=== PATIENT | male | born 1960 | race Caucasian/White ===

== ENCOUNTER 2019-10-11 07:30 | Outpatient (CLI) | payer OTHER, SELFPAY ==
[2019-10-11 08:54] LABS: Anion Gap 8 mmol/L (8-16); Blood Urea Nitrogen 15 mg/dL (7-18); Calcium 8.4 mg/dL (8.5-10.1); Carbon Dioxide 28 mmol/L (21-32); Chloride 105 mmol/L (98-108); Estimated Glomerular Filt Rate > 60; Glucose 140 mg/dL (70-99); Osmolality Calculated 294 mOsm/kg (285-295); Potassium 4.4 mmol/L (3.5-5.1); Sodium 141 mmol/L (136-145)
== END 2019-10-11 07:31 | disposition home or self-care (01) ==
PROVIDERS: PCP Family Medicine
DX: I27.20 Pulmonary hypertension, unspecified (principal)
CPT/HCPCS: 36415; 80048

== ENCOUNTER 2020-02-03 08:40 | Outpatient (CLI) | payer OTHER, SELFPAY ==
[2020-02-03 09:01] LABS: Hemoglobin A1C 6.7 % (<5.7)
== END 2020-02-03 08:41 | disposition home or self-care (01) ==
LOC: CHSLAB 08:43
PROVIDERS: PCP Family Medicine; Visit Provider Family Medicine
DX: R73.03 Prediabetes (principal); K63.5 Polyp of colon; I10 Essential (primary) hypertension; R03.0 Elevated blood-pressure reading, without diagnosis of hypertension; I48.91 Unspecified atrial fibrillation
CPT/HCPCS: 36415; 83036

== ENCOUNTER 2020-08-14 08:43 | Outpatient (CLI) | payer OTHER, SELFPAY ==
[2020-08-14 08:54] LABS: Basophils Absolute Auto 0.04 K/mm3 (0.00-0.10); Basophils Percent Auto 0.5 % (0.0-1.0); Hematocrit 46.9 % (40.0-54.0); Hemoglobin 15.8 g/dL (14.0-18.0); Immature Granulocyte Absolute 0.03 K/mm3 (0.00-0.00); Immature Granulocyte Percent A 0.4 % (0.0-0.0); Lymphocytes Percent Auto 19.6 % (18.0-42.0); Mean Corpuscular HGB Conc 33.7 g/dL (32.0-36.0); Mean Corpuscular Hemoglobin 30.2 pg (27.0-31.0); Mean Corpuscular Volume 89.7 fL (78.0-102.0); Mean Platelet Volume 9.8 fl (8.7-11.0); Monocytes Absolute Auto 0.65 K/mm3 (0.10-0.90); Monocytes Percent Auto 8.5 % (2.0-11.0); Neutrophils Absolute Auto 5.4 K/mm3 (1.7-7.2); Platelet Count Result 205 K/mm3 (150-420); Red Blood Count 5.23 M/mm3 (4.70-6.10); Red Cell Distribution Width 13.1 % (11.6-14.4); White Blood Count 7.7 K/mm3 (4.8-10.8)
[2020-08-14 09:03] LABS: Hemoglobin A1C 5.8 % (<5.7)
[2020-08-14 09:53] LABS: Alanine Aminotransferase 23 U/L (16-63); Albumin Level 3.5 g/dL (3.4-5.0); Alkaline Phosphatase 69 U/L (46-116); Anion Gap 10 mmol/L (8-16); Aspartate Amino Transferase 27 U/L (15-37); Bilirubin,Total 0.3 mg/dL (0.00-1.00); Blood Urea Nitrogen 17 mg/dL (7-18); Calcium 8.5 mg/dL (8.5-10.1); Carbon Dioxide 29 mmol/L (21-32); Chloride 106 mmol/L (98-108); Cholesterol 158 mg/dL (0-200); Estimated Glomerular Filt Rate > 60; Glucose 125 mg/dL (70-99); HDL Direct 49 mg/dL (40-60); LDL Cholesterol Calculated 95 mg/dL (<130); Osmolality Calculated 302 mOsm/kg (285-295); Potassium 4.5 mmol/L (3.5-5.1); Sodium 145 mmol/L (136-145); Total Protein 6.4 g/dL (6.4-8.2); Triglycerides 68 mg/dL (0-150)
[2020-08-14 10:07] LABS: Thyroid Stimulating Hormone Reflex 0.73 u/IU/mL (0.36-3.74)
== END 2020-08-14 08:44 | disposition home or self-care (01) ==
LOC: CHSLAB 08:45
PROVIDERS: PCP Family Medicine; Visit Provider Family Medicine
DX: E11.9 Type 2 diabetes mellitus without complications (principal); I10 Essential (primary) hypertension
CPT/HCPCS: 36415; 80053; 80061; 83036; 84443; 85025

== ENCOUNTER 2022-03-30 07:02 | Outpatient (CLI) | payer BC, SELFPAY ==
--- NOTE | ~2022-03-30 | XR_ITS ---
EXAMINATION: XR knee LT 2V DATE: 03/30/2022 07:28 INDICATION: Left knee pain TECHNIQUE: Two views of the left knee were obtained. COMPARISON: None. FINDINGS: Alignment is normal. No fracture or osteochondral lesion. There is moderate tricompartmenta l osteoarthritis and chondrocalcinosis of menisci. No joint effusion/synovitis. Soft tissues are unr emarkable. IMPRESSION: 1. Tricompartmental osteoarthritis. Reviewed, dictated and finalized at location B. ETING ANALYTICS SPECIALIST
--- NOTE | ~2022-03-30 | XR_ITS ---
EXAMINATION: XR knee RT 2V DATE: 03/30/2022 07:28 INDICATION: Right knee pain TECHNIQUE: Two views of the right knee were obtained. COMPARISON: None. FINDINGS: Alignment is normal. No fracture or osteochondral lesion. There is mild to moderate tricomp artmental osteoarthritis. No joint effusion/synovitis. Calcified atherosclerosis is noted. IMPRESSION: 1. Tricompartmental osteoarthritis. Reviewed, dictated and finalized at location B. SPORTATION REFRIGERATION TECHNICIAN
[2022-03-30 07:25] LABS: Basophils Absolute Auto 0.04 K/mm3 (0.00-0.10); Basophils Percent Auto 0.4 % (0.0-1.0); Eosinophils Absolute Auto 0.02 K/mm3 (0.02-0.50); Eosinophils Percent Auto 0.2 % (1.0-6.0); Hematocrit 46.2 % (40.0-54.0); Hemoglobin 15.5 g/dL (14.0-18.0); Immature Granulocyte Absolute 0.03 K/mm3 (0.00-0.00); Immature Granulocyte Percent A 0.3 % (0.0-0.0); Lymphocytes Absolute Auto 2.44 K/mm3 (1.10-4.50); Lymphocytes Percent Auto 25.4 % (18.0-42.0); Mean Corpuscular HGB Conc 33.5 g/dL (32.0-36.0); Mean Corpuscular Hemoglobin 30.1 pg (27.0-31.0); Mean Corpuscular Volume 89.7 fL (78.0-102.0); Mean Platelet Volume 10.1 fl (8.7-11.0); Monocytes Percent Auto 9.4 % (2.0-11.0); Neutrophils Absolute Auto 6.2 K/mm3 (1.7-7.2); Neutrophils Percent Auto 64.3 % (50.0-70.0); Platelet Count Result 230 K/mm3 (150-420); Red Blood Count 5.15 M/mm3 (4.70-6.10); Red Cell Distribution Width 12.2 % (11.6-14.4); White Blood Count 9.6 K/mm3 (4.8-10.8)
[2022-03-30 07:35] LABS: Hemoglobin A1C 6.3 % (<5.7)
[2022-03-30 08:05] LABS: Alanine Aminotransferase 19 U/L (16-63); Albumin Level 3.7 g/dL (3.4-5.0); Alkaline Phosphatase 69 U/L (46-116); Anion Gap 2 mmol/L (8-16); Aspartate Amino Transferase 20 U/L (15-37); Bilirubin,Total 0.5 mg/dL (0.00-1.00); Blood Urea Nitrogen 18 mg/dL (7-18); Calcium 8.4 mg/dL (8.5-10.1); Carbon Dioxide 33 mmol/L (21-32); Chloride 101 mmol/L (98-108); Cholesterol 182 mg/dL (0-200); Estimated Glomerular Filt Rate > 60; Glucose 146 mg/dL (70-99); HDL Direct 46 mg/dL (40-60); LDL Cholesterol Calculated 127 mg/dL (<130); Osmolality Calculated 286 mOsm/kg (285-295); Sodium 136 mmol/L (136-145); Total Protein 6.8 g/dL (6.4-8.2); Triglycerides 46 mg/dL (0-150)
== END 2022-03-30 07:03 | disposition home or self-care (01) ==
LOC: CHSLAB 07:06
PROVIDERS: PCP Nurse Practitioner Family; Visit Provider Nurse Practitioner Family
DX: I10 Essential (primary) hypertension (principal); E11.9 Type 2 diabetes mellitus without complications; M25.562 Pain in left knee; M25.561 Pain in right knee; M17.0 Bilateral primary osteoarthritis of knee
CPT/HCPCS: 36415; 73560; 80053; 80061; 83036; 85025

== ENCOUNTER 2022-05-24 07:39 | Outpatient (CLI) | payer BC, SELFPAY ==
--- NOTE | ~2022-05-24 | XR_ITS ---
XR knee RT min 4V 05/24/2022 08:05 Indication: Chronic bilateral knee pain Procedure: 4 views right knee Comparison: 03/30/2022 Findings: There is stable mild-moderate tricompartment osteoarthritis, most advanced in the medial kelli int space. There is a loose body along the dorsal aspect of the joint. No acute fracture or traumatic malalignment. No joint effusion. No foreign bodies. Impression: 1: Stable mild-moderate tricompartment osteoarthritis. Reviewed, dictated and finalized at location L. Impression: 1: Stable mild-moderate tricompartment osteoarthritis.
--- NOTE | ~2022-05-24 | XR_ITS ---
EXAMINATION: XR knee LT min 4V DATE: 05/24/2022 08:05 INDICATION: Chronic left knee pain. TECHNIQUE: 4 views of left knee including weightbearing views were obtained. COMPARISON: Left knee radiographs 03/30/2022 FINDINGS: There is varus angulation at the knee. No fracture. There is severe osteoarthritis of media l compartment, mild osteoarthritis of lateral compartment, moderate osteoarthritis of patellofemoral compartment. There is chondrocalcinosis of the menisci. No knee joint effusion. IMPRESSION: 1. Severe left knee osteoarthritis. Reviewed, dictated and finalized at location A.
== END 2022-05-24 07:40 | disposition home or self-care (01) ==
LOC: CHSIMG 07:43
PROVIDERS: PCP Nurse Practitioner Family; Visit Provider Orthopaedic Surgery
DX: M25.561 Pain in right knee (principal); M25.562 Pain in left knee; M17.0 Bilateral primary osteoarthritis of knee
CPT/HCPCS: 73564

== ENCOUNTER 2022-09-14 15:09 | Outpatient (CLI) | payer BC, SELFPAY ==
[2022-09-14 17:12] LABS: Urine Cotinine NEGATIVE
== END 2022-09-14 15:10 | disposition home or self-care (01) ==
LOC: ANHLAB 15:11
PROVIDERS: PCP Nurse Practitioner Family; Visit Provider Orthopaedic Surgery
DX: Z01.818 Encounter for other preprocedural examination (principal); M17.12 Unilateral primary osteoarthritis, left knee; F17.200 Nicotine dependence, unspecified, uncomplicated
CPT/HCPCS: 80307

== ENCOUNTER 2022-10-06 12:49 | Outpatient (CLI) | payer BC, SELFPAY ==
[2022-10-06 14:21] LABS: Basophils Percent Auto 0.3 % (0.2-1.2); Hematocrit 48.8 % (42.0-52.0); Hemoglobin 16.3 g/dL (14.0-18.0); Immature Granulocyte Absolute 0.03 K/mm3 (0.00-0.031); Immature Granulocyte Percent A 0.3 % (0-0.5); Lymphocytes Absolute Auto 2.17 K/mm3 (0.9-3.2); Lymphocytes Percent Auto 21.4 % (18.3-44.2); Mean Corpuscular HGB Conc 33.4 g/dl (32-36); Mean Corpuscular Hemoglobin 29.9 pg (26-34); Mean Corpuscular Volume 89.4 fl (80-100); Mean Platelet Volume 9.8 fl (7.4-10.4); Monocytes Percent Auto 9.6 % (2.6-8.5); Neutrophils Absolute Auto 6.9 K/mm3 (1.3-6.7); Neutrophils Percent Auto 68.4 % (45.5-73.1); Platelet Count Result 191 k/mm3 (150-375); Red Blood Count 5.46 M/mm3 (4.6-6.20); Red Cell Distribution Width 13.2 % (11.5-14.5); White Blood Count 10.1 K/mm3 (4.5-10.0)
[2022-10-06 14:31] LABS: Albumin Level 4.1 g/dL (3.5-5.1); Anion Gap 6 mmol/L (8-16); Blood Urea Nitrogen 17 mg/dL (9-20); Calcium 8.7 mg/dL (8.4-10.2); Carbon Dioxide 28 mmol/L (22-30); Chloride 104 mmol/L (98-107); Estimated Glomerular Filt Rate > 60; Glucose 128 mg/dL (65-110); Potassium 4.5 mmol/L (3.4-5.0); Sodium 138 mmol/L (137-145)
[2022-10-06 14:33] LABS: Hemoglobin A1C 6.1 % (<5.7)
[2022-10-06 14:35] LABS: Appearance Urine Clear (Clear); Bilirubin Urine Negative (Negative); Blood Urine Negative (Negative); Color Urine Yellow (Yellow); Glucose Urine UA Negative (Negative); Ketones Urine Negative (Negative); Leukocyte Esterase Ur Negative LEU/UL (Negative); Nitrate Urine Negative (Negative); Protein Urine Negative (Negative); Specific Grav Ur 1.006 (1.001-1.035); Urobilinogen Urine 0.2 mg/dL (<2.0)
[2022-10-06 14:40] LABS: Add Urine Microscopic? NO
== END 2022-10-06 12:50 | disposition home or self-care (01) ==
LOC: ANHSURGERY 12:52
PROVIDERS: PCP Nurse Practitioner Family; Visit Provider Orthopaedic Surgery
DX: Z01.818 Encounter for other preprocedural examination (principal); M17.12 Unilateral primary osteoarthritis, left knee
CPT/HCPCS: 36415; 80048; 81003; 82040; 83036; 85025; 85610; 85730; 86850; 86900; 86901; 87081

== ENCOUNTER 2022-10-18 00:18 | Day surgery (SDC) | payer BC, SELFPAY ==
--- NOTE | 2022-08-24 14:10 | PC.NURSE ---
PT HERE FOR PRE-OP APPT FOR UP COMING LT TKA - PT STATES CHEWING TOBACCO & LAST CHEWED 08/24/22 - DR. RADER'S OFFICE CALLED SPOKE WITH ELVIRA AND INFORMED OF ABOVE ALONG WITH PT SCHEDULED TO HAVE 2 UPPER TEETH EXTRACTED 08/29/22 - D/T NICOTINE USE PRE-OP APPT ABORTED AND PT INFORMED PER ELVIRA THAT ONCE TOBACCO FREE FOR 30 DAYS AND NEGATIVE COTININE TEST OBTAINED SURGERY WILL BE RESCHEDULED - UNDERSTANDING VOICED.
[2022-10-06 13:13] VITALS: BMI 29.6
--- NOTE | 2022-10-06 13:25 | PC.NURSE ---
Report to the Outpatient Waiting Room, entrance under the green pavilion located off [facility], at time _8:30AM on date __10/18/22 . Planned Procedure Time: __10:30AM . Time changes happen often and if your time is changed the preop area will call you the afternoon before. - You and your visitor will be asked to self-screen and do not enter if you have any COVID symptoms. - A mask is optional within the hospital at this time. Patients may have clear liquids (water, carbonated beverages, clear teas, apple juice) until 3 hours prior to surgery with a maximum of 20 ounces. - No food from midnight until time of surgery Take the following medications with a SIP of water the morning of surgery: ___NONE DO NOT STOP ANY OF YOUR OTHER PRESCRIPTION MEDICATIONS PRIOR TO SURGERY ?EXCEPT THE FOLLOWING Medications to discontinue per physician ____HOLD INDOMETHACIN PER DR RADER HOLD ALL VITAMINS/SUPPLEMENTS 3 DAYS PRE-OP PER ANESTHESIA Date to take last dose____10/13/22 Please no make-up, nail italian, hairspray, perfume, deodorant, or body powder the day of surgery. No jewelry (including any body piercings) or valuables the day of surgery, leave them at home. Please take a shower or bath the night before, or the morning of, surgery with an antibacterial soap. Wear comfortable, loose fitting clothing. Children are encouraged to wear pajamas. - Jewelry must be removed prior to entering the operating room. Rings and piercings that are not removed may be cut off. - The hospital will not accept responsibility for valuables. - Please leave all valuables, including medications, at home the day of surgery. If you are going home after surgery, a licensed experienced truck driver must drive you home. - NO public transportation without another adult if you receive anesthesia. - We recommend that an adult stay with you for 24 hours following discharge. - We also recommend that you do not drive, make important decision, drink alcoholic beverages, or take any drugs that were not prescribed by your health care provider for at least 24 hours after your discharge time. Follow any additional instructions given to you from your surgeon. HIBICLENS SHOWER EVERY DAY FOR 3 DAYS PRIOR TO SURGERY. If you or anyone in your household have experienced Covid symptoms in the past week, please notify your surgeon or the nurse liaison at the phone number below for possible testing. Telephone instructions given to ___PATIENT and asked if any additional questions and then verbalized understanding. Patient advised to call surgeon office or pre surgery nurse liaison [phone] if any additional questions.
[2022-10-18] VITALS (13 sets, daily range): BP systolic 126–187; BP diastolic 72–98; PULSE 57–93; RESP 10–20; TEMP 35.7–36.6; O2SAT 92–100; BMI 29.0
--- NOTE | ~2022-10-18 | XR_ITS ---
EXAMINATION: [id number] DATE: 10/18/2022 14:21 INDICATION: Total left knee arthroplasty. Postop. TECHNIQUE: 2 views of left knee were obtained. COMPARISON: Left knee radiographs 05/24/2022 FINDINGS: There is a total left knee arthroplasty without patellar resurfacing in near-anatomic align ment. There are osteophytes of the patella. There is gas in the knee joint and soft tissues, consiste nt with recent surgery. There is a dystrophic calcification in the area of the posterior knee joint c apsule. Anterior skin tyson are noted. IMPRESSION: 1. Total left knee arthroplasty in near-anatomic alignment. Reviewed, dictated and finalized at location A.
--- NOTE | 2022-10-18 07:32 | WPDHPUPDATE1 ---
History and Physical Update Update Date/Time: 10/18/22 07:32 History and Physical has been reviewed, including an updated exam of the patient. There are NO changes in the patient's condition. Risks, benefits, and alternatives have been discussed and questions answered. Patient agrees to proceed with procedure.
--- NOTE | 2022-10-18 08:14 | WPDANESEPPF ---
Anes - Initial Pre Proc Eval Procedure: Operation Date: 10/18/22 10:30 Proposed Procedures p Left Total Knee Arthroplasty - Mitchell Ba MD Date/Time: 10/18/22 08:14 Surgeon: Mitchell Ba MD Pre Op Diagnosis: left knee DJD Patient Data Age: 62 Gender: M Height: 1.67 m Weight: 82.6 kg Allergies Allergy/AdvReac Type Severity Reaction Status Date / Time No Known Allergies Allergy Verified 10/11/22 09:10 Home Medications Medication Instructions Recorded Confirmed Type indomethacin 50 mg capsule 100 mg PO DAILY PRN joint pain 03/07/22 10/11/22 Rx #180 caps sildenafil 50 mg tablet See Rx Instructions .Route 03/09/22 10/11/22 Rx .COMPLEX #30 tabs chlorhexidine gluconate 4 % 1 applic topical DAILY #237 mL 10/05/22 10/11/22 Rx topical liquid (Hibiclens) ibuprofen 200 mg tablet 600 mg PO Q6H PRN Pain 10/06/22 10/11/22 History lisinopril 20 mg tablet 20 mg PO QAM 10/06/22 10/11/22 History metformin 500 mg tablet 500 mg PO HS 10/06/22 10/11/22 History misoprostol 200 mcg tablet 200 mcg PO DAILY PRN Indigestion 10/06/22 10/11/22 History montelukast 10 mg tablet 10 mg PO QAM 10/06/22 10/11/22 History tumeric 100 mg-anne 150 mg-olive 1 cap PO DAILY 10/06/22 10/11/22 History 50 mg-oreg 150 mg-caprylate capsule Patient hx anesthesia problems: none Family hx anesthesia problems: none Results Review: All pre-operative results and documents have been reviewed as part of the pre-operative evaluation. [facility] Past Medical History Medical History Arthritis Colon polyps Erectile dysfunction Hypertension Need for influenza vaccination Swelling of left hand Type 2 diabetes mellitus without complications Surgical History Surgical History H/O knee surgery H/O prior ablation treatment History of back surgery Social History Social History (Updated 10/18/22 @ 09:56 by Tej Pacheco DO) Smoking status: Never smoker Smokeless tobacco user: chewing tobacco Additional smoking assessment comments: QUIT CHEWING TOBACCO 08/25/22, CHEWED FOR 20 YEARS PRIOR Alcohol intake: current Alcohol use details: 3-6 drinks/day Substance use: never Substance use type: does not use Lack of Transportation: No Lack of Food: Never True Current Housing: I Have Housing Concerned About Future Housing: No Difficulty Paying Gas/Electric Bills: No Difficulty Paying for Meds: No Currently Unemployed: No Education: High School Diploma/GED Difficulty w/ Childcare or Family Care: No Living arrangements: alone Additional living arrangements comments: [place] 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 Informed Consent: The patient's anesthetic plan and its attendant risks and benefits were discussed with the patient/family/POA. Questions were solicited and answers provided to the satisfaction of the patient/family/POA.
--- NOTE | 2022-10-18 08:15 | WPDANESPNB ---
Anes - Peripheral Nerve Block Date/Time: 10/18/22 08:15 I have discussed with the patient/family/POA the placement of a peripheral nerve block for post-operative pain management, including associated risks, benefits, complications, and side effects. Alternative methods of post-operative analgesia were detailed. Questions were solicited and answers provided to the satisfaction of the patient/family/POA. Time-Out: A pre-procedural Time-Out was completed immediately before starting the procedure and confirmed: Patient Identification, Site, Procedure, Patient Position and the Availability of Requisite Equipment. Clinical Indications: Acute post-operative pain management requested by the operative surgeon. Nerve Block Insertion Note Anes-nerve block: adductor canal left Patient position: supine Skin prep: chlorhexidine Needle: 22 gauge, stimulating, insulated echogenic needle. Needle length: 80 mm Technique: ultrasound Injectate: bupivacaine 0.5% with epi 5 mcg/ml (30cc - no epi) Observations: tolerated well Complications: none Procedure start time:: 1025 Procedure end time:: 1030
[2022-10-18] MEDS: LACTATED RINGERS 1,000 ML 30 ML IV CONT ×2 (09:45→13:46)
[2022-10-18 09:58] LABS: Glucose Point of Care 140 mg/dl (65-105)
[2022-10-18] MEDS: ACETAMINOPHEN 500 MG TABLET 1000 MG PO (09:59)
[2022-10-18] MEDS: TRANEXAMIC ACID 1,000MG/ISO100 1,000 MG/100 ML BAG 200 MG IVPB (10:00)
[2022-10-18] MEDS: ceFAZolin 2 GM/D5W 50 ML 2 GM/50 ML BAG IVPB ×2 (10:51→16:57)
[2022-10-18] MEDS: TRANEXAMIC ACID 1,000 MG/10 ML AMPUL 1000 MG IV PUSH (13:13)
--- NOTE | 2022-10-18 13:39 | W.PM.PROC2 ---
Procedure Note - Detailed Date of Procedure 10/18/22 Pre-op Diagnosis left knee DJD Post-op Diagnosis Same Procedure Performed L TKA Surgeon Mitchell Ba MD Anesthesia General Description of Procedure THE LEFT KNEE WAS PREPPED AND DRAPED IN THE STERILE FASHION. THERE WAS A 10 FLEXION CONTRACTURE. A MIDLINE SKIN INCISION WAS MADE. A MEDIAL PARAPATELLAR ARTHROTOMY WAS MADE. THE PATELLA WAS EVERTED. THERE WAS TRICOMPARTMENT DJD. THERE WAS MINIMAL PATELLA DJD. AN INTRAMEDULLARY CECILIA WAS PLACED IN THE FEMUR. A DISTAL FEMORAL CUT WAS MADE IN 5 DEGREES OF VALGUS REMOVING APPROXIMATELY 10 MM OF BONE FROM THE DISTAL FEMUR. THE FEMUR WAS SIZED TO 65. A 65 FEMORAL CUTTING BLOCK WAS PLACED IN 3 DEGREES OF EXTERNAL ROTATION AND IN ALIGNMENT WITH ADAM'S LINE AND THE TRANSEPICONDYLAR AXIS. ANTERIOR POSTERIOR AND CHAMFER CUTS WERE MADE. THE CUTS WERE EXCELLENT. NEXT AN INTRAMEDULLARY CUTTING GUIDE WAS PLACED IN THE TIBIA. A TRANS TIBIAL CUT WAS MADE ALONG THE LONG AXIS OF THE TIBIA. APPROXIMATELY 10 MM OF BONE WAS REMOVED FROM THE HIGH SIDE OF THE TIBIA. THE TIBIA WAS THEN PLANED TO A SMOOTH SURFACE. POSTERIOR FEMORAL OSTEOPHYTES WERE REMOVED FROM THE FEMORAL CONDYLES. A 79 TIBIAL TRIAL WAS PLACED IN ALIGNMENT WITH THE 1/3 MEDIAL ASPECT OF THE TIBIAL TUBERCLE. THEN A 65 FEMORAL TRIAL COMPONENT WAS PLACED. BOTH HAD EXCELLENT FITS. EVENTUALLY A 10 MM CR POLYETHYLENE TRIAL COMPONENT WAS PLACED. THE KNEE WAS TAKEN THROUGH A RANGE OF MOTION. THE KNEE CAME OUT TO FULL EXTENSION. THERE WAS NO ABNORMAL TILT TO THE PATELLA. THERE WAS GOOD A/P AND VARUS/VALGUS STABILITY. THERE WAS NO EXCESSIVE ROLL BACK WITH FLEXION. THE TRIAL COMPONENTS WERE REMOVED. THEN A 65 FEMORAL COMPONENT AND 79 TIBIAL COMPONENT WITH A 10 CR POLYETHYLENE COMPONENT WERE CEMENTED INTO PLACE. ONCE THE CEMENT WAS HARD THE KNEE WAS TAKEN THROUGH A ROM AGAIN AND FOUND TO BE STABLE WITH NO PATELLA TILT NO EXCESSIVE ROLL BACK WITH FLEXION AND GOOD STABILITY WITH COMPLETE AND FULL EXTENSION. THE KNEE WAS IRRIGATED WITH STERILE BETADINE AND WATER FOR ABOUT 3 MINUTES. THE BLEEDERS WERE CAUTERIZED. THE ARTHROTOMY WAS REPAIRED WITH NUMBER 1 VICRYL. THE SUB CUTANEOUS LAYER WITH 2-0 VICRYL AND THE SKIN WITH LALO. THE WOUND WAS WASHED AND A STERILE DRESSING WAS APPLIED. PATIENT WAS EXTUBATED. Estimated Blood Loss -175 Pathology None sent Complications No immediate complications Condition Stable Disposition PACU
[2022-10-18] MEDS: KETOROLAC 30 MG/ML VIAL (*BKC) IV PUSH (13:52)
[2022-10-18 13:59] LABS: Glucose Point of Care 191 mg/dl (65-105)
[2022-10-18] MEDS: HYDROmorphone HCL INJ (*CRX) 1 MG/ML SYR 0.5 MG IV PUSH ×2 (14:17→14:22)
--- NOTE | 2022-10-18 15:32 | SUR.PHASEI ---
Dr. Mendoza aware of BP and no treatment at this time.
--- NOTE | 2022-10-18 16:00 | ADMGEN ---
This patient, Seth Johnson, was admitted to [facility] Surg Room 323-01. Patient/family oriented to hospital policies and general routines including ID bracelet, bed and alarms, visiting hours, pain management, procedures, bathroom and other care routines, personal items, smoking policy, room service/diet, and visiting hours. Information on how to activate the Rapid Response Team has been discussed. Patient/Family are encouraged to report perceived risks to care and to ask questions if they do not understand what they are told or what they should do.
[2022-10-18] MEDS: SODIUM CHLORIDE 0.9% IV 1,000 ML 125 ML IV CONT (16:57)
[2022-10-18] MEDS: SENNA/DOCUSATE SODIUM TABLET 2 TAB PO (17:01)
[2022-10-18] MEDS: KETOROLAC 15 MG/ML VIAL (*BKC) IV PUSH (17:03)
[2022-10-18] MEDS: ONDANSETRON INJ 4 MG/2 ML VIAL IV PUSH (19:01)
[2022-10-18] MEDS: FAMOTIDINE 20 MG TABLET PO (20:29)
[2022-10-18] MEDS: metFORMIN HCL 500 MG TABLET PO (20:29)
[2022-10-18] MEDS: ASPIRIN 325 MG ENTERIC TABLET PO (20:29)
[2022-10-19] VITALS: BP 144/85; PULSE 77; RESP 12; TEMP 36.5; O2SAT 97
[2022-10-19] MEDS: KETOROLAC 15 MG/ML VIAL (*BKC) IV PUSH ×2 (01:55→09:05)
[2022-10-19] MEDS: ceFAZolin 2 GM/D5W 50 ML 2 GM/50 ML BAG IVPB ×2 (01:55→09:05)
[2022-10-19 04:00] VITALS: BP 138/83; PULSE 70; RESP 14; TEMP 36.8; O2SAT 96
[2022-10-19 06:42] LABS: Basophils Percent Auto 0.1 % (0.2-1.2); Hematocrit 39.2 % (42.0-52.0); Hemoglobin 12.7 g/dL (14.0-18.0); Immature Granulocyte Absolute 0.35 K/mm3 (0.00-0.031); Immature Granulocyte Percent A 2.2 % (0-0.5); Lymphocytes Percent Auto 10.6 % (18.3-44.2); Mean Corpuscular HGB Conc 32.4 g/dl (32-36); Mean Corpuscular Hemoglobin 29.7 pg (26-34); Mean Corpuscular Volume 91.8 fl (80-100); Mean Platelet Volume 10.1 fl (7.4-10.4); Monocytes Absolute Auto 1.4 K/mm3 (0.1-0.6); Monocytes Percent Auto 8.8 % (2.6-8.5); Neutrophils Absolute Auto 12.6 K/mm3 (1.3-6.7); Neutrophils Percent Auto 78.3 % (45.5-73.1); Platelet Count Result 180 k/mm3 (150-375); Red Blood Count 4.27 M/mm3 (4.6-6.20); White Blood Count 16.1 K/mm3 (4.5-10.0)
[2022-10-19 06:48] LABS: Anion Gap 4 mmol/L (8-16); Blood Urea Nitrogen 15 mg/dL (9-20); Calcium 7.6 mg/dL (8.4-10.2); Carbon Dioxide 26 mmol/L (22-30); Chloride 103 mmol/L (98-107); Estimated CRCL calculation 75 ml/min; Estimated Glomerular Filt Rate > 60; Glucose 210 mg/dL (65-110); Sodium 133 mmol/L (137-145)
[2022-10-19 07:32] VITALS: BP 135/75; PULSE 68; RESP 18; TEMP 36.7; O2SAT 98
[2022-10-19] MEDS: FAMOTIDINE 20 MG TABLET PO (08:57)
[2022-10-19] MEDS: MONTELUKAST SODIUM 10 MG TABLET PO (08:57)
[2022-10-19] MEDS: SENNA/DOCUSATE SODIUM TABLET 2 TAB PO (08:58)
[2022-10-19] MEDS: polyethylene glycoL 3350 17 GM POWD.PACK PO (08:58)
[2022-10-19] MEDS: lisinopriL 20 MG TABLET PO (08:58)
[2022-10-19] MEDS: ASPIRIN 325 MG ENTERIC TABLET PO (08:58)
[2022-10-19 09:59] VITALS: O2SAT 97
--- NOTE | 2022-10-19 10:53 | PM.PNORT ---
Progress Note: A&P Assessment and Plan (1) Left knee DJD: Code(s): M17.12 - Unilateral primary osteoarthritis, left knee Status: Acute Assessment and Plan: POD 1 DOING WELL. OK TO DC HOME F/U IN 3 WEEKS Subjective Subjective Date/Time Seen: 10/19/22 10:53 Interval history: POD 1 DOING WELL. NO CALF PAIN. GOOD PROGRESS WITH PT Exam Extrem: Other: VSS AFEBRILE DRESSING DRY NV INTACT CALF SOFT NON TENDER NEG HOMANS SIGN Objective Data Vital Signs Vital Signs: Vital Signs - 24 hr 10/18/22 13:46 10/18/22 14:00 10/18/22 14:15 Temperature 36.5 C Pulse Rate 90 76 93 Respiratory Rate 12 10 L 19 Blood Pressure 172/96 H 175/86 H 187/93 H Pulse Oximetry 94 97 92 Oxygen Delivery Simple Face Mask Room Air Room Air Oxygen Flow Rate 6 10/18/22 14:30 10/18/22 14:45 10/18/22 15:00 Temperature Pulse Rate 71 77 82 Respiratory Rate 12 20 15 Blood Pressure 169/89 H 172/81 H 158/96 H Pulse Oximetry 95 97 99 Oxygen Delivery Nasal Cannula Nasal Cannula Nasal Cannula Oxygen Flow Rate 3 3 3 10/18/22 15:15 10/18/22 16:00 10/18/22 16:15 Temperature 36.6 C 35.9 C L Pulse Rate 74 75 76 Respiratory Rate 12 16 18 Blood Pressure 175/90 H 169/88 H 164/86 H Pulse Oximetry 97 98 100 Oxygen Delivery Nasal Cannula Oxygen Flow Rate 3 10/18/22 16:45 10/18/22 17:45 10/18/22 20:00 Temperature 35.9 C L 35.7 C L 36.3 C L Pulse Rate 69 70 75 Respiratory Rate 16 20 14 Blood Pressure 170/98 H 149/93 H 154/80 H Pulse Oximetry 100 100 96 Oxygen Delivery Oxygen Flow Rate 10/18/22 20:00 10/19/22 00:00 10/19/22 04:00 Temperature 36.5 C 36.8 C Pulse Rate 77 70 Respiratory Rate 12 14 Blood Pressure 144/85 H 138/83 Pulse Oximetry 97 96 Oxygen Delivery Room Air Oxygen Flow Rate 10/19/22 07:32 10/19/22 09:55 10/19/22 09:59 Temperature 36.7 C Pulse Rate 68 Respiratory Rate 18 Blood Pressure 135/75 Pulse Oximetry 98 97 Oxygen Delivery Room Air Room Air Oxygen Flow Rate Intake/Output Intake/Output: Intake & Output 10/16/22 10/17/22 10/18/22 10/19/22 23:59 23:59 23:59 23:59 Intake Total 920 786 Output Total 800 Balance 920 -14 Meds/Results Medications: Active Medications Generic Name Dose Route Start Last Admin Trade Name Freq PRN Reason Stop Dose Admin Acetaminophen 1,000 mg 10/18/22 15:33 Acetaminophen 500 Mg Tablet PO Q6H PRN Pain Rated 1-3 Aspirin 325 mg 10/18/22 21:00 10/19/22 08:58 Aspirin 325 Mg Enteric Tablet PO 325 mg Q12HR NICOLE Administration Diazepam 5 mg 10/18/22 15:33 Diazepam (*Crx) 5 Mg Tablet PO Q8H PRN Spasms Diphenhydramine HCl 25 mg 10/18/22 15:33 Diphenhydramine Hcl Inj 50 Mg/Ml Vial IV PUSH Q6H PRN Itching Famotidine 20 mg 10/18/22 21:00 10/19/22 08:57 Famotidine 20 Mg Tablet PO 20 mg Q12HR NICOLE Administration Ketorolac Tromethamine 15 mg 10/18/22 15:33 10/19/22 09:05 Ketorolac 15 Mg/Ml Vial (*Bkc) IV PUSH 10/19/22 12:01 15 mg Q6HR NICOLE Administration Lisinopril 20 mg 10/19/22 09:00 10/19/22 08:58 Lisinopril 20 Mg Tablet PO 20 mg QAM NICOLE Administration Metformin HCl 500 mg 10/18/22 21:00 10/18/22 20:29 Metformin Hcl 500 Mg Tablet PO 500 mg HS NICOLE Administration Misoprostol 200 mcg 10/18/22 15:33 Misoprostol 200 Mcg Tablet PO DAILY PRN Indigestion Montelukast Sodium 10 mg 10/19/22 09:00 10/19/22 08:57 Montelukast Sodium 10 Mg Tablet PO 10 mg QAM NICOLE Administration Naloxone HCl 0.1 mg 10/18/22 15:33 Naloxone Hcl 0.4 Mg/Ml Vial IV PUSH Q2M PRN Opiate Reversal Ondansetron HCl 4 mg 10/18/22 15:33 10/18/22 19:01 Ondansetron Inj 4 Mg/2 Ml Vial IV PUSH 4 mg Q4H PRN Administration Nausea And Vomiting Oxycodone/Acetaminophen 1 tablet 10/18/22 15:33 Oxycodone/Acetaminophen (*Crx) 5-325 Mg Tablet PO Q4H PRN Pain Rated 4-6 Oxycodon
--- NOTE | 2022-10-19 10:56 | PM.DS ---
DS: Admitting Diagnosis Discharge Date 10/19/22 Admitting Diagnosis LEFT KNEE DJD DS: Discharge Diagnosis Discharge Diagnosis (1) Left knee DJD: Code(s): M17.12 - Unilateral primary osteoarthritis, left knee Status: Acute DS: Summary Hospital Course Reason for hospitalization: LEFT TKA Hospital Course: PATIENT WAS ADMITTED S/P TOTAL KNEE ARTHROPLASTY FOR POSTOPERATIVE MEDICAL MANAGEMENT, PAIN CONTROL AND MOBILIZATION WITH PHYSICAL AND OCCUPATIONAL THERAPY. THE PATIENT PROGRESSED WELL WITH PT/OT. LABS AND VITALS REMAINED STABLE AND PAIN WELL CONTROLLED. THE PATIENT HAS BEEN CLEARED TO BE DISCHARGED HOME. FOLLOW UP APPOINTMENT SCHEDULED. DISCHARGE INSTRUCTIONS DISCUSSED AT LENGTH WITH THE PATIENT. MEDICATIONS REVIEWED. Status at Discharge Cognitive/behavioral status at discharge: STABLE Time Spent with Patient Time attestation: Total time spent providing and/or coordinating discharge services: DS: Data Data Completed and Pending Labs on day of discharge: Labs from last 24 hours 10/19/22 10/18/22 06:22 13:53 WBC 16.1 H RBC 4.27 L Hgb 12.7 L D Hct 39.2 L MCV 91.8 MCH 29.7 MCHC 32.4 RDW 13.0 Plt Count 180 MPV 10.1 Immature Gran % (Auto) 2.2 H Neut % (Auto) 78.3 H Lymph % (Auto) 10.6 L [place] % (Auto) 8.8 H Eos % (Auto) 0.0 Baso % (Auto) 0.1 L Lymph # (Auto) 1.70 [place] # (Auto) 1.4 H Eos # (Auto) 0.0 Baso # (Auto) 0.0 Abs Immat Gran (auto) 0.35 H Absolute Neuts (auto) 12.6 H Absolute Nucleated RBC 0.0 Nucleated RBC % 0.0 Sodium 133 L Potassium 4.0 Chloride 103 Carbon Dioxide 26 Anion Gap 4 L BUN 15 Creatinine 0.80 Estim Creat Clear Calc 75 Estimated GFR > 60 Glucose 210 H POC Capillary Glucose 191 H Calcium 7.6 L Discharge Plan Discharge Attending physician on discharge: Mitchell Ba Discharging Clinician: Mitchell Ba Patient Disposition: Home Health Service Activity: may shower, no driving and follow weight bearing status Diet: as tolerated Wound Care Instructions: keep dressing dry Discharge Instructions: MITCHELL BA M.D. [facility] [address] [place] [address] POST OPERATIVE DISCHARGE INSTRUCTIONS FOLLOWING TOTAL KNEE REPLACEMENT SURGERY ? Your dressing will be changed prior to your discharge. You will be sent home with one additional dressing to be changed on post op day 7 by the home health RN. Your tyson will be removed on the 14th day after surgery and steri-strips will be placed. Please practice good hand hygiene and do not touch your incision in order to prevent infection. ? You may shower with your dressing but do not submerge in a bath tub. ? Do not drive or operate machinery until you are released by Dr. Ba. ? Do not walk without a walker for any reason until you are released by Dr. Ba. ? Continue to use your ice machine. Please use a towel or pillow case to protect your skin before applying your ice machine. ? Do NOT place a pillow under your knee. You may use a pillow from the calf down if needed. This will prevent a flexion contracture postoperatively. ? You may begin use of your CPM machine at home if you have been given one pre-operatively. DO NOT USE WHILE YOU ARE SLEEPING. ? Your first post op appointment was sent to you via mail preoperatively. If you have any questions or are unable to make your appointment, please contact our office for scheduling questions. ? Your medications have been sent to your pharmacy. You have been sent home with pain medication. We have also sent you with a stool softener as narcotics can cause constipation. Please keep this in mind during your postoperative recovery. If you are not experiencing regular bowel movements, please contact our office for further instruction. ? Please contact our office with any questions/concerns regarding
[2022-10-19 11:52] VITALS: BP 157/72; PULSE 66; RESP 20; TEMP 36.4; O2SAT 100
[2022-10-19] MEDS: oxyCODONE/ACETAMINOPHEN (*CRX) 5-325 MG TABLET 1 TABLET PO (12:01)
--- NOTE | 2022-10-19 13:38 | WPDANESPN ---
Anes - Prog Note Post-Op Date/Time: 10/19/22 13:38 Cardiovascular status: other (HTN. ) Respiratory status: normal Airway patency: baseline Mental status: baseline Post-Op hydration status: normal Vital Signs: Last Vital Signs Temp 36.4 C L 10/19/22 11:52 Pulse 66 10/19/22 11:52 Resp 20 10/19/22 11:52 BP 157/72 H 10/19/22 11:52 Pulse Ox 100 10/19/22 11:52 O2 Del Method Room Air 10/19/22 09:59 O2 Flow Rate 3 10/18/22 15:15 Pain Score (VAS): 03/25 I/O: Intake & Output 10/18/22 10/19/22 10/19/22 23:59 07:59 15:59 Intake Total 170 550 458 Output Total 600 200 Balance 170 -50 258 Laboratory Tests 10/19/22 06:22 10/19/22 06:22 10/18/22 10/19/22 13:53 06:22 WBC 16.1 H RBC 4.27 L Hgb 12.7 L D Hct 39.2 L MCV 91.8 MCH 29.7 MCHC 32.4 RDW 13.0 Plt Count 180 MPV 10.1 Immature Gran % (Auto) 2.2 H Neut % (Auto) 78.3 H Lymph % (Auto) 10.6 L [place] % (Auto) 8.8 H Eos % (Auto) 0.0 Baso % (Auto) 0.1 L Lymph # (Auto) 1.70 [place] # (Auto) 1.4 H Eos # (Auto) 0.0 Baso # (Auto) 0.0 Abs Immat Gran (auto) 0.35 H Absolute Neuts (auto) 12.6 H Absolute Nucleated RBC 0.0 Nucleated RBC % 0.0 Sodium 133 L Potassium 4.0 Chloride 103 Carbon Dioxide 26 Anion Gap 4 L BUN 15 Creatinine 0.80 Estim Creat Clear Calc 75 Estimated GFR > 60 Glucose 210 H POC Capillary Glucose 191 H Calcium 7.6 L Post-procedural complaints: none Patient Feedback: Patient satisfied with anesthetic care. Other Findings: patient reports block continues to provide relief. Pain is well controlled. he wishes to go home. he is satisfied with anesthesia care.
--- NOTE | 2022-10-19 15:05 | PC.NURSE ---
Pt is A&O4 male, who has participated and contributed in plan of care. Pt discharged home with significant other. Pt was educated on dressing change and was educated on discharge instructions. Pt has been up with therapy and compliant with care. Pt reports pain with movement and after therapy. Pt was monitored for any changes in status while here. Pt IV was removed tip intact prior to discharge, pt tolerated well. Pt was wheeled down to car, belongings sent with pt.
== END 2022-10-19 14:25 | disposition home or self-care (01) ==
LOC: ANHSURGERY 08:24 → ANH3MEDSUR 20:27 → ANHSURGERY 10-20 12:21
PROVIDERS: PCP Nurse Practitioner Family; Visit Provider Orthopaedic Surgery
PROC: (CPT 27447; principal; 2022-10-18 10:30)
DX: M17.12 Unilateral primary osteoarthritis, left knee (principal); G89.18 Other acute postprocedural pain; I10 Essential (primary) hypertension; E11.9 Type 2 diabetes mellitus without complications; Z87.891 Personal history of nicotine dependence; Z79.84 Long term (current) use of oral hypoglycemic drugs
CPT/HCPCS: 27447; 64447; 36415; 73560; 80048; 82948; 85025; 97110; 97116; 97161; 97165; 97530; 97535; A9270; C1713; C1776; J0171; J0690; J1100; J1170; J1885; J2250; J2270; J2405; J2704; J2795; J3010; J7030; J7120

== ENCOUNTER 2022-10-31 14:13 | Outpatient (CLI) | payer BC, SELFPAY ==
--- NOTE | ~2022-10-31 | XR_ITS ---
EXAMINATION: XR abdomen/kub 1V DATE: 10/31/2022 14:41 INDICATION: Frequent urination. TECHNIQUE: A supine view of the abdomen on 2 radiographs was obtained. COMPARISON: None. FINDINGS: There are no dilated loops of bowel. There is a moderate volume of stool in the colon. Ther e is no visible urolithiasis. Small calcifications overlying the pelvis are likely phleboliths. IMPRESSION: 1. Normal bowel gas pattern. Reviewed, dictated and finalized at location E.
[2022-10-31 14:29] LABS: Basophils Absolute Auto 0.06 K/mm3 (0.00-0.10); Basophils Percent Auto 0.4 % (0.0-1.0); Eosinophils Absolute Auto 0.01 K/mm3 (0.02-0.50); Eosinophils Percent Auto 0.1 % (1.0-6.0); Hematocrit 37.8 % (40.0-54.0); Hemoglobin 12.7 g/dL (14.0-18.0); Immature Granulocyte Absolute 0.13 K/mm3 (0.00-0.00); Immature Granulocyte Percent A 0.8 % (0.0-0.0); Immature Platelet Fraction Pct 1.2 % (1.0-7.0); Lymphocytes Absolute Auto 2.04 K/mm3 (1.10-4.50); Lymphocytes Percent Auto 12.3 % (18.0-42.0); Mean Corpuscular HGB Conc 33.6 g/dL (32.0-36.0); Mean Corpuscular Hemoglobin 30.1 pg (27.0-31.0); Mean Corpuscular Volume 89.6 fL (78.0-102.0); Mean Platelet Volume 8.8 fl (8.7-11.0); Monocytes Absolute Auto 1.03 K/mm3 (0.10-0.90); Monocytes Percent Auto 6.2 % (2.0-11.0); Neutrophils Absolute Auto 13.3 K/mm3 (1.7-7.2); Neutrophils Percent Auto 80.2 % (50.0-70.0); Platelet Count Result 585 K/mm3 (150-420); Red Blood Count 4.22 M/mm3 (4.70-6.10); Red Cell Distribution Width 12.6 % (11.6-14.4); White Blood Count 16.6 K/mm3 (4.8-10.8)
[2022-10-31 17:34] LABS: Alanine Aminotransferase 68 U/L (16-63); Albumin Level 3.7 g/dL (3.4-5.0); Alkaline Phosphatase 97 U/L (46-116); Anion Gap 9 mmol/L (8-16); Aspartate Amino Transferase 58 U/L (15-37); Bilirubin,Total 0.6 mg/dL (0.00-1.00); Blood Urea Nitrogen 28 mg/dL (7-18); Calcium 9.3 mg/dL (8.5-10.1); Carbon Dioxide 26 mmol/L (21-32); Chloride 102 mmol/L (98-108); Estimated Glomerular Filt Rate 55; Glucose 174 mg/dL (70-99); Osmolality Calculated 293 mOsm/kg (285-295); Potassium 4.8 mmol/L (3.5-5.1); Prostate Specific Antigen 0.6 ng/mL (< OR = 4.0); Sodium 137 mmol/L (136-145); Total Protein 7.2 g/dL (6.4-8.2)
== END 2022-10-31 14:14 | disposition home or self-care (01) ==
LOC: CHSLAB 14:16
PROVIDERS: PCP Nurse Practitioner Family; Visit Provider Nurse Practitioner Family
DX: R31.9 Hematuria, unspecified (principal); R35.1 Nocturia
CPT/HCPCS: 36415; 74018; 80053; 84153; 85025; 85055

== ENCOUNTER 2022-11-08 08:35 | Outpatient (CLI) | payer BC, SELFPAY ==
--- NOTE | ~2022-11-08 | XR_ITS ---
EXAMINATION: XR knee LT 3V DATE: 11/08/2022 08:52 INDICATION: Left knee pain. TECHNIQUE: 3 views of left knee were obtained. COMPARISON: Left knee radiographs 05/24/2022 FINDINGS: There is a total left knee arthroplasty without patellar resurfacing in near-anatomic align ment. No fracture. No periprosthetic lucency to suggest loosening or infection. There are osteophytes of the patella. There is a moderate-sized knee joint effusion. There is anterior knee soft tissue sw elling. IMPRESSION: 1. Total left knee arthroplasty in near-anatomic alignment. 2. Mild osteoarthritis of patellofemoral compartment. 3. Moderate-sized knee joint effusion. 4. Anterior knee soft tissue swelling. Reviewed, dictated and finalized at location A.
== END 2022-11-08 08:36 | disposition home or self-care (01) ==
LOC: CHSIMG 08:38
PROVIDERS: PCP Nurse Practitioner Family; Visit Provider Orthopaedic Surgery
DX: M17.12 Unilateral primary osteoarthritis, left knee (principal); Z96.652 Presence of left artificial knee joint; M25.462 Effusion, left knee; M79.89 Other specified soft tissue disorders; M25.562 Pain in left knee
CPT/HCPCS: 73562

== ENCOUNTER 2022-11-09 14:05 | Outpatient (RCR) | payer BC, SELFPAY ==
--- NOTE | 2022-11-09 14:56 | OPREHPOC ---
Outpatient Therapy Plan of Care This is a Multidisciplinary Plan of Care that may contain components documented by all disciplines (PT, OT, and ST.) PT Problem 1 PT Problem #1 Knowledge Deficit PT Goal 1 Goal 1. independent and compliant with HEP to improve tolerance for continued skilled PT and improve rom and strength Target Visit 6 PT Problem 2 PT Problem #2 Pain PT Goal 1 Goal 1. patient to report 3/10 or less pain at worst in the last week Target Visit 12 PT Problem 3 PT Problem #3 Impaired Range of Motion PT Goal 1 Goal 1. 0-120 degrees active rom L knee mobility Target Visit 12 PT Problem 4 PT Problem #4 Impaired Strength PT Goal 1 Goal 1. improve L knee strength to 4+/5 or better extension Target Visit 12 PT Problem 5 PT Problem #5 Impaired Functional Mobil PT Goal 1 Goal 1. patient to DC need of AD for ambulation 2. patient to ambulate with reciprocal gait mechanics with equal stance time and weight bearing 3. patient to ambulate up and down steps with reciprocal mechanics with 1 hand rail hold Target Visit 12
--- NOTE | 2022-11-09 14:56 | PTOPEVAL1 ---
Assessment and note entered by JT File, PT Evaluation Information Assessment Status Evaluation Diagnosis s/p L TKA Onset 10/18/22 Subjective Information patient reports he has L TKA on 10/18/22. he reports he has been at home doing exercises and using a CPM. he reports prior to surgery he was getting around okay, but was having pain daily. he reports Reported Pain Level Pain Score 0: Self Report Assessment PT Clinical Summary mr. hennessy is a 62 yo man who presents to skilled PT 22 days after L TKA. he presents with decreased rom, swelling, and weakness in the L LE. he also displays abnormal gait mechanics. he would benefit from continued skilled PT to address his objective/functional deficits to return to his prior level functional activity performance and quality of life. Plan of Care Interventions Electrical Stimulation,Gait Training,Hot Pack/Cold Pack,Intermittent Compression,Manual Therapy, Neuro Re-education,Patient/Caregiver Educati, Therapeutic Activities,Therapeutic Exercise PT Services Indicated Yes Treatment Frequency and 3x weekly for 12 visits Duration These treatments will address the objective and functional deficits as defined above. The patient will be advanced safely and appropriately in order for the patient to progress towards his/her prior level of function. Additional exercises will be introduced and as well as a comprehensive home exercise program upon discharge, if needed, ?to ensure carryover of functional gains achieved in the clinic. This treatment plan has been reviewed and agreement upon by the patient.
--- NOTE | 2022-11-30 08:48 | OPREHPOC ---
Outpatient Therapy Plan of Care This is a Multidisciplinary Plan of Care that may contain components documented by all disciplines (PT, OT, and ST.) PT Problem 1 PT Problem #1 Knowledge Deficit PT Goal 1 Goal 1. independent and compliant with HEP to improve tolerance for continued skilled PT and improve rom and strength Target Visit 6 Progress Met PT Problem 2 PT Problem #2 Pain PT Goal 1 Goal 1. patient to report 3/10 or less pain at worst in the last week Target Visit 12 Progress Partially Met Comment met at rest PT Problem 3 PT Problem #3 Impaired Range of Motion PT Goal 1 Goal 1. 0-120 degrees active rom L knee mobility Target Visit 12 Progress Partially Met PT Problem 4 PT Problem #4 Impaired Strength PT Goal 1 Goal 1. improve L knee strength to 4+/5 or better extension Target Visit 12 PT Problem 5 PT Problem #5 Impaired Functional Mobil PT Goal 1 Goal 1. patient to DC need of AD for ambulation. met 2. patient to ambulate with reciprocal gait mechanics with equal stance time and weight bearing 3. patient to ambulate up and down steps with reciprocal mechanics with 1 hand rail hold Target Visit 12 Progress Partially Met
--- NOTE | 2022-11-30 08:48 | PTOPPROG ---
Assessment and note entered by JT File, PT Evaluation Information Assessment Status Progress Diagnosis s/p L TKA Onset 10/18/22 Subjective Information patient reports in general he feels a little better this week. he reports he is not rushing to put ice on it when he gets home. he reports he is unsure when he has his next follow up with the MD . he reports he no longer has the CPM at home. Assessment PT Clinical Summary mr. hennessy presents to skilled PT fo his 10th skilled PT visit today. he has made significant improvements in L knee rom and gait mechanics. however, he continues to lack goals for full rom and normal gait mechanics. he would benefit from continued skilled PT to address his remaining objective/functional deficits to achieve all goals for skilled PT and return to prior level functional activities. as of this date, he has met goal for HEP performance, and make progress towards all other goals. Plan of Care Interventions Electrical Stimulation,Gait Training,Hot Pack/Cold Pack,Intermittent Compression,Manual Therapy, Neuro Re-education,Patient/Caregiver Educati, Therapeutic Activities,Therapeutic Exercise PT Services Indicated Yes Treatment Frequency and continue skilled PT 3x weekly for 8 more visits Duration These treatments will address the objective and functional deficits as defined above. The patient will be advanced safely and appropriately in order for the patient to progress towards his/her prior level of function. Additional exercises will be introduced and as well as a comprehensive home exercise program upon discharge, if needed, ?to ensure carryover of functional gains achieved in the clinic. This treatment plan has been reviewed and agreement upon by the patient.
--- NOTE | 2022-12-22 08:39 | OPREHPOC ---
Outpatient Therapy Plan of Care This is a Multidisciplinary Plan of Care that may contain components documented by all disciplines (PT, OT, and ST.) PT Problem 1 PT Problem #1 Knowledge Deficit PT Goal 1 Goal 1. independent and compliant with HEP to improve tolerance for continued skilled PT and improve rom and strength Target Visit 6 Progress Met PT Problem 2 PT Problem #2 Pain PT Goal 1 Goal 1. patient to report 3/10 or less pain at worst in the last week Target Visit 12 Progress Met Comment . PT Problem 3 PT Problem #3 Impaired Range of Motion PT Goal 1 Goal 1. 0-120 degrees active rom L knee mobility Target Visit 12 Progress Partially Met PT Problem 4 PT Problem #4 Impaired Strength PT Goal 1 Goal 1. improve L knee strength to 4+/5 or better extension Target Visit 12 PT Problem 5 PT Problem #5 Impaired Functional Mobil PT Goal 1 Goal 1. patient to DC need of AD for ambulation. met 2. patient to ambulate with reciprocal gait mechanics with equal stance time and weight bearing 3. patient to ambulate up and down steps with reciprocal mechanics with 1 hand rail hold. met Target Visit 12 Progress Partially Met
--- NOTE | 2022-12-22 08:39 | PTOPDC ---
Assessment and note entered by JT File, PT Evaluation Information Assessment Status Discharge Diagnosis s/p L TKA Onset 10/18/22 Subjective Information patient reports he is walking pain free. he reports he is happier with the knee now. he reports he is over half way back to normal. he reports he did climb a ladder hand over hand and foot over foot this past week with a little extra effort. he reports the surgeon mentioned potentially doing a maniuplation of the L knee, but the patient would like to hold off at this time. Reported Pain Level Pain Score 0: Self Report Additional Pain Score Comments a little knee cap tenderness/pain Assessment PT Clinical Summary mr. hennessy presents to skilled PT services for his 18th skilled PT visit. he presents today with improvements in rom, strength, and gait mechanics since his last re-evaluation. he has met neraly all goals, except for goal of ambulation with equal stance time bilaterally, and full knee extension active mobility. however, at this time, patient was given education to continue with HEP independent on his own and follow up with MD as needed. patient will stop in prior to his next MD visit to look at his mobility, gait, and overall progress with HEP. Plan of Care PT Services Indicated Yes
== END 2022-12-22 11:52 | disposition home or self-care (01) ==
LOC: CHSPT 14:05
PROVIDERS: PCP Nurse Practitioner Family; Visit Provider Orthopaedic Surgery
DX: Z47.1 Aftercare following joint replacement surgery (principal); Z96.652 Presence of left artificial knee joint
CPT/HCPCS: 97014; 97016; 97110; 97150; 97161; 97530; G0283

== ENCOUNTER 2022-12-20 07:07 | Outpatient (CLI) | payer BC, SELFPAY ==
--- NOTE | ~2022-12-20 | XR_ITS ---
Left Knee Technique: AP, lateral, and sunrise views were obtained. Clinical History: Pain COMPARISON: 11/08/2022 Findings: No fracture or dislocation is seen. Left knee arthroplasty is unchanged. There is persisten t prepatellar soft tissue thickening. No joint effusion is seen. Impression: Persistent prepatellar soft tissue thickening/edema, nonspecific. Stable left knee arthroplasty. Reviewed, dictated and finalized at location . [employer] Impression: Persistent prepatellar soft tissue thickening/edema, nonspecific. Stable left knee arthroplasty.
== END 2022-12-20 07:08 | disposition home or self-care (01) ==
LOC: CHSIMG 07:10
PROVIDERS: PCP Nurse Practitioner Family; Visit Provider Orthopaedic Surgery
DX: M25.562 Pain in left knee (principal); M79.89 Other specified soft tissue disorders; Z96.652 Presence of left artificial knee joint
CPT/HCPCS: 73562

== ENCOUNTER 2023-02-28 07:45 | Outpatient (CLI) | payer BC, SELFPAY ==
--- NOTE | ~2023-02-28 | XR_ITS ---
Left Knee Technique: AP, lateral, and sunrise views were obtained. Clinical History: Arthroplasty COMPARISON: 12/20/2022 Findings: No fracture or dislocation is seen. Left knee arthroplasty in place, unchanged, without nicole dence of complication.. Soft tissues are unremarkable. No joint effusion is seen. Impression: No acute abnormality. Left knee arthroplasty in place. Reviewed, dictated and finalized at location M. 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 Left knee arthroplasty in place.
== END 2023-02-28 07:46 | disposition home or self-care (01) ==
LOC: CHSIMG 07:48
PROVIDERS: PCP Nurse Practitioner Family; Visit Provider Orthopaedic Surgery
DX: Z96.652 Presence of left artificial knee joint (principal)
CPT/HCPCS: 73562

== ENCOUNTER 2023-04-26 00:26 | Day surgery (SDC) | payer BC, SELFPAY ==
[2023-04-19 12:31] VITALS: BMI 28.1
--- NOTE | 2023-04-24 08:33 | SUR.PREOP ---
Patient called regarding upcoming procedure. Reviewed preop instructions, appointment times, and procedure prep.
[2023-04-26 06:45] VITALS: BP 153/76; PULSE 54; RESP 18; TEMP 36.4; O2SAT 100; BMI 26.9
[2023-04-26] MEDS: LACTATED RINGERS 1,000 ML 150 ML IV CONT (06:49)
[2023-04-26 07:00] LABS: Glucose Point of Care 114 mg/dl (65-105)
--- NOTE | 2023-04-26 07:25 | WPDANESEPPF ---
Anes - Initial Pre Proc Eval Procedure: Operation Date: 04/26/23 08:00 Proposed Procedures p Colonoscopy - Lex Griffiths MD Date/Time: 04/26/23 07:25 Surgeon: Lex Griffiths MD Pre Op Diagnosis: History colon polyps Patient Data Age: 62 Gender: M Height: 1.7 m Weight: 78 kg Last Vital Signs Temp 97.5 F L 04/26/23 06:45 Pulse 54 L 04/26/23 06:45 Resp 18 04/26/23 06:45 BP 153/76 H 04/26/23 06:45 Pulse Ox 100 04/26/23 06:45 O2 Del Method Room Air 04/26/23 06:45 Allergies Allergy/AdvReac Type Severity Reaction Status Date / Time No Known Allergies Allergy Verified 04/26/23 06:43 Home Medications Medication Instructions Recorded Confirmed Type lisinopril 20 mg tablet 20 mg PO QAM #90 tabs 02/28/23 04/19/23 Rx metformin 500 mg tablet 500 mg PO HS #90 tabs 02/28/23 04/19/23 Rx misoprostol 200 mcg tablet 200 mcg PO DAILY PRN Stomach Upset 02/28/23 04/19/23 History montelukast 10 mg tablet 10 mg PO QAM #90 tabs 02/28/23 04/19/23 Rx sildenafil 50 mg tablet See Rx Instructions .Route 02/28/23 04/19/23 Rx .COMPLEX #30 tabs Adults Multivitamin 1 tab-cap PO DAILY 04/19/23 04/19/23 History ibuprofen 200 mg capsule 200 mg PO Q6H PRN Pain 04/19/23 04/19/23 History indomethacin 50 mg capsule 50 mg PO 3XW PRN Pain 04/19/23 04/19/23 History turmeric 400 mg capsule 400 mg PO DAILY 04/19/23 04/19/23 History Laboratory Tests 04/26/23 06:57 POC Capillary Glucose 114 H mg/dl (65-105) Patient hx anesthesia problems: none Family hx anesthesia problems: none Results Review: All pre-operative results and documents have been reviewed as part of the pre-operative evaluation. [facility] Past Medical History Medical History Arthritis Colon polyps Erectile dysfunction Hypertension Need for influenza vaccination Swelling of left hand Type 2 diabetes mellitus without complications Surgical History Surgical History H/O knee surgery H/O prior ablation treatment History of back surgery Status post total left knee replacement DOS 10/18/22 Social History Social History Smoking status: Never smoker Smokeless tobacco user: chewing tobacco Second hand tobacco smoke exposure: No Additional smoking assessment comments: QUIT CHEWING TOBACCO 08/25/22, CHEWED FOR 20 YEARS PRIOR Alcohol intake: current Drinks per week: 12 Alcohol use details: BEERS Substance use: never Substance use type: does not use Lack of Transportation: No Lack of Food: Never True Current Housing: I Have Housing Concerned About Future Housing: No Difficulty Paying Gas/Electric Bills: No Difficulty Paying for Meds: No Currently Unemployed: No Education: High School Diploma/GED Difficulty w/ Childcare or Family Care: No Living arrangements: with family Additional living arrangements comments: [employer] 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 Informed Consent: The patient's anesthetic plan and its attendant risks and benefits were discussed with the patient/family/POA. Questions were solicited and answers provided to the satisfaction of the patient/family/POA.
--- NOTE | 2023-04-26 07:43 | PM.HPGS ---
History of Present Illness History of Present Illness Consent: Risks, benefits, and alternatives have been discussed and questions answered. Patient agrees to proceed with procedure. Chief complaint: History colon polyps Narrative: Seth Johnson is a 62 year old male with colon polyp 8 years ago Review of Systems Review of Systems: All systems reviewed & are unremarkable except as noted in HPI and below PMFSH Past Medical History Medical History Arthritis Colon polyps Erectile dysfunction Hypertension Need for influenza vaccination Swelling of left hand Type 2 diabetes mellitus without complications Surgical History Surgical History H/O knee surgery H/O prior ablation treatment History of back surgery Status post total left knee replacement DOS 10/18/22 Social History Social History Smoking status: Never smoker Smokeless tobacco user: chewing tobacco Second hand tobacco smoke exposure: No Additional smoking assessment comments: QUIT CHEWING TOBACCO 08/25/22, CHEWED FOR 20 YEARS PRIOR Alcohol intake: current Drinks per week: 12 Alcohol use details: BEERS Substance use: never Substance use type: does not use Lack of Transportation: No Lack of Food: Never True Current Housing: I Have Housing Concerned About Future Housing: No Difficulty Paying Gas/Electric Bills: No Difficulty Paying for Meds: No Currently Unemployed: No Education: High School Diploma/GED Difficulty w/ Childcare or Family Care: No Living arrangements: with family Additional living arrangements comments: [employer] 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: No Meds Home Medications and Allergies Home Medications Medication Instructions Recorded Confirmed Type lisinopril 20 mg tablet 20 mg PO QAM #90 tabs 02/28/23 04/19/23 Rx metformin 500 mg tablet 500 mg PO HS #90 tabs 02/28/23 04/19/23 Rx misoprostol 200 mcg tablet 200 mcg PO DAILY PRN Stomach Upset 02/28/23 04/19/23 History montelukast 10 mg tablet 10 mg PO QAM #90 tabs 02/28/23 04/19/23 Rx sildenafil 50 mg tablet See Rx Instructions .Route 02/28/23 04/19/23 Rx .COMPLEX #30 tabs Adults Multivitamin 1 tab-cap PO DAILY 04/19/23 04/19/23 History ibuprofen 200 mg capsule 200 mg PO Q6H PRN Pain 04/19/23 04/19/23 History indomethacin 50 mg capsule 50 mg PO 3XW PRN Pain 04/19/23 04/19/23 History turmeric 400 mg capsule 400 mg PO DAILY 04/19/23 04/19/23 History Allergies Allergy/AdvReac Type Severity Reaction Status Date / Time No Known Allergies Allergy Verified 04/26/23 06:43 Vital Signs Vital Signs - 24 hr 04/26/23 06:45 Temperature 97.5 F L Pulse Rate 54 L Respiratory Rate 18 Blood Pressure 153/76 H Pulse Oximetry 100 Oxygen Delivery Room Air Exam Const: General: comfortable and no acute distress HENMT: Face/Nose/Sinus: Normal nares present Eyes: General: appearance normal, both eyes and all related structures Neck: Neck: no JVD Resp: Auscultation: clear to auscultation bilaterally Cardio: Rate: regular rate Rhythm: regular rhythm GI: Inspection: non-distended GI Palp: Yes Soft to palpation Skin: General skin exam: normal color Neuro: General: gait normal Speech: normal speech Extrem: General: normal to inspection Psych: Mental Status: mental status grossly normal Assessment and Plan Assessment and plan (1) Colon polyps: Code(s): K63.5 - Polyp of colon Status: Acute Assessment and Plan: colonoscopy
[2023-04-26 08:04] VITALS: BP 107/59; PULSE 53; RESP 20; O2SAT 97
[2023-04-26 08:14] VITALS: BP 124/64; PULSE 59; RESP 19; O2SAT 98
[2023-04-26 08:24] VITALS: BP 149/70; PULSE 56; RESP 20; O2SAT 100
== END 2023-04-26 08:33 | disposition home or self-care (01) ==
PROVIDERS: PCP Nurse Practitioner Family; Visit Provider Internal Medicine Gastroenterology
PROC: 0DJD8ZZ Inspection of Lower Intestinal Tract, Via Natural or Artificial Opening Endoscopic (ICD-10-PCS; CPT 45378; principal; 2023-04-26 08:00)
DX: Z12.11 Encounter for screening for malignant neoplasm of colon (principal); K57.30 Diverticulosis of large intestine without perforation or abscess without bleeding; K64.8 Other hemorrhoids; Z86.010 Personal history of colon polyps; I10 Essential (primary) hypertension; E11.9 Type 2 diabetes mellitus without complications; Z79.84 Long term (current) use of oral hypoglycemic drugs; Z87.891 Personal history of nicotine dependence
CPT/HCPCS: 45378; 82948; J2704; J7120

== ENCOUNTER 2023-11-07 07:41 | Outpatient (CLI) | payer BC, SELFPAY ==
--- NOTE | ~2023-11-07 | XR_ITS ---
Left Knee Technique: AP, lateral, and sunrise views were obtained. Clinical History: Pain COMPARISON: 02/28/2023 Findings: No fracture or dislocation is seen. Left knee arthroplasty in place, unchanged. Minimal pat ellar spurring present.. Probable small joint effusion is seen. Impression: Stable left knee arthroplasty. Probable small joint effusion. Reviewed, dictated and finalized at location . Impression: Stable left knee arthroplasty. Probable small joint effusion.
== END 2023-11-07 07:42 | disposition home or self-care (01) ==
LOC: CHSLAB 07:43
PROVIDERS: PCP Nurse Practitioner Family; Visit Provider Orthopaedic Surgery
DX: M25.562 Pain in left knee (principal); Z96.652 Presence of left artificial knee joint
CPT/HCPCS: 73562

== ENCOUNTER 2024-03-18 07:46 | Outpatient (RCR) | payer BC, SELFPAY ==
--- NOTE | 2024-03-18 08:34 | PTOPEVAL1 ---
Assessment and note entered by Charlie Fleming Evaluation Information Assessment Status Evaluation ICD-10 Condition Codes (PT) Pain in right shoulder M25.511,Pain in left hip M25.552,Pain in right knee M25.561,Pain in left knee M25.562 Onset 08/14/23 Subjective Information Pt. reports that he started noticing pain and tingling in the left leg about 6 months ago. He reports that he has also developed recent pain into the right shoulder. He states that pain is worsening in the left leg. He has hx of past back surgery and right knee joint replacement. He states that he is very active around the home. He states that he enjoys chopping wood. He is currently retired. He reports that he has no problem with sleeping at night due to pain. He reports that he cannot currently stand longer than 30 minute before having to sit due to pain in the legs and back. He reports that the developed shoulder pain makes reaching behind his back difficult. He reports having difficulty with wiping and going to the bathroom. He reports that he is left hand dominant. He reports that his goal is to reduce his pain and be able to walk for a long distane. Reported Pain Level Pain Score 5,5: Self Report Assessment PT Clinical Summary Pt. is a 63 year old male who enters the clinic with right shoulder pain and left leg pain. He presents with indication of rotator cuff syndrome at the right shoulder and indication of lumbar radiculopathy resulting in pain in the left l.e. He currently presents with right upper extremity weakness, impaired postural awareness, impaired gait, functional decline, and proximal l.e. weakness. Continued skilled PT is indicated in order to improve these areas to allow the pt. to be able to complete all IADL's with improved comfort and efficiency. Plan of Care Interventions Electrical Stimulation,Hot Pack/Cold Pack,Manual Therapy,Mechanical Traction,Neuro Re-education, Patient/Caregiver Education,Therapeutic Activities ,Therapeutic Exercise PT Services Indicated Yes Treatment Frequency and 2x/week x 12 visits Duration These treatments will address the objective and functional deficits as defined above. The patient will be advanced safely and appropriately in order for the patient to progress towards his/her prior level of function. Additional exercises will be introduced and as well as a comprehensive home exercise program upon discharge, if needed, ?to ensure carryover of functional gains achieved in the clinic. This treatment plan has been reviewed and agreement upon by the patient.
--- NOTE | 2024-03-18 08:35 | OPREHPOC ---
Outpatient Therapy Plan of Care This is a Multidisciplinary Plan of Care that may contain components documented by all disciplines (PT, OT, and ST.) PT Problem 1 PT Problem #1 Knowledge Deficit PT Goal 1 Goal / Goal Update Independent with a HEP addressing shoulder mobility and core strength Target Visit 2 PT Problem 2 PT Problem #2 Impaired Strength PT Goal 1 Goal / Goal Update Pt. will present with 4/5 right shoulder flexion, abduction and ER. Pt. will improve hip abduction strength to 4+/5 bilateral Pt. will demonstrate ability to lift 5# overhead with the right u.e. in repetition. Target Visit 10 PT Problem 3 PT Problem #3 Impaired Functional Mobility PT Goal 1 Goal / Goal Update Pt. will report being able to stand for duration of 1 hour without rest and pain levels at 3/10 at worst Pt. will demonstrate safe mechanics with floor to waist lifting with 15-20# object. Pt. will present with 20% improvement in both Quick DASH and LEFS indicating significant functional improvement Target Visit 12
--- NOTE | 2024-04-15 08:00 | PTOPDC ---
Assessment and note entered by Charlie Fleming Evaluation Information Assessment Status Discharge ICD-10 Condition Codes (PT) Pain in right shoulder M25.511,Pain in left hip M25.552,Pain in right knee M25.561,Pain in left knee M25.562 Onset 08/14/23 Subjective Information Pt. reports that his right shoulder is feeling great. He reports that he will have twinge of pain with heavy lifting but very rare. He is more conscious about his shoulder and making sure he doesn't aggravate the right shoulder. He reports that despite stretching and core exercise he is still having trouble with standing due to back pain. He reports that pain is mostly in the left buttock. He states that he cannot stand for more than 20 minutes without pain increase and having to sit. He reports he is pleased with the shoulder progress, but is going to contact his doctor regarding remaining back and buttock pain. Reported Pain Level Pain Score 5,0: Self Report Assessment PT Clinical Summary Pt. has met all goals related to the right shoulder. He continues to have consistent back and left buttock pain limiting his ability to stand. He has a comprehensive HEP focused on core stability and proximal u.e. strength. He is encouraged to return to his doctor regarding the remaining back pain and discuss the possibility of injections. He will be discharged from our care at this time. Plan of Care PT Services Indicated No
== END 2024-04-15 20:00 | disposition home or self-care (01) ==
LOC: CHSPT 07:46
PROVIDERS: PCP Nurse Practitioner Family; Visit Provider Nurse Practitioner Family
DX: M25.552 Pain in left hip (principal); M25.561 Pain in right knee; M25.562 Pain in left knee; M25.511 Pain in right shoulder
CPT/HCPCS: 97110; 97112; 97140; 97161

== ENCOUNTER 2024-04-22 11:42 | Outpatient (CLI) | payer BC, SELFPAY ==
--- NOTE | ~2024-04-22 | XR_ITS ---
EXAM: XR lumbar spine min 4V DATE: 04/22/2024 12:10 HISTORY: M54.50 - Low back pain, unspecified . COMPARISON: None available. FINDINGS: 5 nonrib-bearing lumbar-type vertebral bodies. Pedicles intact. 3 mm anterolisthesis at L3 -4. 2 mm retrolisthesis at L4-5. 6 mm anterolisthesis at L5-S1. Vertebral body heights preserved. Dis c space narrowing and marginal osteophytosis at all lumbar levels, severe at L4-5 and L5-S1 and moder ate at the remaining levels. Facet hypertrophy and sclerosis at all lumbar levels, moderate in the mi d and lower lumbar spine. Bilateral pars defects at L5. Minimal atherosclerotic aortic calcifications without evident aneurysm. No fracture or dislocation. IMPRESSION: Grade 1 listheses at L3-4, L4-5, and L5-S1, worse at L5-S1 secondary to bilateral L5 pars defects. Multilevel moderate-severe lumbar degenerative disc disease. Moderate mid and lower lumbar facet arthropathy. Reviewed, dictated and finalized at location K. IMPRESSION: Grade 1 listheses at L3-4, L4-5, and L5-S1, worse at L5-S1 secondar y to bilateral L5 pars defects. Multilevel moderate-severe lumbar degenerative disc disease. Moderate mid and lower lumbar facet arthropathy.
--- NOTE | ~2024-04-22 | XR_ITS ---
AP and lateral views of the left hip Clinical history: Pain Findings: No acute fracture or dislocation is seen. Osseous alignment is anatomic. Left hip joint is intact. Soft tissues are unremarkable. Impression: No significant abnormality is seen. Reviewed, dictated and finalized at location M. Impression: No significant abnormality is seen.
--- NOTE | ~2024-04-22 | XR_ITS ---
Clinical Indication: Contact PA and lateral views of the chest: Comparison: None Findings: The lungs are clear, without evidence of focal consolidation or pleural effusion. Cardiome diastinal silhouette is within normal limits. Bones and soft tissues are unremarkable. Impression: Normal chest. Reviewed, dictated and finalized at location . Impression: Normal chest.
--- OUTSIDE RECORDS SUMMARY | 2024-04-22 13:50 | XMS_ITS | Patient Health Summary ---
Author Organization [facility] Borqs Address [address] [place] [address] Care Team Providers Care Change Management Specialist Name Role Phone Saira Bansal MECHANIC FOREMAN-GRADE CHECKER Primary Care Provider Note from [facility],non-owned Affiliates and Associated Physician Practices is amultiple site organization consisting of ambulatory clinics and hospital sitesin [place], [place], [place] and [place]. This disclosure is being madepursuant to the Care Everywhere program and may not contain all information available regarding this patient. Last updated 17.[facility] Allergies No known active allergies Medications * Be aware that medications may not be up to date on this document. Alwaysverify current medications with the patient. * indomethacin (INDOCIN) 50 MG capsule(Started 02/23/2016) Take 1 Cap by mouth at bedtime 11 refills left * miSOPROStol (CYTOTEC) 200 MCG tablet(Started 02/09/2016) Take 1 Tab by mouth 2 times daily 3 refills left * metFORMIN (GLUCOPHAGE) 500 MG tablet(Started 02/03/2020) Take 1 (one) tablet by mouth once daily * lisinopril (PRINIVIL; ZESTRIL) 20 MG tablet(Started 10/03/2019) Take 20 mg by mouth once daily * sildenafil (VIAGRA) 50 MG tablet(Started 04/26/2021) TAKE 1 TABLET BY MOUTH DAILY NEEDED 30 MINUTES TO 4 HOURS BEFORE ACTIVITY * montelukast (Singulair) 10 MG tablet Take 1 (one) tablet by mouth at bedtime Active Problems Problem Noted Date Diagnosed Date Essential hypertension 10/22/2019 S/P ablation of atrial fibrillation 09/13/2018 Pre-diabetes 02/13/2017 Microscopic hematuria 02/13/2017 Low HDL (under 40) 02/13/2017 Exposure to environmental toxic substances 02/13 Annual Physical Exam - [facility] Tobacco use Periodontal disease Osteoarthritis Eczema Resolved Problems Problem Noted Date Diagnosed Date Resolved Date PSVT (paroxysmal supraventri cular tachycardia) 06/28/2018 03/25/2020 PVC's (premature ventricular contractions) 02/13/2017 03/25/2020 Paroxysmal atrial fibrillation 08/14/2015 03/25/2020 Hepatitis B Titer - 03/07/08 03/22/2016 Varicella Antibodies 017 Hepatitis C Antibodies - 03/07/08 03/22/2016 Encounter for routine chest x-ray 03/22/2016 Immunizations * INFLUENZA VACCINE, TRIV. (AFLURIA, FLUZONE TRIVALENT; 6MO+) (IIV3)(Given 11/27/2013, 11/27/2012, 12/10/2010, 11/16/2009) * Covid Njuice primary monovalent 12+ yr 0.3mL Purple cap(Given 03/25/2020, 03/07/2020) * HEP A VACCINE, ADULT(Given 10/09/2008, 10/01/2008, 04/01/2008) * HEP B VACCINE ADOL/ADULT 2 DOSE(Given 10/09/2008, 10/01/2008, 04/01/2008) * INFLUENZA VACCINE, QUADR. (FLUZONE; FLULAVAL; FLUARIX; AFLURIA QUADRIVALENT; 6MO+), 0.5 ML (IIV4)(Given 12/09/2021, 12/02/2019, 11/12/2018, 11/23/2016, 11/23/2015, 11/28/2014) * Influenza Pf Intradermal (ADULT)(Given 12/06/2011) * TDAP (7yrs+)(Given 04/23/2019) * TETANUS(Given 02/13/2005) Social History Tobacco Use Types Packs/Day Years Used Date Smoking Tobacco: Never Smokeless Tobacco: Current Chew Tobacco Cessation:Ready to Q uit: Yes; Counseling Given: Yes Comments:occasional oral tobacco - some about every three days Alcohol Use Standard Drinks/Week Comments Yes 0 (1 standard drink = 0.6 oz pur e alcohol) 12-20 per week Sex and Gender Information Value Date Recorded Sex Assigned at Not on file Gender Identity Not on file Sexual Orientation Not on file Last Filed Vital Signs Vital Sign Reading Time Taken Comments Blood Pressure 128/86 05/19/2023 9:05 AM CDT Pulse 65 05/19/2023 9:05 AM CDT Temperature 36.4 C (97.5 F) 12/02/2019 3:28 PM CDT Respiratory Rate 16 05/19/2023 9:05 AM CDT Oxygen Saturation 98% 05/19/2023 9:05 AM CDT Inhaled Oxygen Concentration - - Weight 82.1 kg (181 lb) 05/19/2023 9:05 AM CDT Height 170.2 cm (5' 7 ) 05/19/2023 9:05 AM CDT Body Mass Index 28.35 05/19/2023 9:05 AM CDT Procedures * AUDIOLOGY(Performed 05/19/2023) * CARDIAC STRESS TEST ORDER(Performed 05/19/2023) * PULMONARY/RESPIRATORY REPORT ORDER(Performed 05/19/2023) * APOLIPOPROTEIN B(Performed 04/20/2023) Performed for Annual Physical Exam [facility] * LIPOPROTEIN ASSOCIATED PHOSPHOLIPID A2(Performed 04/20/2023) Performed for Annual Physical Exam [facility] * QUANTIFERON TB-GOLD(Performed 04/20/2023) Performed for Annual Physical Exam [facility] * TSH(Performed 04/20/2023) Performed for Annual Physical Exam [facility] * VITAMIN D 25-HYDROXY(Performed 04/20/2023) Performed for Annual Physical Exam [facility] * PROSTATE SPECIFIC ANTIGEN SCREEN(Performed 04/20/2023) Performed for Annual Physical Exam [facility] * URINALYSIS REFLEX TO MICROSCOPIC NO CULTURE(Performed 04/20/2023) Performed for Annual Physical Exam [facility] * CBC W AUTO DIFFERENTIAL(Performed 04/20/2023) Performed for Annual Physical Exam [facility] * LIPID PROFILE W TCHOL/HDL(Performed 04/20/2023) Performed for Annual Physical Exam [facility] * COMPREHENSIVE METABOLIC PANEL(Performed 04/20/2023) Performed for Annual Physical Exam [facility] * HEMOGLOBIN A1C(Performed 04/20/2023) Performed for Annual Physical Exam [facility] * AUDIOLOGY(Performed 05/25/2022) * CARDIAC TEST(Performed 05/25/2022) * VISUAL ACUITY SCREENING(Performed 05/25/2022) * PULMONARY TEST (NOT PFT OR SLEEP STUDY)(Performed 05/25/2022) * HEMOGLOBIN A1C(Performed 05/19/2022) Performed for Annual Physical Exam [facility] * VITAMIN D 25-HYDROXY(Performed 05/19/2022) Performed for Annual Physical Exam [facility] * URINALYSIS REFLEX TO MICROSCOPIC NO CULTURE(Performed 05/19/2022) Performed for Annual Physical Exam [facility] * TSH(Performed 05/19/2022) Performed for Annual Physical [facility] * QUANTIFERON TB-GOLD(Performed 05/19/2022) Performed for Annual Physical Exam [facility] * PROSTATE SPECIFIC ANTIGEN SCREEN(Performed 05/19/2022) Performed for Annual Physical [facility] * LIPOPROTEIN ASSOCIATED PHOSPHOLIPID A2(Performed 05/19/2022) Performed for Annual Physical Exam [facility] * LIPID PROFILE W TCHOL/HDL(Performed 05/19/2022) Performed for Annual Physical [facility] * COMPREHENSIVE METABOLIC PANEL(Performed 05/19/2022) Performed for [facility] Physical [facility] * CBC W AUTO DIFFERENTIAL(Performed 05/19/2022) Performed for Annual Physical [facility] * APOLIPOPROTEIN B(Performed 05/19/2022) Performed for Annual Physical [facility] * AUDIOLOGY(Performed 05/25/2021) * CARDIAC TEST(Performed 05/25/2021) * VISUAL ACUITY SCREENING(Performed 05/25/2021) * PULMONARY TEST (NOT PFT OR SLEEP STUDY)(Performed 05/25/2021) * HEMOGLOBIN A1C(Performed 05/06/2021) Performed for Annual Physical [facility] * PROSTATE SPECIFIC ANTIGEN SCREEN(Performed 05/06/2021) Performed for Annual Physical Exam [facility] * APOLIPOPROTEIN B(Performed 05/06/2021) Performed for Annual Physical Exam [facility] * LIPOPROTEIN ASSOCIATED PHOSPHOLIPID A2(Performed 05/06/2021) Performed for Annual Physical Exam [facility] * TSH(Performed 05/06/2021) Performed for Annual Physical Exam [facility] * VITAMIN D 25-HYDROXY(Performed 05/06/2021) Performed for Annual Physical Exam [facility] * QUANTIFERON TB-GOLD(Performed 05/06/2021) Performed for Annual Physical Exam [facility] * LIPID PROFILE W TCHOL/HDL(Performed 05/06/2021) Performed for Annual Physical Exam [facility] * URINALYSIS REFLEX TO MICROSCOPIC NO CULTURE(Performed 05/06/2021) Performed for Annual Physical Exam [facility] * CBC W AUTO DIFFERENTIAL(Performed 05/06/2021) Performed for Annual Physical Exam [facility] * COMPREHENSIVE METABOLIC PANEL(Performed 05/06/2021) Performed for Annual Physical Exam [facility] * AUDIOLOGY(Performed 03/26/2020) * CARDIAC STRESS TEST ORDER(Performed 03/26/2020) * VISUAL ACUITY SCREENING(Performed 03/26/2020) * HEMOGLOBIN A1C(Performed 03/04/2020) Performed for Annual Physical Exam [facility] * APOLIPOPROTEIN B(Performed 03/04/2020) Performed for Annual Physical Exam [facility] * LIPOPROTEIN ASSOCIATED PHOSPHOLIPID A2(Performed 03/04/2020) Performed for Annual Physical Exam [facility] * TSH(Performed 03/04/2020) Performed for Annual Physical Exam [facility] * VITAMIN D 25-HYDROXY(Performed 03/04/2020) Performed for Annual Physical Exam [facility] * QUANTIFERON TB-GOLD(Performed 03/04/2020) Performed for Annual Physical Exam [facility] * PROSTATE SPECIFIC ANTIGEN SCREEN(Performed 03/04/2020) Performed for Annual Physical Exam [facility] * URINALYSIS REFLEX TO MICROSCOPIC NO CULTURE(Performed 03/04/2020) Performed for Annual Physical Exam [facility] * CBC W AUTO DIFFERENTIAL(Performed 03/04/2020) Performed for Annual Physical Exam [facility] * LIPID PROFILE W TCHOL/HDL(Performed 03/04/2020) Performed for Annual Physical Exam [facility] * COMPREHENSIVE METABOLIC PANEL(Performed 03/04/2020) Performed for Annual Physical Exam [facility] * COMPREHENSIVE METABOLIC PANEL(Performed 04/23/2019) * HEAVY METALS URINE RANDOM PANEL(Performed 04/23/2019) Performed for Annual Physical Exam [facility] * CARDIAC TEST(Performed 04/23/2019) * PULMONARY TEST (NOT PFT OR SLEEP STUDY)(Performed 04/23/2019) * BLOOD TYPE ABO+ RH PANEL(Performed 02/18/2019) Performed for Annual Physical Exam [facility] * TESTOSTERONE TOTAL(Performed 02/18/2019) Performed for Annual Physical Exam [facility] * PROSTATE SPECIFIC ANTIGEN SCREEN(Performed 02/18/2019) Performed for Annual Physical Exam [facility] * HEPATITIS C ANTIBODY(Performed 02/18/2019) Performed for Annual Physical Exam [facility] * APOLIPOPROTEIN B(Performed 02/18/2019) Performed for Annual Physical [facility] * LIPOPROTEIN ASSOCIATED PHOSPHOLIPID A2(Performed 02/18/2019) Performed for Annual Physical Exam [facility] * TSH(Performed 02/18/2019) Performed for Annual Physical Exam [facility] * HEMOGLOBIN A1C(Performed 02/18/2019) Performed for Annual Physical Exam [facility] * URINALYSIS REFLEX TO MICROSCOPIC NO CULTURE(Performed 02/18/2019) Performed for Annual Physical [facility] * CBC W AUTO DIFFERENTIAL(Performed 02/18/2019) Performed for [facility] Physical [facility] * LIPID PROFILE W TCHOL/HDL(Performed 02/18/2019) Performed for Annual Physical [facility] * VITAMIN D 25-HYDROXY(Performed 02/18/2019) Performed for Annual Physical [facility] * QUANTIFERON TB-GOLD(Performed 02/18/2019) Performed for Annual Physical Exam [facility] * XR CHEST 2VW(Performed 06/28/2018) Performed for Annual Physical Exam [facility] * AUDIOLOGY(Performed 06/28/2018) * CARDIAC TEST(Performed 06/28/2018) * VISUAL ACUITY SCREENING(Performed 06/28/2018) * PULMONARY TEST (NOT PFT OR SLEEP STUDY)(Performed 06/28/2018) * LIPOPROTEIN A(Performed 06/06/2018) Performed for Annual Physical Exam [facility] * HEMOGLOBIN A1C(Performed 06/06/2018) Performed for Annual Physical Exam [facility] * APOLIPOPROTEIN B(Performed 06/06/2018) Performed for Annual Physical Exam [facility] * LIPOPROTEIN ASSOCIATED PHOSPHOLIPID A2(Performed 06/06/2018) Performed for Annual Physical Exam [facility] * VITAMIN D 25-HYDROXY(Performed 06/06/2018) Performed for Annual Physical Exam [facility] * QUANTIFERON TB-GOLD(Performed 06/06/2018) Performed for Annual Physical Exam [facility] * PROSTATE SPECIFIC ANTIGEN SCREEN(Performed 06/06/2018) Performed for Annual Physical Exam [facility] * URINALYSIS REFLEX TO MICROSCOPIC NO CULTURE(Performed 06/06/2018) Performed for Annual Physical Exam [facility] * CBC W AUTO DIFFERENTIAL(Performed 06/06/2018) Performed for [facility] Physical [facility] * LIPID PROFILE W TCHOL/HDL(Performed 06/06/2018) Performed for Annual Physical Exam [facility] * COMPREHENSIVE METABOLIC PANEL(Performed 06/06/2018) Performed for Annual Physical [facility] * AUDIOLOGY/TYMPANOMETRY ORDER(Performed 06/20/2017) * HEMOGLOBIN A1C - POINT OF CARE (AMB)(Performed 06/20/2017) Performed for Pre-diabetes * CARDIAC STRESS TEST ORDER(Performed 06/20/2017) * PULMONARY/RESPIRATORY REPORT ORDER(Performed 06/20/2017) * VISUAL ACUITY SCREENING(Performed 06/20/2017) * LAB RESULTS ORDER(Performed 06/20/2017) * QUANTIFERON IN TUBE REFLEXED(Performed 05/29/2017) Performed for Annual physical exam * URINALYSIS MICROSCOPIC ONLY REFLEXED(Performed 05/29/2017) Performed for Annual physical exam * QUANTIFERON TB-GOLD(Performed 05/29/2017) Performed for Annual Physical Exam [facility] * MMR IMMUNITY PROFILE(Performed 05/29/2017) Performed for Annual Physical Exam [facility] * VITAMIN D 25-HYDROXY(Performed 05/29/2017) Performed for Annual Physical Exam [facility] * PROSTATE SPECIFIC ANTIGEN SCREEN(Performed 05/29/2017) Performed for Annual Physical Exam [facility] * URINALYSIS REFLEX TO MICROSCOPIC NO CULTURE(Performed 05/29/2017) Performed for Annual Physical Exam [facility] * CBC W AUTO DIFFERENTIAL(Performed 05/29/2017) Performed for Annual Physical Exam [facility] * LIPID PROFILE W TCHOL/HDL(Performed 05/29/2017) Performed for Annual Physical Exam [facility] * COMPREHENSIVE METABOLIC PANEL(Performed 05/29/2017) Performed for Annual Physical Exam [facility] * QUANTIFERON IN TUBE REFLEXED(Performed 03/22/2016) Performed for Annual physical exam * QUANTIFERON TB-GOLD(Performed 03/22/2016) Performed for Annual Physical Exam [facility] * PROSTATE SPECIFIC ANTIGEN SCREEN(Performed 03/22/2016) Performed for Annual Physical Exam [facility] * URINALYSIS REFLEX TO MICROSCOPIC NO CULTURE(Performed 03/22/2016) Performed for Annual Physical Exam [facility] * CBC W AUTO DIFFERENTIAL(Performed 03/22/2016) Performed for Annual Physical Exam [facility] * LIPID PROFILE W TCHOL/HDL(Performed 03/22/2016) Performed for Annual Physical Exam [facility] * COMPREHENSIVE METABOLIC PANEL(Performed 03/22/2016) Performed for Annual Physical Exam [facility] * AUDIOLOGY/TYMPANOMETRY ORDER(Performed 03/22/2016) * CARDIAC STRESS TEST ORDER(Performed 03/22/2016) * PULMONARY/RESPIRATORY REPORT ORDER(Performed 03/22/2016) * VISUAL ACUITY SCREENING(Performed 03/22/2016) * CARDIAC STRESS TEST ORDER(Performed 04/15/2015) * URINALYSIS REFLEX TO MICROSCOPIC NO CULTURE(Performed 04/08/2015) * PROSTATE SPECIFIC ANTIGEN SCREEN(Performed 04/08/2015) Performed for Annual Physical Exam [facility] * CBC W AUTO DIFFERENTIAL(Performed 04/08/2015) Performed for Annual Physical Exam [facility] * LIPID PROFILE W TCHOL/HDL(Performed 04/08/2015) Performed for Annual Physical Exam [facility] * COMPREHENSIVE METABOLIC PANEL(Performed 04/08/2015) Performed for Annual Physical Exam [facility] * PROSTATE SPECIFIC ANTIGEN SCREEN(Performed 03/20/2014) * LIPID PROFILE W TCHOL/HDL(Performed 03/20/2014) * URINALYSIS NO MICROSCOPIC NO CULTURE(Performed 03/20/2014) * COMPREHENSIVE METABOLIC PANEL(Performed 03/20/2014) * CBC W AUTO DIFFERENTIAL(Performed 03/20/2014) * XR FINGER(S) LEFT(Performed 04/05/2013) Performed for Pain in limb * XR CHEST 2VW(Performed 03/19/2013) Performed for Annual Physical Exam - [facility] * PROSTATE SPECIFIC ANTIGEN SCREEN(Performed 02/21/2013) * LIPID PROFILE W TCHOL/HDL(Performed 02/21/2013) * URINALYSIS NO MICROSCOPIC NO CULTURE(Performed 02/21/2013) * COMPREHENSIVE METABOLIC PANEL(Performed 02/21/2013) * CBC W AUTO DIFFERENTIAL(Performed 02/21/2013) * CARDIAC STRESS TEST ORDER(Performed 03/16/2012) * PROSTATE SPECIFIC ANTIGEN SCREEN(Performed 02/27/2012) * LIPID PROFILE W TCHOL/HDL(Performed 02/27/2012) * URINALYSIS NO MICROSCOPIC NO CULTURE(Performed 02/27/2012) * COMPREHENSIVE METABOLIC PANEL(Performed 02/27/2012) * CBC W AUTO DIFFERENTIAL(Performed 02/27/2012) * CARDIAC STRESS TEST ORDER(Performed 03/17/2011) * PROSTATE SPECIFIC ANTIGEN SCREEN(Performed 03/04/2011) * LIPID PROFILE W TCHOL/HDL(Performed 03/04/2011) * URINALYSIS NO MICROSCOPIC NO CULTURE(Performed 03/04/2011) * COMPREHENSIVE METABOLIC PANEL(Performed 03/04/2011) * CBC W AUTO DIFFERENTIAL(Performed 03/04/2011) * CARDIAC STRESS TEST ORDER(Performed 02/19/2010) * CARDIAC STRESS TEST ORDER(Performed 02/19/2010) * LIPID PROFILE W TCHOL/HDL(Performed 02/09/2010) * URINALYSIS NO MICROSCOPIC NO CULTURE(Performed 02/09/2010) * COMPREHENSIVE METABOLIC PANEL(Performed 02/09/2010) * CBC W AUTO DIFFERENTIAL(Performed 02/09/2010) Results * AUDIOLOGY (05/19/2023) Lola Lr Jr., MD SCANNING ONLY * PULMONARY/RESPIRATORY REPORT ORDER (05/19/2023) Lola Lr Jr., MD RESPIRATORY THERAPY ORDERABLES * CARDIAC STRESS TEST ORDER (05/19/2023) Only the most recent of9 resultswithin the time period is included. Lola Lr Jr., MD CARDIAC SERVICES OR DERABLES * LIPOPROTEIN ASSOCIATED PHOSPHOLIPID A2 (04/20/2023 7:[address] SECURITY OFFICER) Only the most recent of6 resultswithin the time period is included. Pathologist [facility] PLA2 Activity 190 0 - 224 nmol/min/m L [facility] ACCOUNT BILL Comment: Reduced Risk <225 Increased Risk >224 FASTING Blood BLOOD SPECIMEN / Unknown 04/20/2023 7:[address] SECURITY OFFICER 04/20/2023 Narrative Resulting Agency Comment Lab Testing performed at: [facility] [address] [id number] Esther Monteiro MD LAB - CHEMISTRY MIYA JERRY [facility] ACCOUNT BILL [address] [place] [address] * (ABNORMAL) LIPID PROFILE W TCHOL/HDL (04/20/2023 7:[address] SECURITY OFFICER) Only the most recent of14 resultswithin the time period is included. Pathologist [facility] Cholesterol 179 100 - 199 mg/dL [facility] ACCOUNT BILL Triglycerides 82 0 - 149 mg/dL [facility] ACCOUNT BILL HDL Cholesterol 42 >39 mg/dL [facility] ACCOUNT BILL VLDL Calculated 15 5 - 40 mg/dL [facility] ACCOUNT BILL LDL Calculated 122(H) 0 - 99 mg/dL [facility] ACCOUNT BILL Comment NOT AVAILABLE [facility] ACCOUNT BILL Comment:Result cannot be obt ained for this observation. Cholesterol/HDL Ratio 4.3 0.0 - 5.0 ratio [facility] ACCOUNT BILL Comment: T. Chol/HDL Ratio Men Women 1/2 Avg.Risk 3.4 3.3 Avg.Risk 5.0 4.4 2X Avg.Risk 9.6 7.1 3X Avg.Risk 23.4 11.0 FASTING Blood BLOOD SPECIMEN / Unknown 04/20/2023 7:[address] SECURITY OFFICER 04/20/2023 Narrative Resulting Agency Comment Lab Testing performed at: [facility] [place] [address] [facility] [id number] Esther Monteiro MD LAB - CHEMISTRY MIYA JERRY Performing Organization Address [facility] Co de Phone Number [facility] ACCOUNT BILL [address] [place] [address] * (ABNORMAL) URINALYSIS REFLEX TO MICROSCOPIC NO CULTURE (04/20/2023 7:[address] SECURITY OFFICER) Only the most recent of9 resultswithin the time period is included. Specific Bland UA 1.017 1.005 - 1.030 [facility] ACCOUNT BILL pH UA 6.5 5.0 - 7.5 [facility] ACCOUNT BILL Color UA Yellow Yellow [facility] ACCOUNT BILL Appearance Clear Clear [facility] ACCOUNT BILL Leukocyte UA Negative Negative [facility] ACCOUNT BILL Protein UA Negative Negative/Tra ce [facility] ACCOUNT BILL Glucose UA Negative Negative [facility] ACCOUNT BILL Ketone UA 1+(A) Negative [facility] ACCOUNT BILL Occult Blood Urine Negative Negative [facility] ACCOUNT BILL Bilirubin UA Negative Negative [facility] ACCOUNT BILL Urobilinogen 0.2 0.2 - 1.0 mg/dL [facility] ACCOUNT BILL Nitrite UA Negative Negative [facility] ACCOUNT BILL Microscopic Examination Urine [facility] ACCOUNT BILL Comment: Microscopic not indicated and not performed. FASTING Urine URINE SPECIMEN OBTAINED BY CLEAN CATCH PROCEDURE / Unknown 04/20/2023 7:[address] SECURITY OFFICER 04/20/2023 Narrative Resulting Agency Comment Lab Testing performed at: [facility] [place] [address] [facility] [id number] Esther Monteiro MD LAB - URINALYSIS MADELIN DEE Performing Organization Address [facility] Co de Phone Number [facility] ACCOUNT BILL [address] [place] [address] * (ABNORMAL) APOLIPOPROTEIN B (04/20/2023 7:[address] SECURITY OFFICER) Only the most recent of6 resultswithin the time period is included. Pathologist [facility] Apolipoprotein B 98(H) <90 mg/dL [facility] ACCOUNT BILL Comment: Desirable < 90 Borderline High 90 - 99 High 100 - 130 Very High >130 ASCVD RISK THERAPEUTIC TARGET CATEGORY APO B (mg/dL) . Very High Risk <80 (if extreme risk <70) High Risk <90 Moderate Risk <90 FASTING Blood BLOOD SPECIMEN / Unknown 04/20/2023 7:[address] SECURITY OFFICER 04/20/2023 Narrative Resulting Agency Comment Lab Testing performed at: [facility] [address] [phone] Esther Monteiro MD LAB - CHEMISTRY MIYA JERRY Performing Organization Address [facility] Co de Phone Number [facility] ACCOUNT BILL [address] [place] [address] * (ABNORMAL) HEMOGLOBIN A1C (04/20/2023 7:[address] SECURITY OFFICER) Only the most recent of6 resultswithin the time period is included. Hemoglobin A1c 6.4(H) 4.8 - 5.6 % [facility] ACCOUNT BILL Comment: . Prediabetes: 5.7 - 6.4 Diabetes: >6.4 Glycemic control for adults with diabetes: <7.0 FASTING Blood BLOOD SPECIMEN / Unknown 04/20/2023 7:[address] SECURITY OFFICER 04/20/2023 Narrative Resulting Agency Comment Lab Testing performed at: [facility] [address] [facility] [id number] Esther Monteiro MD LAB - CHEMISTRY MIYA JERRY Performing Organization Address [facility] de Phone Number [facility] ACCOUNT BILL [address] [place] [address] * VITAMIN D 25-HYDROXY (04/20/2023 7:[address] SECURITY OFFICER) Only the most recent of7 resultswithin the time period is included. Vitamin D, 25 Hydroxy 38.1 30.0 - 100.0 ng/mL [facility] ACCOUNT BILL Comment: Vitamin D deficiency has been defined by the [place] of [employer] and an Endocrine Society practice guideline as a level of serum 25-OH vitamin D less than 20 ng/mL (1,2). The Endocrine Society went on to further define vitamin D insufficiency as a level between 21 and 29 ng/mL (2). 1. IOM ([place] of [employer]). 2010. Dietary reference intakes for calcium and D. [place]: The National Academies Press. 2. Nicole MF, Jose Ramon BURGOS, Uri MORTON, et al. Evaluation, treatment, and prevention of vitamin D deficiency: an Endocrine Society clinical practice guideline. JCEM. 2010; 96(7):1911-30. FASTING Blood BLOOD SPECIMEN / Unknown 04/20/2023 7:[address] SECURITY OFFICER 04/20/2023 Narrative Resulting Agency Comment Lab Testing performed at: [facility] [place] [address] [facility] [id number] Esther Monteiro MD LAB - CHEMISTRY MIYA JERRY [facility] ACCOUNT BILL [address] [place] [address] * QUANTIFERON TB-GOLD (04/20/2023 7:[address] SECURITY OFFICER) Only the most recent of8 resultswithin the time period is included. QuantiFERON Incubation Incubation performed. [facility] ACCOUNT BILL QuantiFERON Criteria [facility] ACCOUNT BILL Comment: QuantiFERON-TB Gold Plus is a qualitative indirect test for M tuberculosis infection (including disease) and is intended for use in conjunction with risk assessment, radiography, and other medical and diagnostic evaluations. The QuantiFERON-TB Gold Plus result is determined by subtracting the Nil value from either TB antigen (Ag) value. The Mitogen tube serves as a control for the test. QuantiFERON TB1 Ag Value 0.01 IU/mL [facility] ACCOUNT BILL QuantiFERON TB2 Ag Value 0.00 IU/mL [facility] ACCOUNT BILL QuantiFERON Nil Value 0.00 IU/mL [facility] ACCOUNT BILL QuantiFERON Mitogen Value 0.80 IU/mL [facility] ACCOUNT BILL QuantiFERON-TB Gold Plus Negative Negative [facility] ACCOUNT BILL Comment: No response to M tuberculosis antigens detected. Infection with M tuberculosis is unlikely, but high risk individuals should be considered for additional testing (ATS/IDSA/CDC Clinical Practice Guidelines, 2017). The reference range is an Antigen minus Nil result of <0.35 IU/mL. Chemiluminescence immunoassay methodology FASTING Blood BLOOD SPECIMEN / Unknown 04/20/2023 7:[address] SECURITY OFFICER 04/20/2023 Narrative Resulting Agency Comment Lab Testing performed at: [facility] [address] [facility] [phone] Esther Monteiro MD LAB - CHEMISTRY MIYA JERRY [facility] ACCOUNT BILL [address] [place] [address] * CBC WITH DIFFERENTIAL (04/20/2023 7:[address] SECURITY OFFICER) Only the most recent of14 resultswithin the time period is included. WBC 6.2 3.4 - 10.8 x10E3/uL [facility] ACCOUNT BILL RBC 5.71 4.14 - 5.80 x10E6/uL [facility] ACCOUNT BILL Hemoglobin 16.6 13.0 - 17.7 g/dL [facility] ACCOUNT BILL Hematocrit 50.3 37.5 - 51.0 % [facility] ACCOUNT BILL MCV 88 79 - 97 fL [facility] ACCOUNT BILL MCH 29.1 26.6 - 33.0 pg [facility] ACCOUNT BILL MCHC 33.0 31.5 - 35.7 g/dL [facility] ACCOUNT BILL RDW 13.1 11.6 - 15.4 % [facility] ACCOUNT BILL Platelet Count 232 150 - 450 x10E3/uL [facility] ACCOUNT BILL Granulocytes % 60 Not Estab. % [facility] ACCOUNT BILL Lymphocytes % 27 Not Estab. % [facility] ACCOUNT BILL Monocytes % 11 Not Estab. % [facility] ACCOUNT BILL Eosinophils % 2 Not Estab. % [facility] ACCOUNT BILL Basophils % 0 Not Estab. % [facility] ACCOUNT BILL Immature Cells NOT AVAILABLE [facility] ACCOUNT BILL Comment:Result cannot be obt ained for this observation. Granulocytes Absolute 3.7 1.4 - 7.0 x10E3/uL [facility] ACCOUNT BILL Lymphocytes Absolute 1.7 0.7 - 3.1 x10E3/uL [facility] ACCOUNT BILL Monocytes Absolute 0.7 0.1 - 0.9 x10E3/uL [facility] ACCOUNT BILL Eosinophils Absolute 0.2 0.0 - 0.4 x10E3/uL [facility] ACCOUNT BILL Basophils Absolute 0.0 0.0 - 0.2 x10E3/uL [facility] ACCOUNT BILL Immature Granulocytes 0 Not Estab. % [facility] ACCOUNT BILL Immature Granulocytes Absolute 0.0 0.0 - 0.1 x10E3/uL [facility] ACCOUNT BILL nRBC NOT AVAILABLE [facility] ACCOUNT BILL Comment:Result cannot be obt ained for this observation. Comment Hematology NOT AVAILABLE [facility] ACCOUNT BILL Comment: FASTING Result cannot be obtained for this observation. Blood BLOOD SPECIMEN / Unknown 04/20/2023 7:[address] SECURITY OFFICER 04/20/2023 Narrative Resulting Agency Comment Lab Testing performed at: [facility] [address] [facility] [phone] Esther Monteiro MD LAB - HEMATOLOGY ORD ERABLES [facility] ACCOUNT BILL [address] [place] [address] * (ABNORMAL) COMPREHENSIVE METABOLIC PANEL (04/20/2023 7:[address] SECURITY OFFICER) Only the most recent of14 resultswithin the time period is included. Glucose 158(H) 70 - 99 mg/dL [facility] ACCOUNT BILL BUN 11 8 - 27 mg/dL [facility] ACCOUNT BILL Creatinine 0.85 0.76 - 1.27 mg/dL [facility] ACCOUNT BILL eGFR by CKD-EPI 98 >59 mL/min/1.7 3 [facility] ACCOUNT BILL BUN/Creatinine Ratio 13 10 - 24 [facility] ACCOUNT BILL Sodium 140 134 - 144 mmol/L [facility] ACCOUNT BILL Potassium 4.6 3.5 - 5.2 mmol/L [facility] ACCOUNT BILL Chloride 101 96 - 106 mmol/L [facility] ACCOUNT BILL CO2 26 20 - 29 mmol/L [facility] ACCOUNT BILL Calcium 9.3 8.6 - 10.2 mg/dL [facility] ACCOUNT BILL Protein Total 7.3 6.0 - 8.5 g/dL [facility] ACCOUNT BILL Albumin 4.3 3.9 - 4.9 g/dL [facility] ACCOUNT BILL Globulin Total 3.0 1.5 - 4.5 g/dL [facility] ACCOUNT BILL Albumin/Globulin Ratio 1.4 1.2 - 2.2 [facility] ACCOUNT BILL Bilirubin Total 0.6 0.0 - 1.2 mg/dL [facility] ACCOUNT BILL Alkaline Phosphatase 67 44 - 121 IU/L [facility] ACCOUNT BILL AST 23 0 - 40 IU/L [facility] ACCOUNT BILL ALT 13 0 - 44 IU/L [facility] ACCOUNT BILL Comment:FASTING Blood BLOOD SPECIMEN / Unknown 04/20/2023 7:[address] SECURITY OFFICER 04/20/2023 Narrative Resulting Agency Comment Lab Testing performed at: [facility] [address] [facility] [phone] Esther Monteiro MD LAB - CHEMISTRY MIYA JERRY Performing Organization Address [facility] Co de Phone Number [facility] ACCOUNT BILL [address] [place] [address] * PROSTATE SPECIFIC ANTIGEN SCREEN (04/20/2023 7:[address] SECURITY OFFICER) Only the most recent of13 resultswithin the time period is included. PSA 0.4 0.0 - 4.0 ng/mL [facility] ACCOUNT BILL Comment: Shama ECLIA methodology. . According to the [place] [employer], Serum PSA should decrease and remain at undetectable levels after radical prostatectomy. The AUA defines biochemical recurrence as an initial PSA value 0.2 ng/mL or greater followed by a subsequent confirmatory PSA value 0.2 ng/mL or greater. Values obtained with different assay methods or kits cannot be used interchangeably. Results cannot be interpreted as absolute evidence of the presence or absence of malignant disease. FASTING Blood BLOOD SPECIMEN / Unknown 04/20/2023 7:[address] SECURITY OFFICER 04/20/2023 Narrative Resulting Agency Comment Lab Testing performed at: [facility] [address] [facility] [phone] Esther Monteiro MD LAB - CHEMISTRY MIYA JERRY Performing Organization Address [facility] Co de Phone Number [facility] ACCOUNT BILL [address] [place] [address] * TSH (04/20/2023 7:[address] SECURITY OFFICER) Only the most recent of5 resultswithin the time period is included. TSH 0.590 0.450 - 4.500 uIU/mL [facility] ACCOUNT BILL Comment:FASTING Blood BLOOD SPECIMEN / Unknown 04/20/2023 7:[address] SECURITY OFFICER 04/20/2023 Narrative Resulting Agency Comment Lab Testing performed at: [facility] [address] [facility] [phone] Esther Monteiro MD LAB - CHEMISTRY MIYA JERRY [facility] Organization Address City/State/ZIP Co de Phone Number [facility] ACCOUNT BILL [address] [place] [address] * PULMONARY TEST (NOT PFT OR SLEEP STUDY) (05/25/2022) Sherly Posey MD SCANNING ONLY * CARDIAC TEST (05/25/2022) Only the most recent of4 resultswithin the time period is included. Sherly Posey MD SCANNING ONLY * AUDIOLOGY (05/25/2022) Sherly Posey MD SCANNING ONLY * VISUAL ACUITY SCREENING (05/25/2022) Only the most recent of6 resultswithin the time period is included. Sherly Posey MD NURSING - COMMUNICAT ION * PULMONARY TEST (NOT PFT OR SLEEP STUDY) (05/25/2021) Kofi Hart MD SCANNING ONLY * AUDIOLOGY (05/25/2021) Kofi Hart MD SCANNING ONLY * AUDIOLOGY (03/26/2020) Kofi Hart MD SCANNING ONLY * HEAVY METALS URINE RANDOM PANEL (04/23/2019 10:00 AM CDT) Creatinine 24 Hour Urine 2.26 0.30 - 3.00 g/L [facility] ACCOUNT BILL Comment:Detection Limit = 0. 10 Arsenic Total 24 Hour Urine 19 0 - 50 ug/L [facility] ACCOUNT BILL Comment:Detection Limit = 10 Arsenic Inorganic ug/L 24 Hour Urine None Detected 0 - 19 ug/L [facility] ACCOUNT BILL Comment: . Environmental Exposure: 0-19 Occupational Exposure: 35 . Detection Limit = 10 Inorganic As/Plant Protection Superintendent Ratio NOT NEEDED [facility] ACCOUNT BILL Comment:Ancillary determined the test is not needed. Arsenic 24 Hour Urine NOT NEEDED [facility] ACCOUNT BILL Comment:Ancillary determined the test is not needed. Lead, Urine 1 0 - 49 ug/L [facility] ACCOUNT BILL Comment:Detection Limit = 1 Lead/Creat. Ratio 0 0 - 49 ug/g creat [facility] ACCOUNT BILL Comment:Environmental Exposu re: < 50 Lead, Urine (24 Hr) NOT NEEDED [facility] ACCOUNT BILL Comment:Ancillary determined the test is not needed. Mercury 24 Hour Urine None Detected 0 - 19 ug/L [facility] ACCOUNT BILL Comment:Detection Limit = 1 Mercury ug/g Creat Urine NOT NEEDED [facility] ACCOUNT BILL Comment:Ancillary determined the test is not needed. Mercury 24 Hour Urine NOT NEEDED [facility] ACCOUNT BILL Comment:Ancillary determined the test is not needed. Cadmium 24 Hour Urine None Detected None detected ug/L [facility] ACCOUNT BILL Comment:Detection Limit = 1. 0 Cadmium Urine ug/24HR NOT NEEDED [facility] ACCOUNT BILL Comment:Ancillary determined the test is not needed. Cadmium/Creatini ne Ratio 24 Hour Urine NOT NEEDED [facility] ACCOUNT BILL Comment:Ancillary determined the test is not needed. Urine URINE SPECIMEN OBTAINED BY CLEAN CATCH PROCEDURE / Unknown 04/23/2019 10:00 AM CDT 04/23/2019 Narrative [facility] ACCOUNT BILL - 04/26/2019 5:08 PM CDT Test(s) 763893-Qgbmfxg (Total),U; 730881-Jeekvjf(Inorganic),U; 329877-Jzlc, Urine; 434144-Fxwdwof, Urine; 201140-Qppvigr, Urine was developed and its performance characteristics determined by [facility]. It has not been cleared or approved by the Food and Drug Administration. Resulting Agency Comment Lab Testing performed at: [address] [phone] Kofi Hart MD LAB - URINE CHEMISTR Y ORDERABLES [facility] ACCOUNT BILL [address] [place] [address] * PULMONARY TEST (NOT PFT OR SLEEP STUDY) (04/23/2019) Kofi Hart MD SCANNING ONLY * TESTOSTERONE TOTAL (02/18/2019 7:[address] SECURITY OFFICER) Testosterone 457 264 - 916 ng/dL [facility] ACCOUNT BILL Comment: Adult male reference interval is based on a population of healthy nonobese males (BMI <30) between 19 and 39 years old. [email or web address]. JCEM 2017,102;2727-6954. PMID: [id number]. FASTING Blood BLOOD SPECIMEN / Unknown 02/18/2019 7:[address] SECURITY OFFICER 02/19/2019 Narrative Resulting Agency Comment Lab Testing performed at: [facility] [address] [phone] Kofi Hart MD LAB - CHEMISTRY MIYA JERRY Performing Organization Address City/[facility]/ZIP Co de Phone Number [facility] ACCOUNT BILL [address] [place] [address] * BLOOD TYPE ABO+ RH PANEL (02/18/2019 7:[address] SECURITY OFFICER) Pathologist [facility] ABO B [facility] ACCOUNT BILL Rh Type Positive [facility] ACCOUNT BILL Comment: Please note: Prior records for this patient's ABO / Rh type are not available for additional verification. FASTING Blood BLOOD SPECIMEN / Unknown 02/18/2019 7:[address] SECURITY OFFICER 02/19/2019 Narrative Resulting Agency Comment Lab Testing performed at: [facility] [address] [facility] [place] [phone] Kofi Hart MD LAB - BLOOD BANK ORD ERABLES Performing Organization Address City/[facility]/ZIP Co de Phone Number [facility] ACCOUNT BILL [address] [place] [address] * HEPATITIS C ANTIBODY (02/18/2019 7:[address] SECURITY OFFICER) Pathologist [facility] Hepatitis C Antibody 0.1 0.0 - 0.9 s/co ratio [facility] ACCOUNT BILL Comment: Negative: < 0.8 Indeterminate: 0.8 - 0.9 Positive: > 0.9 . The CDC recommends that a positive HCV antibody result be followed up with a HCV Nucleic Acid Amplification test (055304). FASTING Blood BLOOD SPECIMEN / Unknown 02/18/2019 7:[address] SECURITY OFFICER 02/19/2019 Narrative Resulting Agency Comment Lab Testing performed at: [facility] [address] [facility] [phone] Kofi Hart MD LAB - CHEMISTRY MIYA JERRY [facility] ACCOUNT BILL [address] [place] [address] * XR CHEST 2VW (06/28/2018 1:02 PM CDT) Only the most recent of2 resultswithin the time period is included. Anatomical Region Laterality Modality Chest Radiographic Magi ging 06/28/2018 1:03 PM CDT Impressions 06/28/2018 1:54 PM CDT NO ACUTE PULMONARY DISEASE. 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 FINDINGS: Two views of the chest compared to prior 03/19/2013 show no consolidation, pleural effusion, or pneumothorax. The heart size is normal. 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 FINDINGS: Two views of the chest compared to prior 03/19/2013 show no consolidation, pleural effusion, or pneumothorax. The heart size is normal. IMPRESSION NO ACUTE PULMONARY DISEASE. Edited by Gabriela Sharp on 06/28/2018 1:05 PM Reading Radiologist: Micky Sanchez MD on 06/28/2018 at 1:54 PM Kofi Hart MD DIAGNOSTIC IMAGING O RDERABLES * PULMONARY TEST (NOT PFT OR SLEEP STUDY) (06/28/2018) Kofi Hart MD SCANNING ONLY * AUDIOLOGY (06/28/2018) Kofi Hart MD SCANNING ONLY * LIPOPROTEIN A (06/06/2018 8:19 AM CDT) Pathologist [facility] Lipoprotein (a) 45 <75 nmol/L [facility] ACCOUNT BILL Comment: Note: Values greater than or equal to 75 nmol/L may indicate an independent risk factor for CHD, but must be evaluated with caution when applied to non- populations due to the influence of genetic factors on Lp(a) across ethnicities. FASTING Blood BLOOD SPECIMEN / Unknown 06/06/2018 8:19 AM CDT 06/06/2018 Narrative Resulting Agency Comment Lab Testing performed at: [facility] [address] [phone] Kofi Hart MD LAB - CHEMISTRY MIYA JERRY [facility] Organization Address City/State/ZIP Co de Phone Number [facility] ACCOUNT BILL [address] [place] [address] * PULMONARY/RESPIRATORY REPORT ORDER (06/20/2017) Kofi Hart MD RESPIRATORY THERAPY ORDERABLES * LAB RESULTS ORDER (06/20/2017) Kofi Hart MD LAB - THERAPEUTIC DR UG MONITORING ORDERABLES * AUDIOLOGY/TYMPANOMETRY ORDER (06/20/2017) Kofi Hart MD AUDIOLOGY SERVICES O RDERABLES * (ABNORMAL) HEMOGLOBIN A1C - POINT OF CARE (AMB) (06/20/2017) Pathologist [facility] Hemoglobin A1c POCT 6.0(H) % QC Verified Yes Blood BLOOD SPECIMEN / Unknown 06/20/2017 Kofi Hart MD LAB - POINT OF CARE ORDERABLES * MMR IMMUNITY PROFILE (05/29/2017 8:04 AM CDT) Rubella Antibody 11.40 Immune >0.99 index [facility] ACCOUNT BILL Comment: Non-immune <0.90 Equivocal 0.90 - 0.99 Immune >0.99 Measles (Rubeola) Antibody IgG 43.6 Immune >29.9 AU/mL [facility] ACCOUNT BILL Comment: Negative <25.0 Equivocal 25.0 - 29.9 Positive >29.9 Presence of antibodies to Rubeola is presumptive evidence of immunity except when acute infection is suspected. Mumps Virus Antibody IgG Index >300.0 Immune >10.9 AU/mL [facility] ACCOUNT BILL Comment: Negative <9.0 Equivocal 9.0 - 10.9 Positive >10.9 A positive result generally indicates past exposure to Mumps virus or previous vaccination. FASTING Blood BLOOD SPECIMEN / Unknown 05/29/2017 8:04 AM CDT 05/29/2017 Narrative Resulting Agency Comment [facility] [address] [facility] [phone] Kofi Hart MD LAB - SEROLOGY ORDER SHIVAM [facility] ACCOUNT BILL [address] [place] [address] * (ABNORMAL) URINALYSIS MICROSCOPIC ONLY REFLEXED (05/29/2017 8:04 AM CDT) WBC UA 0-5 0 - 5 /hpf [facility] ACCOUNT BILL RBC UA 3-10(A) 0 - 2 /hpf [facility] ACCOUNT BILL Epithelial Cells (non renal) None seen 0 - 10 /hpf [facility] ACCOUNT BILL Epithelial Cells (renal) NOT NEEDED [facility] ACCOUNT BILL Comment:Ancillary determined the test is not needed Casts ua NOT NEEDED [facility] ACCOUNT BILL Comment:Ancillary determined the test is not needed Casts UA NOT NEEDED [facility] ACCOUNT BILL Comment:Ancillary determined the test is not needed Crystals UA NOT NEEDED [facility] ACCOUNT BILL Comment:Ancillary determined the test is not needed Crystals UA NOT NEEDED [facility] ACCOUNT BILL Comment:Ancillary determined the test is not needed Mucus UA Present Not Estab. [facility] ACCOUNT BILL Bacteria UA Few None seen/Few [facility] ACCOUNT BILL Yeast UA NOT NEEDED [facility] ACCOUNT BILL Comment:Ancillary determined the test is not needed Trichomonas UA NOT NEEDED [facility] ACCOUNT BILL Comment:Ancillary determined the test is not needed Comment Urine NOT NEEDED [facility] ACCOUNT BILL Comment: FASTING Ancillary determined the test is not needed 05/29/2017 8:04 AM CDT 05/29/2017 Narrative Resulting Agency Comment [facility] [address] [facility] [phone] Kofi Hart MD LAB - URINALYSIS ORD ERABLES [facility] ACCOUNT BILL [address] [place] [address] * QUANTIFERON IN TUBE REFLEXED (05/29/2017 8:04 AM CDT) Only the most recent of2 resultswithin the time period is included. QuantiFERON TB Gold Negative Negative [facility] ACCOUNT BILL QuantiFERON Criteria [facility] ACCOUNT BILL Comment: To be considered positive a specimen should have a TB Ag minus Nil value greater than or equal to 0.35 IU/mL and in addition the TB Ag minus Nil value must be greater than or equal to 25% of the Nil value. There may be insufficient information in these values to differentiate between some negative and some indeterminate test values. QuantiFERON TB Ag Value 0.02 IU/mL [facility] ACCOUNT BILL QuantiFERON Nil Value 0.02 IU/mL [facility] ACCOUNT BILL QuantiFERON Mitogen Value >10.00 IU/mL [facility] ACCOUNT BILL QFT TB Ag Minus Nil Value IU/mL 0.00 IU/mL [facility] ACCOUNT BILL Interpretation [facility] ACCOUNT BILL Comment: The QuantiFERON TB Gold (in Tube) assay is intended for use as an aid in the diagnosis of TB infection. Negative results suggest that there is no TB infection. In patients with high suspicion of exposure, a negative test should be repeated. A positive test indicates infection with Mycobacterium tuberculosis. Among individuals without tuberculosis infection, a positive test may be due to exposure to M. kansasii, M. szulgai or M. marinum. On the Internet, go to cdc.gov/tb for further details. FASTING 05/29/2017 8:04 AM CDT 05/29/2017 Narrative Resulting Agency Comment [facility] [address] [phone] Kofi Hart MD LAB - CHEMISTRY MIYA JERRY Performing Organization Address [facility]/ZIP Co de Phone Number [facility] ACCOUNT BILL [address] [place] [address] * PULMONARY/RESPIRATORY REPORT ORDER (03/22/2016) Kofi Hart MD RESPIRATORY THERAPY ORDERABLES * AUDIOLOGY/TYMPANOMETRY ORDER (03/22/2016) Kofi Hart MD AUDIOLOGY SERVICES O RDERABLES * URINALYSIS DIPSTICK AUTO (03/20/2014 8:[address] SECURITY OFFICER) Only the most recent of5 resultswithin the time period is included. Specific Bland UA 1.027 1.005 - 1.030 [facility] ACCOUNT BILL pH UA 6.0 5.0 - 7.5 [facility] ACCOUNT BILL Color UA Yellow Yellow [facility] ACCOUNT BILL Appearance Clear Clear [facility] ACCOUNT BILL Leukocyte UA Negative Negative [facility] ACCOUNT BILL Protein UA Trace Negative/Tra ce [facility] ACCOUNT BILL Glucose UA Negative Negative [facility] ACCOUNT BILL Glucose Reflex NOT NEEDED [facility] ACCOUNT BILL Comment:Ancillary determined the test is not needed Ketone UA Negative Negative [facility] ACCOUNT BILL Occult Blood Urine Negative Negative [facility] ACCOUNT BILL Bilirubin UA Negative Negative [facility] ACCOUNT BILL Urobilinogen 0.2 0.0 - 1.9 mg/dL [facility] ACCOUNT BILL Nitrite UA Negative Negative [facility] ACCOUNT BILL Microscopic Examination Urine [facility] ACCOUNT BILL Comment:Microscopic not ramone cated and not performed. 03/20/2014 8:[address] SECURITY OFFICER 03/20/2014 1:[address] SECURITY OFFICER Narrative Resulting Agency Comment [facility] [address] [facility] [phone] Lola Lr Jr., MD LAB - URINALYSIS OR DERABLES Performing Organization Address [facility]/ZIP Co de Phone Number [facility] ACCOUNT BILL * XR FINGER(S) LEFT (04/05/2013 8:[address] SECURITY OFFICER) Anatomical Region Laterality Modality Upper Extremity, Wrist / Hand Ra diographic Imaging 04/05/2013 11:[address] SECURITY OFFICER Impressions 04/05/2013 12:[address] SECURITY OFFICER Negative for fracture at this time. Please see above. Edited by Erin Aldana on 04/05/2013 11:46 AM Narrative 04/05/2013 12:[address] SECURITY OFFICER EXAMINATION: LEFT THUMB 3 VIEWS INDICATION: Patient complains of pain at the base of the left thumb. FINDINGS: No fracture can be identified on the current plain films. The AP and oblique views show joint space narrowing at the first carpal metacarpal joint. Subchondral sclerosis can be seen at the base of the first metacarpal. The articular surface of the greater multangular is flattened. A small dystrophic calcification is noted on the lateral edge of the first CMC joint. If the patient's symptoms persist or worsen, consideration may be given to an alternative imaging modality such as an MRI or a bone scan to check for an occult process. Procedure Note Ru Hanna MD - 04/05/2013 EXAMINATION: LEFT THUMB 3 VIEWS INDICATION: Patient complains of pain at the base of the left thumb. FINDINGS: No fracture can be identified on the current plain films. The AP and oblique views show joint space narrowing at the first carpal metacarpal joint. Subchondral sclerosis can be seen at the base of the first metacarpal. The articular surface of the greater multangular is flattened. A small dystrophic calcification is noted on the lateral edge of the first CMC joint. If the patient's symptoms persist or worsen, consideration may be given to an alternative imaging modality such as an MRI or a bone scan to check for an occult process. IMPRESSION Negative for fracture at this time. Please see above. Edited by Erin Aldana on 04/05/2013 11:46 AM Yulia Angel MD DIAGNOSTIC IMAGING O RDERABLES Care Teams Change Management Specialist Relationship Specialty Start Date End Date Saira Bansal, MECHANIC FOREMAN-GRADE CHECKER [address] [place] [address] PCP - General Nurse Practitioner Family 05/26/21
--- OUTSIDE RECORDS SUMMARY | 2024-04-22 13:50 | XMS_ITS | Referral Summary ---
Author Organization [facility] Address [address] [address] Care Team Providers Care Customer Supply Coordinator Name Role Phone Saira Bansal FISHING LURE ASSEMBLER-PLACEMENT SPECIALIST Primary Care Provider Source Comments [facility],non-owned Affiliates and Associated Physician Practices is amultiple site organization consisting of ambulatory clinics and hospital sitesin [place], [place], [place] and [place]. This disclosure is being madepursuant to the Care Everywhere program and may not contain all information available regarding this patient. Last updated 17.[facility] Allergies No known active allergies Medications * Be aware that medications may not be up to date on this document. Alwaysverify current medications with the patient. Medication Sig Dispensed Refills Start Date End Date Status indomethacin (INDOCIN) 50 MG capsule Take 1 Cap by mouth at bedtime 11 02/23/2016 Active miSOPROStol (CYTOTEC) 200 MCG tablet Take 1 Tab by mouth 2 times daily 3 02/09/2016 Active metFORMIN (GLUCOPHAGE) 500 MG tablet Take 1 (one) tablet by mouth once daily 02/03/2020 Active lisinopril (PRINIVIL; ZESTRIL) 20 MG tablet Take 20 mg by mouth once daily 10/03/2019 Active sildenafil (VIAGRA) 50 MG tablet TAKE 1 TABLET BY MOUTH DAILY NEEDED 30 MINUTES TO 4 HOURS BEFORE ACTIVITY 04/26/2021 Active montelukast (Singulair) 10 MG tablet Take 1 (one) tablet by mouth at bedtime Active Active Problems Problem Noted Date Diagnosed Date Essential hypertension 10/22/2019 S/P ablation of atrial fibrillation 09/13/2018 Overview (04/23/2019): for PSVT Pre-diabetes 02/13/2017 Microscopic hematuria 02/13/2017 Overview (06/20/2017): new onset Low HDL (under 40) 02/13/2017 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 Machuca, cardiology Hepatitis B Titer - 03/07/08 03/22/2016 Overview (05/07/2009): Negative Varicella Antibodies 017 Overview (05/07/2009): 03/07/08 (negative) 04/01/08, 05/13/08 Hepatitis C Antibodies - 03/07/08 03/22/2016 Overview (05/07/2009): Negative Encounter for routine chest x-ray 03/22/2016 Overview (07/07/2014): Immunizations Name Administration Dates Next Due INFLUENZA VACCINE, TRIV. (AF LURIA, FLUZONE TRIVALENT; 6MO+) (IIV3) 11/27/2013,11/27/2012,12/10/2010,2009 Covid REALTIME.CO primary monoval ent 12+ yr 0.3mL Purple cap 03/25/2020,03/07/2020 HEP A VACCINE, ADULT 10/09/2008,10/01/2008,04/01 HEP B VACCINE ADOL/ADULT 2 DOSE 10/09/2008,10/01,04/01/2008 INFLUENZA VACCINE, QUADR. (F LUZONE; FLULAVAL; FLUARIX; AFLURIA QUADRIVALENT; 6MO+), 0.5 ML (IIV4) 12/09/2021,12/02/2019,11/12/2018,2016,11/23/2015,11/28/2014 Influenza Pf Intradermal (ADULT) 12/06/2011 TDAP (7yrs+) 04/23/2019 TETANUS 02/13/2005 Social History Tobacco Use Types Packs/Day Years [...] Mass Index 28.35 05/19/2023 9:05 AM CDT Plan of Treatment Not on file Procedures Procedure Name Priority Date/Time Associated Diagnosis Comments COMPREHENSIVE METABOLIC PANEL Routine 04/20/2023 7:45 AM UI ENGINEER Annual Physical Exam - [facility] LIPID PROFILE W TCHOL/HDL Routine 04/20/2023 7:45 AM UI ENGINEER Annual Physical Exam - [facility] PROSTATE SPECIFIC ANTIGEN SCREEN Routine 04/20/2023 7:45 AM UI ENGINEER Annual Physical Exam - [facility] HEPATITIS C ANTIBODY Routine 02/18/2019 7:55 AM UI ENGINEER Annual Physical Exam - [facility] from Last 3 Months or Most Recently Relevant to Health Maintenance Results * (ABNORMAL) LIPID PROFILE W TCHOL/HDL (04/20/2023 7:45 AM UI ENGINEER) Cholesterol 179 100 - 199 mg/dL [facility] [...] BLOOD SPECIMEN / Unknown 04/20/2023 7:45 AM UI ENGINEER 04/20/2023 Narrative Resulting Agency Comment Lab Testing performed at: [facility] [address] [id number] Esther Monteiro MD LAB - CHEMISTRY MIYA JERRY [facility] ACCOUNT BILL [address] [place] [address] * (ABNORMAL) COMPREHENSIVE METABOLIC PANEL (04/20/2023 7:45 AM UI ENGINEER) Glucose 158(H) 70 - 99 mg/dL [facility] [...] BLOOD SPECIMEN / Unknown 04/20/2023 7:45 AM UI ENGINEER 04/20/2023 Narrative Resulting Agency Comment Lab Testing performed at: [facility] [address] [id number] Esther Monteiro MD LAB - CHEMISTRY MIYA JERRY [facility] ACCOUNT BILL [address] [place] [address] * PROSTATE SPECIFIC ANTIGEN SCREEN (04/20/2023 7:45 AM UI ENGINEER) PSA 0.4 0.0 - 4.0 ng/mL [facility] ACCOUNT BILL Comment: Shama ECLIA methodology. . According to the [place] [employer], Serum PSA should decrease and [...] BLOOD SPECIMEN / Unknown 04/20/2023 7:45 AM UI ENGINEER 04/20/2023 Narrative Resulting Agency Comment Lab Testing performed at: [facility] [address] [id number] Esther Monteiro MD LAB - CHEMISTRY MIYA JERRY Performing Organization Address City/[facility]/ZIP Co de Phone Number [facility] ACCOUNT BILL [address] [place] [address] * HEPATITIS C ANTIBODY (02/18/2019 7:55 AM UI ENGINEER) Hepatitis C Antibody 0.1 0.0 - 0.9 s/co ratio [facility] ACCOUNT BILL Comment: Negative: < 0.8 Indeterminate: 0.8 - 0.9 Positive: > 0.9 . The CDC recommends that a positive HCV antibody result be followed up with a HCV Nucleic Acid Amplification test (644420). FASTING Blood BLOOD SPECIMEN / Unknown 02/18/2019 7:55 AM UI ENGINEER 02/19/2019 Narrative Resulting Agency Comment Lab Testing performed at: [facility] [address] [id number] Kofi Hart MD LAB - CHEMISTRY MIYA JERRY Performing Organization Address City/[facility]/ZIP Co de Phone Number [facility] ACCOUNT BILL [address] [place] [address] from Last 3 Months or Most Recently Relevant to Health Maintenance Administered Medications Care Teams Customer Supply Coordinator Relationship Specialty Start Date End Date Saira Bansal, FISHING LURE ASSEMBLER-PLACEMENT SPECIALIST [address] [place] [address] PCP - General Nurse Practitioner Family 05/26/21
--- OUTSIDE RECORDS SUMMARY | 2024-04-22 13:51 | XMS_ITS | Clinical Summary ---
Author Organization [facility] Address [address] [place] [address] Care Team Providers Care Integrity Director Name Role Phone Saira Bansal MARKET MASTER-PROCESS DEVELOPER Primary Care Provider Source Comments [facility],non-owned Affiliates and Associated Physician Practices is amultiple site organization consisting of ambulatory clinics and hospital sitesin [place], [place], [place] and [place]. This disclosure is being madepursuant to the Care Everywhere program and may not contain all information available regarding this patient. 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 (F LUZONE; FLULAVAL; FLUARIX; AFLURIA QUADRIVALENT; 6MO+), 0.5 ML (IIV4) 12/09/2021,12/02/2019,11/12/2018,2016,11/23/2015,11/28/2014 Influenza Pf Intradermal (ADULT) 12/06/2011 TDAP (7yrs+) 04/23/2019 TETANUS 02/13/2005 Family History Medical History Relation Name Comments Cancer - Prostate Brother 1 Santo Cancer Brother 3 unknown type Cancer Brother 4 liver Cancer Father throat Diabetes Father Cancer - Breast Mother Cancer Other sibling of liver cancer age 42 Relation Name Status Comments Brother 1 Santo Alive Brother 2 Alive Brother 3 Brother 4 Father Mother breast cancer Other Social History Tobacco Use Types Packs/Day Years [...] 05/19/2023 9:05 AM CDT Plan of Treatment Health Maintenance Due Date Last Done Comments COLOGUARD (AGES 45-75) - COLON CA SCREENING [address] COLONOGRAPHY - COLON CA SCREENING 1960 FLEX SIG - COLON CA SCREENING 1960 HIV SCREENING 05/31/1975 HEPATITIS B VACCINE (3 of 3 - 19+ 3-dose series) 12/04/2008 10/09/2008, 10/01/2008, 04/01/2008 PNEUMOCOCCAL VACCINE 50+ (1 of 1 - PCV) 2010 ZOSTER VACCINE (1 of 2) 2010 Respiratory Syncytial Virus (RSV) Vaccine Pt: or over 60 yrs (1 - Risk 60-74 years 1-dose series) 2020 FIT - COLON CA SCREENING 02/13/2022 022 (Done Outside Per Report) COVID-19 VACCINE (3 - 2023- season) 2023 03/25/2020, 03/07/2020 INFLUENZA VACCINE (#1) 2023 4, 12/09/2021, 01/04/2021, Additional history exists COLONOSCOPY - COLON CA SCREENING 02/14/2024 02/13/2014 (Done Outside Per Report) Colorectal Cancer Screening 02/14/2024 DEPRESSION SCREENING 02/14/2024 PROSTATE CA SCREENING 04/19/2024 04/20/2023 , 05/19/2022, 05/06/2021, Additional history exists SCREENING FOR DIABETES 04/19/2026 , 04/20/2023, 05/19/2022, Additional history exists LIPID TESTING 04/19/2028 04/20/2023, 04/0 07/2022, 05/06/2021, Additional history exists DTAP/TDAP/TD VACCINES (3 - Td or Tdap) 04/22/2029 04/23/2019, 02/13/2005 HEPATITIS C SCREENING Completed 02/18/2019 HIB VACCINE Aged Out No longer eligi ble based on patient's age to complete this topic HPV VACCINE Aged Out No longer eligi ble based on patient's age to complete this topic MENINGOCOCCAL (Group B) VACCINE Aged Out No longer eligible based on patient's age to complete this topic MENINGOCOCCAL VACCINE Aged Out No galo bradley eligible based on patient's age to complete this topic PNEUMOCOCCAL VACCINE Aged Out No long er eligible based on patient's age to complete this topic Procedures Procedure Name Priority Date/Time Associated Diagnosis Comments COMPREHENSIVE METABOLIC PANEL Routine 04/20/2023 7:45 AM ARCHITECTURAL JOB CAPTAIN Annual Physical Exam [facility] LIPID PROFILE W TCHOL/HDL Routine 04/20/2023 7:45 AM ARCHITECTURAL JOB CAPTAIN Annual Physical Exam [facility] PROSTATE SPECIFIC ANTIGEN SCREEN Routine 04/20/2023 7:45 AM ARCHITECTURAL JOB CAPTAIN Annual Physical Exam [facility] HEPATITIS C ANTIBODY Routine 02/18/2019 7:55 AM ARCHITECTURAL JOB CAPTAIN Annual Physical Exam [facility] from Last 3 Months or Most Recently Relevant to Health Maintenance Results * (ABNORMAL) LIPID PROFILE W TCHOL/HDL (04/20/2023 7:45 AM ARCHITECTURAL JOB CAPTAIN) Cholesterol 179 100 - 199 mg/dL [facility] [...] BLOOD SPECIMEN / Unknown 04/20/2023 7:45 AM ARCHITECTURAL JOB CAPTAIN 04/20/2023 Narrative Resulting Agency Comment Lab Testing performed at: [facility] [address] [id number] Esther Monteiro MD LAB - CHEMISTRY MIYA JERRY [facility] ACCOUNT BILL [address] [place] [address] * (ABNORMAL) COMPREHENSIVE METABOLIC PANEL (04/20/2023 7:45 AM ARCHITECTURAL JOB CAPTAIN) Pathologist [facility] Glucose 158(H) 70 - 99 mg/dL [facility] [...] BLOOD SPECIMEN / Unknown 04/20/2023 7:45 AM ARCHITECTURAL JOB CAPTAIN 04/20/2023 Narrative Resulting Agency Comment [facility]: [facility] [address] [id number] Esther Monteiro MD LAB - CHEMISTRY MIYA JERRY [facility] ACCOUNT BILL [address] [place] [address] * PROSTATE SPECIFIC ANTIGEN SCREEN (04/20/2023 7:45 AM ARCHITECTURAL JOB CAPTAIN) Pathologist [facility] PSA 0.4 0.0 - 4.0 ng/mL [facility] ACCOUNT BILL Comment: Shama ECLIA methodology. . According to the [place] [employer], Serum PSA should decrease and [...] BLOOD SPECIMEN / Unknown 04/20/2023 7:45 AM ARCHITECTURAL JOB CAPTAIN 04/20/2023 Narrative Resulting Agency Comment Lab Testing performed at: [facility] [employer] [place] [id number] Esther Monteiro MD LAB - CHEMISTRY MIYA JERRY [facility] ACCOUNT BILL [address] [place] [address] * HEPATITIS C ANTIBODY (02/18/2019 7:55 AM ARCHITECTURAL JOB CAPTAIN) Hepatitis C Antibody 0.1 0.0 - 0.9 s/co ratio [facility] ACCOUNT BILL Comment: Negative: < 0.8 Indeterminate: 0.8 - 0.9 Positive: > 0.9 . The CDC recommends that a positive HCV antibody result be followed up with a HCV Nucleic Acid Amplification test (724897). FASTING Blood BLOOD SPECIMEN / Unknown 02/18/2019 7:55 AM ARCHITECTURAL JOB CAPTAIN 02/19/2019 Narrative Resulting Agency Comment Lab Testing performed at: [facility] [address] [id number] Kofi Hart MD LAB - CHEMISTRY MIYA JERRY [facility] ACCOUNT BILL [address] [place] [address] from Last 3 Months or Most Recently Relevant to Health Maintenance Care Teams Integrity Director Relationship Specialty Start Date End Date Saira Bansal, MARKET MASTER-PROCESS DEVELOPER [address] [place] [address] PCP - General Nurse Practitioner Family 05/26/21
--- OUTSIDE RECORDS SUMMARY | 2024-04-22 13:51 | XMS_ITS | Clinical Summary ---
Author Organization [facility] Address [address] [place] [address] Phone Care Team Providers Care Technical Information Specialist Name Role Phone Najma Herrera MD Primary Care Provider Un available Medications misoprostol (CYTOTEC) 200 mcg tablet Take 200 mcg by mouth 4 times daily. Active CETIRIZINE HCL (ZYRTEC ORAL) Take by mouth. Active indomethacin (INDOCIN) 50 mg capsule 08/25/2015 Active ibuprofen (MOTRIN) 200 mg tablet Take 200 mg by mouth every 6 hours as needed for Pain, Mild Takes up to 5 tabs per day . Active CIALIS 20 mg tablet TK 1 T PO QD PRN 0 07/19/2018 Active lisinopriL (PRINIVIL) 20 mg tablet Take 1 Tablet (20 mg) by mouth daily. 90 Tablet 3 10/03/2019 Active metFORMIN (GLUCOPHAGE) 500 mg tablet 500 mg daily with breakfast. 02/03/2020 Active aspirin (TAMIKA) 325 mg tablet Take 1 Tablet (325 mg) by mouth daily. 30 Tablet 11 04/23/2020 Active montelukast (SINGULAIR) 5 mg Tablet, Chewable Take 5 mg by mouth daily. Active sildenafiL 50 mg tablet Take 50 mg by mouth 1 time daily as needed. 04/26/2021 Active Active Problems Patient Care Coordination No te Formatting of this note migh t be different from the original. Najma Herrera MD-[facility] @ Caroline Dover NP-[facility] @ Problem Noted Date Diagnosed Date Arthritis 08/17/2022 Essential hypertension 10/22/2019 SVT (supraventricular tachycardia) 07/11/2018 Pure hypercholesterolemia 07/04/2017 Paroxysmal atrial fibrillation 09/08/2015 Resolved Problems Problem Noted Date Diagnosed Date Resolved Date Preop cardiovascular exam 08/17/2022 Family History Medical History Relation Name Comments No Known Problems Other Relation Name Status Comments Other Social History Tobacco Use Types Packs/Day Years Used Date Smoking Tobacco: Never Smokeless Tobacco: Current Chew Tobacco Cessation:Ready to Q uit: Not Asked; Counseling Given: Not Answered Comments:Chew once a week. Alcohol Use Standard Drinks/Week Comments Yes 12 (1 standard drink = 0.6 oz pu re alcohol) Feeling Safe Answer Date Recorded Within the last year, have y ou been afraid of your partner or ex-partner? Patient declined 09/13/2018 Within the last year, have y ou been humiliated or emotionally abused in other ways by your partner or ex-partner? Patient declined 09/13/2018 Within the last year, have y ou been kicked, hit, slapped, or otherwise physically hurt by your partner or ex-partner? Patient declined 09/13/2018 Within the last year, have y ou been raped or forced to have any kind of sexual activity by your partner or ex-partner? Patient declined 09/13/2018 Social Connections Answer Date Recorded In a typical week, how many times do you talk on the phone with family, friends, or neighbors? Patient declined 09/13/2018 How often do you get togethe r with friends or relatives? Patient declined 09/13/2018 How often do you attend jew or confucianism serv ices? Patient declined 09/13/2018 Do you belong to any clubs o r organizations such as jew groups, unions, fraternal or athletic groups, or school groups? Patient declined 09/13/2018 How often do you attend meet ings of the clubs or organizations you belong to? Patient declined 09/13/2018 Are you , , di vorced, , never , or living with a partner? Patient declined 09/13/2018 Financial Resource Strain Answer Date R ecorded How hard is it for you to pa y for the very basics like food, housing, medical care, and heating? Patient declined 09/13/2018 Food Insecurity Answer Date Recorded Within the past 12 months, y ou worried that your food would run out before you got the money to buy more. Patient declined Within the past 12 months, t he food you bought just didn't last and you didn't have money to get more. Patient declined 02/2018 Transportation Needs Answer Date Record ed In the past 12 months, has l ack of transportation kept you from medical appointments or from getting medications? Patient declined 09/13/2018 In the past 12 months, has l ack of transportation kept you from meetings, work, or from getting things needed for daily living? Patient declined 09/13/2018 Sex and Gender Information Value Date Recorded Sex Assigned at Not on file Legal Sex Male 10:02 AM CDT Gender Identity Not on file Sexual Orientation Not on file Last Filed Vital Signs Vital Sign Reading Time Taken Comments Blood Pressure 132/70 08/23/2023 8:42 AM CDT Pulse 64 08/23/2023 8:42 AM CDT Temperature 36.3 C (97.4 F) 04/23/2020 8:02 AM AFFILIATE MARKETING SPECIALIST Respiratory Rate 16 09/14/2018 5:05 AM CDT Oxygen Saturation 97% 08/23/2023 8:42 AM CDT Inhaled Oxygen Concentration - - Weight 81.6 kg (180 lb) 08/23/2023 8:42 AM CDT Height 170.2 cm (5' 7 ) 08/23/2023 8:42 AM CDT Body Mass Index 28.19 08/23/2023 8:42 AM CDT Plan of Treatment Upcoming Encounters Date Type Department Care Team (Late st Contact Info) Description 08/28/2024 9:30 AM CDT Office Visit [facility] [address] [place] [address] Chano Machuca MD [facility] [address] [facility] [address] [place] [address] Health Maintenance Due Date Last Done Comments Pre-Diabetes and Diabetes Screening 1960 FIT-DNA Q 3 years 2005 FIT/FOBT Q 1 year 2005 Flex Sig/CT Colonography Q 5 years 2005 ZOSTER VACCINE (1 of 2) 2010 COLORECTAL SCREENING 09/01/2018 09/02/2015, 09/02/19 16 Colorectal Cancer Screening 09/01/2018 INFLUENZA VACCINE (#1) 2023 2, 12/02/2019, 11/12/2018, Additional history exists COVID-19 Vaccine (3 - 2023- season) 2023 03/25/2020, 03/07/2020 DTAP/TDAP/TD VACCINES (2 - Td or Tdap) 04/22/2029 04/23/2019 RSV VACCINE (60+ or ) (1 - 1-dose 75+ series) 05/31/2035 PNEUMOCOCCAL VACCINE 0-49 YEARS Aged Out No longer eligible based on patient's age to complete this topic Insurance [facility] [employer] PPO Advance Directives For more information, please contact: [phone] * Full Code (Latest Code Status on File) Date Activated Date Inactivated Comments 09/13/2018 12:15 PM 09/14/2018 10:48 AM * Full Code Date Activated Date Inactivated Comments 09/13/2018 7:20 AM 09/13/2018 12:15 PM * Full Code Date Activated Date Inactivated Comments 09/13/2018 5:36 AM 09/13/2018 7:20 AM * Full Code Date Activated Date Inactivated Comments 09/02/2015 7:03 AM 09/02/2015 12:57 PM Care Teams Technical Information Specialist Relationship Specialty Start Date End Date Najma Herrera MD PCP - General Clinical Cardiac Electrophysiology 07/23/18
--- OUTSIDE RECORDS SUMMARY | 2024-04-22 13:51 | XMS_ITS | Encounter Summary ---
Author Organization [facility] Address [address] [place] [address] Care Team Providers Care Staff Design Engineer Name Role Phone None, Pcp Primary Care Provider Unavailabl e Seth Joiner MD Primary Care Provider [phone] Kofi Hart MD Unavailable [phone] Saira Bansal TECHNICAL LABORATORY ASST-CELL TENDER Primary Care Provider Kofi Hart MD Unavailable [phone] Encounter Details Date Type Department Care Team (Late st Contact Info) Description 02/09/2010 [facility]PT Unknown, Provider Social History Tobacco Use Types Packs/Day Years Used Date Smoking Tobacco: Never Alcohol Use Standard Drinks/Week Comments Yes 0 (1 standard drink = 0.6 oz pur e alcohol) 12-20 per week Sex and Gender Information Value Date Recorded Sex Assigned at Not on file Gender Identity Not on file Sexual Orientation Not on file documented as of this encounter Plan of Treatment Not on file documented as of this encounter Visit Diagnoses Not on filedocumented in this encounter Care Teams Staff Design Engineer Relationship Specialty Start Date End Date None, [place] [address] PCP - General 03/19/13 04/04/13 Seth Joiner MD [address] [place] [address] PCP - General Family Medicine 04/05/13 04/22/19 [place] [address] [place] [id number] PCP - Attributed-[employer] 08/13/18 08/01/19 Saira Bansal, TECHNICAL LABORATORY ASST-CELL TENDER [address] [place] [address] PCP - General Nurse Practitioner Family 05/26/21 [place] [address] [facility] [place] [address] PCP - Attributed-[place] [employer] 04/07/17 06/14/17 documented as of this encounter
== END 2024-04-22 11:43 | disposition home or self-care (01) ==
LOC: CHSLAB 11:45
PROVIDERS: PCP Nurse Practitioner Family; Visit Provider Nurse Practitioner Family
DX: M25.552 Pain in left hip (principal); M54.32 Sciatica, left side; G89.29 Other chronic pain; M54.50 Low back pain, unspecified; Z77.29 Contact with and (suspected) exposure to other hazardous substances; M43.06 Spondylolysis, lumbar region; M51.369 Other intervertebral disc degeneration, lumbar region without mention of lumbar back pain or lower extremity pain
CPT/HCPCS: 71046; 72110; 73502

== ENCOUNTER 2024-05-07 07:21 | Outpatient (CLI) | payer BC, SELFPAY ==
--- NOTE | ~2024-05-07 | XR_ITS ---
XR knee LT 3V Ordering provider: Mitchell Ba MD History: . Z96.652 - Presence of left artificial knee joint . Comparison: None. FINDINGS: BONES: No acute fracture or dislocation. JOINT SPACES: Left Total knee arthroplasty. SOFT TISSUES: Normal. IMPRESSION: No acute osseous abnormality left knee. Left total knee arthroplasty. Reviewed, dictated and finalized at location A.
--- OUTSIDE RECORDS SUMMARY | 2024-05-07 07:28 | XMS_ITS | Clinical Summary ---
Author Organization [facility] Address [address] [place] [address] Phone Care Team Providers Care Merchandise Team Manager Name Role Phone Njama Herrera MD Primary Care Provider Un available [...] be different from the original. Najma Herrera MD-[facility] @ Caroline Dover NP-[facility] @ Problem Noted Date [...] declined 09/13/2018 How often do you attend voodoo or orthodoxy serv ices? 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 [facility] [address] [place] [address] Health Maintenance Due Date Last [...] patient's age to complete this topic Insurance [facility] [employer] PPO Advance Directives For more information, please contact: [phone] * Full Code (Latest Code Status on File) Date Activated Date Inactivated Comments 09/13/2018 12:15 PM 09/14/2018 10:48 AM * Full Code Date Activated Date Inactivated Comments 09/13/2018 7:20 AM 09/13/2018 12:15 PM * Full Code Date Activated Date Inactivated Comments 09/13/2018 5:36 AM 09/13/2018 7:20 AM * Full Code Date Activated Date Inactivated Comments 09/02/2015 7:03 AM 09/02/2015 12:57 PM Care Teams Merchandise Team Manager Relationship Specialty Start Date End Date Najma Herrera MD PCP - General Clinical Cardiac Electrophysiology 07/23/18
--- OUTSIDE RECORDS SUMMARY | 2024-05-07 07:28 | XMS_ITS | Encounter Summary ---
Author Organization [facility] Address [address] [place] [address] Care Team Providers Care Carver And Checkerer Specials Name Role Phone None, Pcp Primary Care Provider Unavailabl e Seth Joiner MD Primary Care Provider [phone] Kofi Hart MD Unavailable [phone] Saira Bansal POCKET SETTER LOCKSTITCH-NAVIGATION TEACHER Primary Care Provider Kofi Hart MD Unavailable [phone] Encounter Details Date Type Department Care [...] on filedocumented in this encounter Care Teams Carver And Checkerer Specials Relationship Specialty Start Date End Date None, Pcp [place] [address] PCP - General 03/19/13 04/04/13 Seth Joiner MD [address] [facility] [facility] [address] [place] [address] PCP - General Family Medicine 04/05/13 04/22/19 [place] [address] [place] [address] PCP - Attributed-[employer] Commercial 08/13/18 08/01/19 Saira Bansal, POCKET SETTER LOCKSTITCH-NAVIGATION TEACHER [address] [place] [address] PCP - General Nurse Practitioner Family 05/26/21 [place] [address] [facility] [place] [address] PCP - Attributed-[place] Commercial 04/07/17 06/14/17 documented as of this encounter
--- OUTSIDE RECORDS SUMMARY | 2024-05-07 07:28 | XMS_ITS | Clinical Summary ---
Author Organization [facility] Address [address] [place] [address] Care Team Providers Care Brim Flexer Name Role Phone Saira Bansal EXTENSION ASSOCIATE-SHADE CLASSIFIER Primary Care Provider Source Comments [facility],non-owned Affiliates and Associated Physician Practices is amultiple site organization consisting of ambulatory clinics and hospital sitesin [place], [place], [place] and [place]. This disclosure is being madepursuant to the Care Everywhere program and may not contain all information available regarding this patient. Last updated 17.[facility] Allergies No known active allergies Medications * [...] to environmental toxic substances 02/13 Overview (04/23/2019): Car Hop Annual Physical Exam - [facility] Tobacco use Periodontal disease Osteoarthritis Eczema Resolved [...] LURIA, FLUZONE TRIVALENT; 6MO+) (IIV3) 11/27/2013,11/27/2012,12/10/2010,2009 Covid Calligo primary monoval ent 12+ yr 0.3mL Purple [...] complete this topic MENINGOCOCCAL (Group B) VACCINE SHARED DECISION-MAKING Aged Out No longer eligible based on patient's age to complete this topic MENINGOCOCCAL GROUPS A/C/Y/W VACCINE Aged Out No longer eligible based on patient's age to complete this topic PNEUMOCOCCAL VACCINE Aged Out No long er eligible based on patient's age to complete this topic Procedures Procedure Name Priority Date/Time Associated Diagnosis Comments COMPREHENSIVE METABOLIC PANEL Routine 04/20/2023 7:45 AM CLUBHOUSE MANAGER Annual Physical Exam [facility] LIPID PROFILE W TCHOL/HDL Routine 04/20/2023 7:45 AM CLUBHOUSE MANAGER Annual Physical Exam [facility] PROSTATE SPECIFIC ANTIGEN SCREEN Routine 04/20/2023 7:45 AM CLUBHOUSE MANAGER Annual Physical Exam [facility] HEPATITIS C ANTIBODY Routine 02/18/2019 7:55 AM CLUBHOUSE MANAGER Annual Physical Exam [facility] from Last 3 Months or Most Recently Relevant to Health Maintenance Results * (ABNORMAL) LIPID PROFILE W TCHOL/HDL (04/20/2023 7:45 AM CLUBHOUSE MANAGER) Cholesterol 179 100 - 199 mg/dL [facility] [...] BLOOD SPECIMEN / Unknown 04/20/2023 7:45 AM CLUBHOUSE MANAGER 04/20/2023 Narrative Resulting Agency Comment Lab Testing performed at: [facility] [address] [id number] Esther Monteiro MD LAB - CHEMISTRY MIYA JERRY [facility] ACCOUNT BILL [address] [place] [address] * (ABNORMAL) COMPREHENSIVE METABOLIC PANEL (04/20/2023 7:45 AM CLUBHOUSE MANAGER) Pathologist [facility] Glucose 158(H) 70 - 99 mg/dL [facility] [...] BLOOD SPECIMEN / Unknown 04/20/2023 7:45 AM CLUBHOUSE MANAGER 04/20/2023 Narrative Resulting Agency Comment Lab Testing performed at: [facility] [address] [facility] [id number] Esther Monteiro MD LAB - CHEMISTRY MIYA JERRY [facility] ACCOUNT BILL [address] [place] [address] * PROSTATE SPECIFIC ANTIGEN SCREEN (04/20/2023 7:45 AM CLUBHOUSE MANAGER) PSA 0.4 0.0 - 4.0 ng/mL [facility] ACCOUNT BILL Comment: Shmaa ECLIA methodology. . According to the [place] [employer], Serum PSA should decrease and [...] BLOOD SPECIMEN / Unknown 04/20/2023 7:45 AM CLUBHOUSE MANAGER 04/20/2023 Narrative Resulting Agency Comment Lab Testing performed at: [employer] [address] [employer] [facility] [place] [id number] Esther Monteiro MD LAB - CHEMISTRY MIYA JERRY Performing Organization Address City/[facility] Co de Phone Number [facility] ACCOUNT BILL [address] [place] [address] * HEPATITIS C ANTIBODY (02/18/2019 7:55 AM CLUBHOUSE MANAGER) Hepatitis C Antibody 0.1 0.0 - 0.9 s/co ratio [facility] ACCOUNT BILL Comment: Negative: < 0.8 Indeterminate: 0.8 - 0.9 Positive: > 0.9 . The CDC recommends that a positive HCV antibody result be followed up with a HCV Nucleic Acid Amplification test (221245). FASTING Blood BLOOD SPECIMEN / Unknown 02/18/2019 7:55 AM CLUBHOUSE MANAGER 02/19/2019 Narrative Resulting Agency Comment Lab Testing performed at: [facility] [address] [facility] [place] [id number] Kofi Hart MD LAB - CHEMISTRY MIYA JERRY Performing Organization Address City/[facility]/ZIP Co de Phone Number [facility] ACCOUNT BILL [address] [place] [address] from Last 3 Months or Most Recently Relevant to Health Maintenance Care Teams Brim Flexer Relationship Specialty Start Date End Date Saira Bansal, EXTENSION ASSOCIATE-SHADE CLASSIFIER [address] [place] [address] PCP - General Nurse Practitioner Family 05/26/21
== END 2024-05-07 07:22 | disposition home or self-care (01) ==
LOC: CHSIMG 07:24
PROVIDERS: PCP Nurse Practitioner Family; Visit Provider Orthopaedic Surgery
DX: Z96.652 Presence of left artificial knee joint (principal)
CPT/HCPCS: 73562

== ENCOUNTER 2024-05-08 07:55 | Outpatient (CLI) | payer BC, SELFPAY ==
--- NOTE | ~2024-05-08 | MR_ITS ---
EXAMINATION: MR lumbar spine wo con DATE: 05/08/2024 09:14 INDICATION: Lumbar degenerative disc disease and spondylolysis. TECHNIQUE: Magnetic resonance imaging (MRI) of the lumbar spine was performed without intravenous con trast. Sequences included sagittal T2-weighted FSE, sagittal T2-weighted FS FSE, sagittal T1-weighted FSE, and axial T2-weighted FSE. COMPARISON: Radiographs dated 04/22/2024 FINDINGS: L5 spondylolysis with bilateral pars intra-articular is defects and 6 mm anterolisthesis of L5 on S1. 3 mm retrolisthesis L4 on L5. Vertebral body heights are normal. Severe disc height loss at L4-L5 an d L5-S1, moderate to severe disc height loss at L3-L4, mild to moderate disc height loss at L1-L2 and L2-L3 as well as the visualized lower lumbar spine at T9-T10 through T11-T12. There are associated f ibrovascular and fibrofatty degenerative endplate changes along multiple endplates in the mid to lowe r lumbar spine. Marrow signal is otherwise unremarkable. The conus medullaris terminates at L1. There is normal signal in the caudal spinal cord. Paravertebral soft tissues are unremarkable. The followi ng disc levels are specifically discussed: 1910: Disc is bulging. There is moderate bilateral facet joint osteoarthritis. There is at least mild stenosis of the partially visualized neural foramina. There is mild central canal stenosis. T10-T11: Disc is bulging. There is moderate bilateral facet joint osteoarthritis. There is mild bilat eral neural foraminal stenosis. There is mild central canal stenosis. T11-T12: Disc is bulging. There is moderate bilateral facet joint osteoarthritis. There is mild right neural foraminal stenosis. There is mild central canal stenosis. T12-L1: Disc is mildly bulging. There is mild left and severe right facet joint osteoarthritis. There is no neural foraminal stenosis. There is negligible central canal stenosis. L1-L2: Disc is bulging. There is mild bilateral facet joint osteoarthritis. There is mild bilateral n eural foraminal stenosis. There is mild central canal stenosis. L2-L3: Disc is bulging with annular fissure. There is moderate bilateral facet joint osteoarthritis. There is moderate bilateral neural foraminal stenosis. There is mild central canal stenosis. L3-L4: Disc is bulging with annular fissure and superimposed disc extrusion which extends from forami nal zone to foraminal zone. This most prominent at the left foraminal zone where disc extrusion with disc material extending up to 9 mm cephalad to the level of the inferior endplate of L3 and resulting in severe left neural foraminal stenosis. There is severe bilateral facet joint osteoarthritis. Ther e is additional moderate right neural foraminal stenosis. There is mild to moderate central canal grady nosis. L4-L5: Disc is bulging with superimposed annular fissure and disc extrusion extending from foraminal zone to foraminal zone with disc material extending up to 4 mm caudal to the level of the superior en dplate of L5. There is moderate bilateral facet joint osteoarthritis. There is moderate bilateral christal ral foraminal stenosis. There is mild central canal stenosis. L5-S1: Annular fissure and disc extrusion extending from foraminal zone to foraminal zone with disc m aterial extending up to 7 mm cephalad to the level of the inferior endplate of L5. An indistinct with bilateral pars interarticularis defects or severe bilateral facet joint osteoarthritis. There is sev ere right and moderate to severe left neural foraminal stenosis. There is no central canal stenosis. IMPRESSION: 1. Severe lumbar spondylosis including disc extrusions contributing to severe neural foraminal stenos is on the left at L3-L4 and at L5-S1, severe on the right and moderate to severe on the left. 2. L5 spondylolysis with bilateral pars interarticularis defects and 6 mm anterolisthesis L5 on S1. Reviewed, dictated and finalized at location B. IMPRESSION: 1. Severe lumbar spondylosis including disc extrusions contributing to severe n eural foraminal stenosis on the left at L3-L4 and at L5-S1, severe on the right and moderate to severe on the left. 2. L5 spondylolysis with bilateral pars interarticularis defects and 6 mm anter olisthesis L5 on S1.
--- OUTSIDE RECORDS SUMMARY | 2024-05-08 08:01 | XMS_ITS | Clinical Summary ---
Author Organization [facility] Address [address] [place] [address] Phone Care Team Providers Care Equipment Superintendent Name Role Phone Najma Herrera MD Primary [...] be different from the original. Najma Herrera MD-[facility] @ Caroline Dover NP-[facility] @ Problem [...] declined 09/13/2018 How often do you attend jainism or gnosticist serv ices? 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 [facility] [address] [place] [address] Health Maintenance Due Date Last [...] complete this topic Insurance [facility] [employer] PPO Advance Directives For more information, please contact: [phone] * Full Code (Latest Code Status on File) Date Activated Date Inactivated Comments 09/13/2018 12:15 PM 09/14/2018 10:48 AM * Full Code Date Activated Date Inactivated Comments 09/13/2018 7:20 AM 09/13/2018 12:15 PM * Full Code Date Activated Date Inactivated Comments 09/13/2018 5:36 AM 09/13/2018 7:20 AM * Full Code Date Activated Date Inactivated Comments 09/02/2015 7:03 AM 09/02/2015 12:57 PM Care Teams Equipment Superintendent Relationship Specialty Start Date End Date Najma Herrera MD PCP - General Clinical Cardiac Electrophysiology 07/23/18
--- OUTSIDE RECORDS SUMMARY | 2024-05-08 08:01 | XMS_ITS | Encounter Summary ---
Author Organization [facility] Address [address] [place] [address] Care Team Providers Care Agriculture Laborer Name Role Phone None, Pcp Primary Care Provider Unavailabl e Seth Joiner MD Primary Care Provider [phone] Kofi Hart MD Unavailable [phone] Saira Bansal DROP HAMMER MECHANIC-RESPIRATORY CARE TECHNICIAN Primary Care Provider Kofi Hart MD Unavailable [phone] Encounter Details Date Type Department Care [...] on filedocumented in this encounter Care Teams Agriculture Laborer Relationship Specialty Start Date End Date None, [place] [address] PCP - General 03/19/13 04/04/13 Seth Joiner MD [address] [facility] [address] [place] [address] PCP - General Family Medicine 04/05/13 04/22/19 [place] [address] [place] [address] PCP - Attributed-[employer] Commercial 08/13/18 08/01/19 Saira Bansal, DROP HAMMER MECHANIC-RESPIRATORY CARE TECHNICIAN [address] [place] [address] PCP - General Nurse Practitioner Family 05/26/21 [place] [address] [facility] [place] [address] PCP - Attributed-[place] Commercial 04/07/17 06/14/17 documented as of this encounter
--- OUTSIDE RECORDS SUMMARY | 2024-05-08 08:01 | XMS_ITS | Clinical Summary ---
Author Organization [facility] [employer] Address [address] [place] [address] Care Team Providers Care Radiation Technician Name Role Phone Saira Bansal PAIN MEDICINE PHYSICIAN-PLUNGER MACHINE OPERATOR Primary Care Provider Source Comments [facility] [employer],non-owned Affiliates and Associated Physician Practices is amultiple site organization consisting of ambulatory clinics and hospital sitesin [place], [place], [place] and [place]. This disclosure is being madepursuant to the Care Everywhere program and may not contain all information available regarding this patient. Last updated 17.[facility] [employer] Allergies No known active allergies Medications * [...] to environmental toxic substances 02/13 Overview (04/23/2019): Line Mover Annual Physical Exam - [facility] Tobacco use Periodontal disease Osteoarthritis Eczema [...] LURIA, FLUZONE TRIVALENT; 6MO+) (IIV3) 11/27/2013,11/27/2012,12/10/2010,2009 Covid [employer]dMed primary monoval ent 12+ yr 0.3mL Purple [...] COMPREHENSIVE METABOLIC PANEL Routine 04/20/2023 7:45 AM MINE CAR DISPATCHER Annual Physical Exam [facility] LIPID PROFILE W TCHOL/HDL Routine 04/20/2023 7:45 AM MINE CAR DISPATCHER Annual Physical Exam [facility] PROSTATE SPECIFIC ANTIGEN SCREEN Routine 04/20/2023 7:45 AM MINE CAR DISPATCHER Annual Physical Exam [facility] HEPATITIS C ANTIBODY Routine 02/18/2019 7:55 AM MINE CAR DISPATCHER Annual Physical Exam [facility] from Last 3 Months or Most Recently Relevant to Health Maintenance Results * (ABNORMAL) LIPID PROFILE W TCHOL/HDL (04/20/2023 7:45 AM MINE CAR DISPATCHER) Cholesterol 179 100 - 199 mg/dL [facility] [...] BLOOD SPECIMEN / Unknown 04/20/2023 7:45 AM MINE CAR DISPATCHER 04/20/2023 Narrative Resulting Agency Comment Lab Testing performed at: [facility] [address] [id number] Esther Monteiro MD LAB - CHEMISTRY MIYA JERRY [facility] ACCOUNT BILL [address] [place] [address] * (ABNORMAL) COMPREHENSIVE METABOLIC PANEL (04/20/2023 7:45 AM MINE CAR DISPATCHER) Pathologist [facility] Glucose 158(H) 70 - 99 mg/dL [facility] [...] BLOOD SPECIMEN / Unknown 04/20/2023 7:45 AM MINE CAR DISPATCHER 04/20/2023 Narrative Resulting Agency Comment Lab Testing performed at: [facility] [address] [id number] Esther Monteiro MD LAB - CHEMISTRY MIYA JERRY [facility] ACCOUNT BILL [address] [place] [address] * PROSTATE SPECIFIC ANTIGEN SCREEN (04/20/2023 7:45 AM MINE CAR DISPATCHER) PSA 0.4 0.0 - 4.0 ng/mL [facility] ACCOUNT BILL Comment: Shama ECLIA methodology. . According to the [place] [employer], Serum PSA should decrease and [...] BLOOD SPECIMEN / Unknown 04/20/2023 7:45 AM MINE CAR DISPATCHER 04/20/2023 Narrative Resulting Agency Comment Lab Testing performed at: [employer] [facility] [facility] [place] [id number] Esther Monteiro MD LAB - CHEMISTRY MIYA JERRY Performing Organization Address City/[facility] Co de Phone Number [facility] ACCOUNT BILL [address] [place] [address] * HEPATITIS C ANTIBODY (02/18/2019 7:55 AM MINE CAR DISPATCHER) Hepatitis C Antibody 0.1 0.0 - 0.9 s/co ratio [facility] ACCOUNT BILL Comment: Negative: < 0.8 Indeterminate: 0.8 - 0.9 Positive: > 0.9 . The CDC recommends that a positive HCV antibody result be followed up with a HCV Nucleic Acid Amplification test (422161). FASTING Blood BLOOD SPECIMEN / Unknown 02/18/2019 7:55 AM MINE CAR DISPATCHER 02/19/2019 Narrative Resulting Agency Comment Lab Testing performed at: [facility] [address] [facility] [place] [id number] Kofi Hart MD LAB - CHEMISTRY MIYA JERRY Performing Organization Address City/[facility]/ZIP Co de Phone Number [facility] ACCOUNT BILL [address] [place] [address] from Last 3 Months or Most Recently Relevant to Health Maintenance Care Teams Radiation Technician Relationship Specialty Start Date End Date Saira Bansal, PAIN MEDICINE PHYSICIAN-PLUNGER MACHINE OPERATOR [address] [place] [address] PCP - General Nurse Practitioner Family 05/26/21
== END 2024-05-08 07:56 | disposition home or self-care (01) ==
PROVIDERS: PCP Nurse Practitioner Family; Visit Provider Nurse Practitioner Family
DX: M43.06 Spondylolysis, lumbar region (principal); M47.816 Spondylosis without myelopathy or radiculopathy, lumbar region; M51.26 Other intervertebral disc displacement, lumbar region; M48.061 Spinal stenosis, lumbar region without neurogenic claudication; M48.07 Spinal stenosis, lumbosacral region
CPT/HCPCS: 72148

== ENCOUNTER 2024-07-29 08:03 | Outpatient (RCR) | payer BC, SELFPAY ==
--- NOTE | 2024-07-29 08:13 | OPREHPOC ---
Outpatient Therapy Plan of Care This is a Multidisciplinary Plan of Care that may contain components documented by all disciplines (PT, OT, and ST.) PT Problem 1 PT Problem #1 Knowledge Deficit PT Goal 1 Goal / Goal Update Independent and compliant with HEP. Target Visit 4 PT Problem 2 PT Problem #2 Impaired Range of Motion PT Goal 1 Goal / Goal Update Pt to improve active lumbar extension ROM to 30 deg without increased pain/burning. Pt to improve active lumbar L lateral flexion ROM to 30 deg without increased pain/burning. Target Visit 10 PT Problem 3 PT Problem #3 Impaired Strength PT Goal 1 Goal / Goal Update Pt to improve lower abdominal strength to 4+/5 for improved lumbar spine stability. Target Visit 10 PT Problem 4 PT Problem #4 Impaired Functional Mobility PT Goal 1 Goal / Goal Update Pt to report 20% improvement on Oswestry. Pt to be able to stand for more than 15 mins without increased pain/burning. Target Visit 10
--- NOTE | 2024-07-29 08:13 | PTOPEVAL1 ---
Assessment and note entered by Jennifer Solitario, PT Evaluation Information Assessment Status Evaluation ICD-10 Condition Codes (PT) Pain in low back M54.50,Radiculopathy, lumbar region M54.16 Onset 07/24/24 Subjective Information Pt reports L sided low back pain with a burning sensation radiating into his anterior calf. He reports he got a cortisone shot last week in the back and that it helped for a day. Also reports the burning sensation is his primary symptom, states his back starts to hurt at the end of the day after he's been walking around and doing things all day. He notes he hasn't been able to exericse very much due to his back pain and symptoms, however mowing the lawn with a push mower allows him to get some activity in. He states he has to lean forward on his organ teacher as well as on shopping carts when he goes to the store, and that bending forward does not cause pain. He also reports continued pain and difficulty with his L knee following a replacement about 2 years ago, and that his knee clicks a lot and he thinks the majority of his symptoms have started and worsened after the knee replacement. Reported Pain Level Pain Score 0: Self Report Assessment PT Clinical Summary Mr. Johnson is a 64 yo male who enters the clinic with reports of low back pain with burning sensation radiating into the L leg. He demonstrates limitations in active lumbar extension and L side bending ROM along with worsened burning sensation with these movements. His LE strength is grossly normal but he demonstrates abdominal weakness, and also demonstrates positive slump test on the L leg indicating possible lumbar radiculopathy. He will benefit from skilled PT intervention to improve deficits to be able to return to daily functional activities with less disability. Plan of Care Interventions Electrical Stimulation,Gait Training,Hot Pack/Cold Pack,Manual Therapy,Neuro Re-education,Patient/ Caregiver Education,Therapeutic Activities, Therapeutic Exercise,Self-Care/Home Management PT Services Indicated Yes Treatment Frequency and 2x/week for 10 visits Duration These treatments will address the objective and functional deficits as defined above. The patient will be advanced safely and appropriately in order for the patient to progress towards his/her prior level of function. Additional exercises will be introduced and as well as a comprehensive home exercise program upon discharge, if needed, ?to ensure carryover of functional gains achieved in the clinic. This treatment plan has been reviewed and agreement upon by the patient.
--- NOTE | 2024-09-05 16:27 | PTOPDC ---
Assessment and note entered by Jennifer Solitario, PT Evaluation Information Assessment Status Discharge - Pt Not Present ICD-10 Condition Codes (PT) Pain in low back M54.50,Radiculopathy, lumbar region M54.16 Onset 07/24/24 Subjective Information See below Assessment PT Clinical Summary Mr. Johnson attended 3 skilled PT visits addressing low back pain with radicular symptoms. Upon chart review pt performed well in therapy visits and had minimal pain but also had subjective reports of worse pain in the evenings that prevents him from being able to walk. Pt was scheduled for a doctor appointment after his most recent visit, and per pt on the phone he and his doctor decided to use other options of pain relief and that pt was cleared to discharge from therapy . Plan of Care PT Services Indicated No
== END 2024-08-07 20:00 | disposition home or self-care (01) ==
LOC: CHSPT 08:03
PROVIDERS: Visit Provider Pain Medicine Pain Medicine
DX: M54.16 Radiculopathy, lumbar region (principal)
CPT/HCPCS: 97110; 97112; 97161; 97530

== ENCOUNTER 2024-09-07 09:02 | Outpatient (CLI) | payer BC, SELFPAY ==
--- NOTE | ~2024-09-07 | CT_ITS ---
EXAMINATION: CT lumbar spine wo con DATE: 09/07/2024 09:35 INDICATION: Postlaminectomy syndrome TECHNIQUE: Computed tomography (CT) of the lumbar spine was performed without intravenous contrast. T he dose-length product was 515.19 mGy-cm. COMPARISON: None FINDINGS: 5 degrees lumbar dextrocurvature. 2 mm anterolisthesis L3 on L4. L5 spondylolysis with bilateral pars interarticularis defects and 5 mm anterolisthesis L5 on S1. Vertebral body heights are normal. Sever e disc height loss with degenerative endplate changes at L3-L4 through L5-S1. Moderate disc height lo ss at L2-L3 and mild disc height loss at T11-T12 and L1-L2. Paravertebral soft tissues are unremarkab le. The following disc levels are specifically discussed: T12-L1: The disc does not extend beyond the endplate margin. There is mild left and moderate right fa cet joint osteoarthritis. There is no neural foraminal stenosis. There is no central canal stenosis. L1-L2: Disc is bulging. There is moderate right and mild to moderate left facet joint osteoarthritis. There is mild bilateral neural foraminal stenosis. There is mild central canal stenosis. L2-L3: Disc is bulging. There is mild bilateral facet joint osteoarthritis. There is moderate right a nd mild to moderate left neural foraminal stenosis. There is mild to moderate central canal stenosis. L3-L4: Disc is bulging. There is mild bilateral facet joint osteoarthritis. There is moderate to mirna re left and mild to moderate right neural foraminal stenosis. There is mild to moderate central canal stenosis. L4-L5: Disc is bulging. There is mild left and moderate right facet joint osteoarthritis. There is mo derate bilateral neural foraminal stenosis. There is mild central canal stenosis. L5-S1: Disc does not extend beyond the more posterior S1 endplate margin. There is moderate bilateral facet joint osteoarthritis and bilateral pars interarticularis defects. There is moderate to severe bilateral neural foraminal stenosis. There is no central canal stenosis. IMPRESSION: 1. L5 spondylolysis with bilateral pars interarticularis defects and 5 mm anterolisthesis on S1. 2. Severe lumbar spondylosis. Reviewed, dictated and finalized at location A. IMPRESSION: 1. L5 spondylolysis with bilateral pars interarticularis defects and 5 mm anter olisthesis on S1. 2. Severe lumbar spondylosis.
--- OUTSIDE RECORDS SUMMARY | 2024-09-07 09:05 | XMS_ITS | Clinical Summary ---
Author Organization [facility] Address [address] [place] [address] Care Team Providers Care Table Machine Operator Name Role Phone Saira Bansal SALESMAN/OWNER-CERTIFIED COURT INTERPRETER Primary Care Provider Source Comments [facility],non-owned Affiliates and Associated Physician Practices is amultiple site organization consisting of ambulatory clinics and hospital sitesin [place], [place], [place] and [place]. This disclosure is being madepursuant to the Care Everywhere program and may not contain all information available regarding this patient. Last updated 17.[facility] Allergies No known active allergies Medications * Be aware that medications may not be up to date on this document. Alwaysverify current medications with the patient. indomethacin (INDOCIN) 50 MG capsule Take 1 [...] to environmental toxic substances 02/13 Overview (04/23/2019): Assisted Living Housekeeper Annual Physical Exam - [facility] Tobacco use Periodontal disease Osteoarthritis Eczema Resolved [...] routine chest x-ray 03/22/2016 Overview (07/07/2014): Immunizations Immunization Administration Dates Next Due INFLUENZA VACCINE, TRIV. 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 Not on file Not on file Last Filed Vital Signs [...] 9:05 AM CDT Height 170.2 cm (5' 7) 05/19/2023 9:05 AM CDT Body Mass Index [...] 2010 ZOSTER VACCINE (1 of 2) 2010 FIT - COLON CA SCREENING 02/13/2022 022 (Done Outside Per Report) COVID-19 VACCINE (3 - 2023- season) 2023 03/25/2020, 03/07/2020 COLONOSCOPY - COLON CA SCREENING 02/14/2024 02/13/2014 (Done Outside Per Report) Colorectal Cancer Screening 02/14/2024 DEPRESSION SCREENING 02/14/2024 PROSTATE CA SCREENING 04/19/2024 04/20/2023 , 05/19/2022, 05/06/2021, Additional history exists INFLUENZA VACCINE (#1) 2024 4, 12/09/2021, 01/04/2021, Additional history exists SCREENING FOR DIABETES 04/19/2026 4, 04/20/2023, 05/19/2022, Additional history exists LIPID TESTING 04/19/2028 04/20/2023, 04/0 07/2022, 05/06/2021, Additional history exists DTAP/TDAP/TD VACCINES (3 - Td or Tdap) 04/22/2029 04/23/2019, 02/13/2005 Respiratory Syncytial Virus (RSV) Vaccine Pt: or over 60 yrs (1 - 1-dose 75+ series) 05/31/2035 HEPATITIS C SCREENING Completed 02/18/2019 HIB VACCINE [...] COMPREHENSIVE METABOLIC PANEL Routine 04/20/2023 7:45 AM REGIONAL RECRUITER Annual Physical Exam [facility] LIPID PROFILE W TCHOL/HDL Routine 04/20/2023 7:45 AM REGIONAL RECRUITER Annual Physical Exam [facility] PROSTATE SPECIFIC ANTIGEN SCREEN Routine 04/20/2023 7:45 AM REGIONAL RECRUITER Annual Physical Exam [facility] HEPATITIS C ANTIBODY Routine 02/18/2019 7:55 AM REGIONAL RECRUITER Annual Physical Exam [facility] from Last 3 Months or Most Recently Relevant to Health Maintenance Results * (ABNORMAL) LIPID PROFILE W TCHOL/HDL (04/20/2023 7:45 AM REGIONAL RECRUITER) Cholesterol 179 100 - 199 mg/dL [facility] [...] BLOOD SPECIMEN / Unknown 04/20/2023 7:45 AM REGIONAL RECRUITER 04/20/2023 Narrative Resulting Agency Comment Lab Testing performed at: [facility] [phone] us Esther Monteiro MD LAB - CHEMISTRY ORDERABLES Madonna l Result [facility] ACCOUNT BILL [address] [place] [address] * (ABNORMAL) COMPREHENSIVE METABOLIC PANEL (04/20/2023 7:45 AM REGIONAL RECRUITER) Glucose 158(H) 70 - 99 mg/dL [facility] [...] BLOOD SPECIMEN / Unknown 04/20/2023 7:45 AM REGIONAL RECRUITER 04/20/2023 Narrative Resulting Agency Comment [facility] [address] [facility] [id number] us Esther Monteiro MD LAB - CHEMISTRY ORDERABLES Madonna l Result [facility] ACCOUNT BILL [address] [place] [address] * PROSTATE SPECIFIC ANTIGEN SCREEN (04/20/2023 7:45 AM REGIONAL RECRUITER) PSA 0.4 0.0 - 4.0 ng/mL [facility] ACCOUNT BILL Comment: Shama ECLIA methodology. . According to the [place] [employer], Serum PSA should decrease and [...] BLOOD SPECIMEN / Unknown 04/20/2023 7:45 AM REGIONAL RECRUITER 04/20/2023 Narrative Resulting Agency Comment Lab Testing performed at: [facility] [place] [phone] us Esther Monteiro MD LAB - CHEMISTRY ORDERABLES Madonna l Result Performing Organization Address City/[facility]/ZIP Co de Phone Number [facility] ACCOUNT BILL [address] [place] [address] * HEPATITIS C ANTIBODY (02/18/2019 7:55 AM REGIONAL RECRUITER) Hepatitis C Antibody 0.1 0.0 - 0.9 s/co ratio [facility] ACCOUNT BILL Comment: Negative: < 0.8 Indeterminate: 0.8 - 0.9 Positive: > 0.9 . The CDC recommends that a positive HCV antibody result be followed up with a HCV Nucleic Acid Amplification test (248447). FASTING Blood BLOOD SPECIMEN / Unknown 02/18/2019 7:55 AM REGIONAL RECRUITER 02/19/2019 Narrative Resulting Agency Comment Lab Testing performed at: [facility] [address] [facility] [phone] us Kofi Hart MD LAB - CHEMISTRY ORDERABLES Fi nal Result Performing Organization Address City/[facility]/ZIP Co de Phone Number [facility] ACCOUNT BILL [address] [place] [address] from Last 3 Months or Most Recently Relevant to Health Maintenance Care Teams Table Machine Operator Relationship Specialty Start Date End Date Saira Bansal, SALESMAN/OWNER-CERTIFIED COURT INTERPRETER [address] [place] [phone] PCP - General Nurse Practitioner Family 05/26/21
--- OUTSIDE RECORDS SUMMARY | 2024-09-07 09:05 | XMS_ITS | Clinical Summary ---
Author Organization [facility] Address [address] [place] [address] Phone Care Team Providers Care Auto Bumper Mechanic Name Role Phone Unavailable Primary Care Provider Unavailabl e Medications misoprostol (CYTOTEC) 200 mcg tablet Take [...] be different from the original. Najma Herrera MD-[facility] @ Caroline Dover NP-[facility] @ Problem Noted Date [...] drink = 0.6 oz pu re alcohol) Sex and Gender Information Value Date Recorded Sex Assigned at Not on file Legal Sex Male 10:02 AM CDT Gender Identity Not on file Sexual Orientation Not on file Last Filed Vital Signs Vital Sign Reading Time Taken Comments Blood Pressure 132/70 08/23/2023 8:42 AM CDT Pulse 64 08/23/2023 8:42 AM CDT Temperature 36.3 C (97.4 F) 04/23/2020 8:02 AM TENTERING MACHINE FEEDER Respiratory Rate 16 09/14/2018 5:05 AM CDT Oxygen Saturation 97% 08/23/2023 8:42 AM CDT Inhaled Oxygen Concentration - - Weight 81.6 kg (180 lb) 08/23/2023 8:42 AM CDT Height 170.2 cm (5' 7) 08/23/2023 8:42 AM CDT Body Mass Index 28.19 08/23/2023 8:42 AM CDT Plan of Treatment Upcoming Encounters Date Type Department Care Team (Late st Contact Info) Description 09/10/2024 8:00 AM CDT Office Visit [facility] At [facility] [address] [place] [address] Chano Machuca MD [facility] [address] [facility] [address] [place] [address] Health Maintenance Due Date Last Done Comments FIT-DNA Q 3 years 2005 FIT/FOBT Q 1 year 2005 Flex Sig/CT Colonography Q 5 years 2005 ZOSTER VACCINE (1 of 2) 2010 COLORECTAL SCREENING 09/01/2018 09/02/2015, 09/02/19 16 Colorectal Cancer Screening 09/01/2018 COVID-19 Vaccine (3 - 2023-2 5 season) 2023 03/25/2020, 03/07/2020 INFLUENZA VACCINE (#1) 2024 2, 12/02/2019, 11/12/2018, Additional history exists DTAP/TDAP/TD VACCINES (2 - T d or Tdap) 04/22/2029 04/23/2019 RSV VACCINE (60+ or ) (1 - 1-dose 75+ series) 05/31/2035 Insurance [facility] [employer] PPO Advance Directives For more information, please contact: [phone] * Full Code (Latest Code Status on [...]
--- OUTSIDE RECORDS SUMMARY | 2024-09-07 09:05 | XMS_ITS | Encounter Summary ---
Author Organization [facility] Address [address] [place] [address] Care Team Providers Care Document Management Analyst Name Role Phone None, Pcp Primary Care Provider Unavailabl e Seth Joiner MD Primary Care Provider [phone] Kofi Hart MD Unavailable [phone] Saira Bansal CORRECTION OFFICER PENITENTIARY-WIRELESS MANAGER Primary Care Provider Kofi Hart MD Unavailable [phone] Encounter Details Date Type Department Care [...] on file Legal Sex Male 7:11 AM PRIVATE TUTORS AND TEACHERS Gender Identity Not on file Sexual Orientation Not on file documented as of this encounter Plan of Treatment Not on file documented as of this encounter Visit Diagnoses Not on filedocumented in this encounter Care Teams Document Management Analyst Relationship Specialty Start Date End Date None, [place] [address] PCP - General 03/19/13 04/04/13 Seth Joiner MD [address] [facility] [address] [place] [address] PCP - General Family Medicine 04/05/13 04/22/19 [place] [address] [facility] [place] [address] PCP - Attributed-[employer] Commercial 08/13/18 08/01/19 Saira Bansal, CORRECTION OFFICER PENITENTIARY-WIRELESS MANAGER [address] [place] [address] PCP - General Nurse Practitioner Family 05/26/21 [place] [address] [place] [address] PCP - Attributed-[place] Commercial 04/07/17 06/14/17 documented as of this encounter
== END 2024-09-07 09:03 | disposition home or self-care (01) ==
PROVIDERS: Visit Provider Nurse Practitioner Adult Health
DX: M96.1 Postlaminectomy syndrome, not elsewhere classified (principal); M47.896 Other spondylosis, lumbar region
CPT/HCPCS: 72131

== ENCOUNTER 2024-09-09 09:26 | Outpatient (CLI) | payer BC, SELFPAY ==
--- NOTE | ~2024-09-09 | XR_ITS ---
XR lumbar spine min 4V 09/09/2024 09:49 Indication: Back pain Procedure: 5 views lumbar spine Comparison: 04/22/2024 Findings: No fracture, subluxation or dislocation. There is severe disc narrowing at all lumbar level s. There is grade 1 spondylolisthesis at L5-S1 secondary to spondylolysis. No acute fracture or traum atic malalignment. There is been progression of degenerative change at L5-S1 with near complete oblit eration of disc space. Pedicles intact. Sacral foramen are symmetric. Impression: 1: Progression of severe lumbar spondylosis most advanced at L5-S1 with associated grade 1 spondyloli sthesis at this level. Reviewed, dictated and finalized at location A. Impression: 1: Progression of severe lumbar spondylosis most advanced at L5-S1 with associa samantha grade 1 spondylolisthesis at this level.
--- OUTSIDE RECORDS SUMMARY | 2024-09-09 09:52 | XMS_ITS | Clinical Summary ---
Author Organization [facility] Address [address] [place] [address] Phone Care Team Providers Care Technical Trainer Name Role Phone Unavailable Primary Care Provider [...] be different from the original. Najma Herrera MD-[facility] and Vascular @ Caroline Dover NP-[facility] V[facility] @ Problem [...] 36.3 C (97.4 F) 04/23/2020 8:02 AM PRODUCT SUPPORT TECHNICIAN Respiratory Rate 16 09/14/2018 5:05 AM CDT [...] Description 09/10/2024 8:00 AM CDT Office Visit [facility] V[facility] At [facility] [address] [facility] [address] [place] [address] Chano Machuca MD [address] [facility] [address] [place] [address] Health Maintenance Due Date Last Done Comments FIT-DNA Q 3 years 2005 FIT/FOBT Q 1 year 2005 Flex Sig/CT Colonography Q 5 years 2005 ZOSTER VACCINE (1 of 2) 2010 COLORECTAL SCREENING 09/01/2018 09/02/2015, 09/02/19 Colorectal Cancer Screening 09/01/2018 COVID-19 Vaccine (3 2023-2 5 season) 2023 03/25/2020, 03/07/2020 Preventative Visit- Commercial 02/14/2024 0 05/25/2021, 03/25/2020, 06/28/2018 INFLUENZA VACCINE (#1) 2024 2, 12/02/2019, 11/12/2018, Additional history exists DTAP/TDAP/TD VACCINES (2 - T d or Tdap) 04/22/2029 04/23/2019 RSV VACCINE (60+ or ) (1 - 1-dose 75+ series) 05/31/2035 Insurance [facility] [employer] PPO Advance Directives For more information, please contact: [phone] * Full Code (Latest Code Status on [...]
--- OUTSIDE RECORDS SUMMARY | 2024-09-09 09:52 | XMS_ITS | Clinical Summary ---
Author Organization [facility] Address [address] [place] [address] Care Team Providers Care Optics Manufacturing Technician Name Role Phone Saira Bansal RECRUITER-MEDICAL INFORMATION SPECIALIST Primary Care Provider Source Comments [facility],non-owned Affiliates and Associated Physician Practices is amultiple site organization consisting of ambulatory clinics and hospital sitesin [place], [place] and [place]. This disclosure is being madepursuant to the Care Everywhere program and may not contain all information available regarding this patient. 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 Annual Physical Exam - [facility] Tobacco use Periodontal disease Osteoarthritis [...] LURIA, FLUZONE TRIVALENT; 6MO+) (IIV3) 11/27/2013,11/27/2012,12/10/2010,2009 Covid [employer] primary monoval ent 12+ yr 0.3mL Purple [...] on file Legal Sex Male 7:11 AM ENDOCRINOLOGY NURSE Gender Identity Not on file Sexual Orientation [...] COMPREHENSIVE METABOLIC PANEL Routine 04/20/2023 7:45 AM ENDOCRINOLOGY NURSE Annual Physical Exam [facility] LIPID PROFILE W TCHOL/HDL Routine 04/20/2023 7:45 AM ENDOCRINOLOGY NURSE Annual Physical Exam [facility] PROSTATE SPECIFIC ANTIGEN SCREEN Routine 04/20/2023 7:45 AM ENDOCRINOLOGY NURSE Annual Physical Exam [facility] HEPATITIS C ANTIBODY Routine 02/18/2019 7:55 AM ENDOCRINOLOGY NURSE Annual Physical Exam [facility] from Last 3 Months or Most Recently Relevant to Health Maintenance Results * (ABNORMAL) LIPID PROFILE W TCHOL/HDL (04/20/2023 7:45 AM ENDOCRINOLOGY NURSE) Cholesterol 179 100 - 199 mg/dL [facility] [...] BLOOD SPECIMEN / Unknown 04/20/2023 7:45 AM ENDOCRINOLOGY NURSE 04/20/2023 Narrative Resulting Agency Comment Lab Testing performed at: [address] [phone] us Esther Monteiro MD LAB - CHEMISTRY ORDERABLES Madonna l Result [facility] ACCOUNT BILL [address] [place] [address] * (ABNORMAL) COMPREHENSIVE METABOLIC PANEL (04/20/2023 7:45 AM ENDOCRINOLOGY NURSE) Glucose 158(H) 70 - 99 mg/dL [facility] [...] BLOOD SPECIMEN / Unknown 04/20/2023 7:45 AM ENDOCRINOLOGY NURSE 04/20/2023 Narrative Resulting Agency Comment [facility] [address] [facility] [phone] us Esther Monteiro MD LAB - CHEMISTRY ORDERABLES Madonna l Result [facility] ACCOUNT BILL [address] [place] [address] * PROSTATE SPECIFIC ANTIGEN SCREEN (04/20/2023 7:45 AM ENDOCRINOLOGY NURSE) PSA 0.4 0.0 - 4.0 ng/mL [facility] ACCOUNT BILL Comment: Shama ECLIA methodology. . According to the [place] [employer], Serum PSA should decrease and [...] BLOOD SPECIMEN / Unknown 04/20/2023 7:45 AM ENDOCRINOLOGY NURSE 04/20/2023 Narrative Resulting Agency Comment Lab Testing performed at: [facility] [employer] [place] [phone] us Esther Monteiro MD LAB - CHEMISTRY ORDERABLES Madonna l Result Performing Organization Address City/[facility]/ZIP Co de Phone Number [facility] ACCOUNT BILL [address] [place] [address] * HEPATITIS C ANTIBODY (02/18/2019 7:55 AM ENDOCRINOLOGY NURSE) Hepatitis C Antibody 0.1 0.0 - 0.9 s/co ratio [facility] ACCOUNT BILL Comment: Negative: < 0.8 Indeterminate: 0.8 - 0.9 Positive: > 0.9 . The CDC recommends that a positive HCV antibody result be followed up with a HCV Nucleic Acid Amplification test (587991). FASTING Blood BLOOD SPECIMEN / Unknown 02/18/2019 7:55 AM ENDOCRINOLOGY NURSE 02/19/2019 Narrative Resulting Agency Comment Lab Testing performed at: [facility] [address] [facility] [phone] us Kofi Hart MD LAB - CHEMISTRY ORDERABLES Fi nal Result Performing Organization Address City/[facility]/ZIP Co de Phone Number [facility] ACCOUNT BILL [address] [place] [address] from Last 3 Months or Most Recently Relevant to Health Maintenance Care Teams Optics Manufacturing Technician Relationship Specialty Start Date End Date Saira Bansal, RECRUITER-MEDICAL INFORMATION SPECIALIST [address] [place] [address] PCP - General Nurse Practitioner Family 05/26/21
--- OUTSIDE RECORDS SUMMARY | 2024-09-09 09:53 | XMS_ITS | Encounter Summary ---
Author Organization [facility] Address [address] 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 HELPER Gender Identity Not on file Sexual Orientation Not on file documented as of this encounter Plan of Treatment Not on file documented as of this encounter Visit Diagnoses Not on filedocumented in this encounter Care Teams Banker Mason Relationship Specialty Start Date End Date None, Pcp [place] [address] PCP - General 03/19/13 04/04/13 Seth Joiner MD [address] [facility] [address] [place] [address] PCP - General Family Medicine 04/05/13 04/22/19 [place] [address] [facility] [place] [address] PCP - Attributed-[employer] Commercial 08/13/18 08/01/19 Saira Bansal, SOFTWARE QUALITY ASSURANCE ANALYST-CUTTER WOODWIND REEDS [address] [place] [address] PCP - General Nurse Practitioner Family 05/26/21 [place] [address] [address] [place] [address] PCP - Attributed-[employer] 04/07/17 06/14/17 documented as of this encounter
== END 2024-09-09 09:27 | disposition home or self-care (01) ==
LOC: CHSIMG 09:32
PROVIDERS: PCP Nurse Practitioner Family; Visit Provider Nurse Practitioner Adult Health
DX: M96.1 Postlaminectomy syndrome, not elsewhere classified (principal); M43.06 Spondylolysis, lumbar region
CPT/HCPCS: 72110

== ENCOUNTER 2024-09-23 09:40 | Outpatient (CLI) | payer BC, SELFPAY ==
--- NOTE | 2024-09-23 09:43 | ECG_ITS ---
Test Date: 2024-09-23 09:55:01 Measurements Intervals [place] Rate: 60 P: 44 RI: 150 QRS: -30 QRSD: 112 T: 12 QT: 399 QTc: 399 Interpretive Statements SINUS RHYTHM INCOMPLETE RIGHT BUNDLE BRANCH BLOCK BASELINE ARTIFACT- I, II, III, AVR, AVL, AVF BORDERLINE ECG No previous ECG available for comparison Electronically Signed On 09-23-2024 09:58:13 CDT by Raymon Reaves D.O.
--- OUTSIDE RECORDS SUMMARY | 2024-09-23 09:46 | XMS_ITS | Clinical Summary ---
Author Organization [facility] [employer] Address [address] [place] [address] Care Team Providers Care Composition Mixer Name Role Phone Saira Bansal EXHIBIT ARTIST-JIG HAND Primary Care Provider Source Comments [facility] [employer],non-owned Affiliates and Associated Physician Practices is amultiple site organization consisting of ambulatory clinics and hospital sitesin [place], [place], [place] and [place]. This disclosure is being madepursuant to the Care Everywhere program and may not contain all information available regarding this patient. 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 Annual Physical Exam - [facility] Tobacco use Periodontal disease Osteoarthritis [...] LURIA, FLUZONE TRIVALENT; 6MO+) (IIV3) 11/27/2013,11/27/2012,12/10/2010,2009 Covid Ringly primary monoval ent 12+ yr 0.3mL Purple [...] on file Legal Sex Male 7:11 AM KEY ACCOUNT DIRECTOR Gender Identity Not on file Sexual Orientation [...] COMPREHENSIVE METABOLIC PANEL Routine 04/20/2023 7:45 AM KEY ACCOUNT DIRECTOR Annual Physical Exam [facility] LIPID PROFILE W TCHOL/HDL Routine 04/20/2023 7:45 AM KEY ACCOUNT DIRECTOR Annual Physical Exam [facility] PROSTATE SPECIFIC ANTIGEN SCREEN Routine 04/20/2023 7:45 AM KEY ACCOUNT DIRECTOR Annual Physical Exam [facility] HEPATITIS C ANTIBODY Routine 02/18/2019 7:55 AM KEY ACCOUNT DIRECTOR Annual Physical Exam [facility] from Last 3 Months or Most Recently Relevant to Health Maintenance Results * (ABNORMAL) LIPID PROFILE W TCHOL/HDL (04/20/2023 7:45 AM KEY ACCOUNT DIRECTOR) Cholesterol 179 100 - 199 mg/dL [facility] [...] BLOOD SPECIMEN / Unknown 04/20/2023 7:45 AM KEY ACCOUNT DIRECTOR 04/20/2023 Narrative Resulting Agency Comment Lab Testing performed at: [address] [id number] us Esther Monteiro MD LAB - CHEMISTRY ORDERABLES Madonna l Result [facility] ACCOUNT BILL [address] [place] [address] * (ABNORMAL) COMPREHENSIVE METABOLIC PANEL (04/20/2023 7:45 AM KEY ACCOUNT DIRECTOR) Glucose 158(H) 70 - 99 mg/dL [facility] [...] BLOOD SPECIMEN / Unknown 04/20/2023 7:45 AM KEY ACCOUNT DIRECTOR 04/20/2023 Narrative Resulting Agency Comment [facility] [address] [facility] [phone] us Esther Monteiro MD LAB - CHEMISTRY ORDERABLES Madonna l Result [facility] ACCOUNT BILL [address] [place] [address] * PROSTATE SPECIFIC ANTIGEN SCREEN (04/20/2023 7:45 AM KEY ACCOUNT DIRECTOR) PSA 0.4 0.0 - 4.0 ng/mL [facility] ACCOUNT BILL Comment: Shama ECLIA methodology. . According to the [place] [employer], Serum PSA should decrease and [...] BLOOD SPECIMEN / Unknown 04/20/2023 7:45 AM KEY ACCOUNT DIRECTOR 04/20/2023 Narrative Resulting Agency Comment Lab Testing performed at: [facility] [employer] [place] [id number] us Esther Monteiro MD LAB - CHEMISTRY ORDERABLES Maodnna l Result Performing Organization Address City/[facility]/ZIP Co de Phone Number [facility] ACCOUNT BILL [address] [place] [address] * HEPATITIS C ANTIBODY (02/18/2019 7:55 AM KEY ACCOUNT DIRECTOR) Hepatitis C Antibody 0.1 0.0 - 0.9 s/co ratio [facility] ACCOUNT BILL Comment: Negative: < 0.8 Indeterminate: 0.8 - 0.9 Positive: > 0.9 . The CDC recommends that a positive HCV antibody result be followed up with a HCV Nucleic Acid Amplification test (326123). FASTING Blood BLOOD SPECIMEN / Unknown 02/18/2019 7:55 AM KEY ACCOUNT DIRECTOR 02/19/2019 Narrative Resulting Agency Comment Lab Testing performed at: [facility] [address] [facility] [phone] us Kofi Hart MD LAB - CHEMISTRY ORDERABLES Fi nal Result Performing Organization Address City/[facility]/ZIP Co de Phone Number [facility] ACCOUNT BILL [address] [place] [address] from Last 3 Months or Most Recently Relevant to Health Maintenance Care Teams Composition Mixer Relationship Specialty Start Date End Date Saira Bansal, EXHIBIT ARTIST-JIG HAND [address] [place] [phone] PCP - General Nurse Practitioner Family 05/26/21
--- OUTSIDE RECORDS SUMMARY | 2024-09-23 09:46 | XMS_ITS | Encounter Summary ---
Author Organization [facility] Address [address] [place] [address] Care Team Providers Care Offset Printing Pressmen Name Role Phone None, Pcp Primary Care Provider Unavailabl e Seth Joiner MD Primary Care Provider [phone] Kofi Hart MD Unavailable [phone] Saira Bansal ACADEMIC ASSISTANT-MEDTRONICS TECHNICIAN Primary Care Provider Kofi Hart MD Unavailable [phone] Encounter Details Date Type Department Care [...] on file Legal Sex Male 7:11 AM AUTOCAD Gender Identity Not on file Sexual Orientation Not on file documented as of this encounter Plan of Treatment Not on file documented as of this encounter Visit Diagnoses Not on filedocumented in this encounter Care Teams Offset Printing Pressmen Relationship Specialty Start Date End Date None, [place] [address] PCP - General 03/19/13 04/04/13 Seth Joiner MD [address] [facility] [address] [place] [address] PCP - General Family Medicine 04/05/13 04/22/19 [place] [address] [place] [place] [address] PCP - Attributed-[employer] Commercial 08/13/18 08/01/19 Saira Bansal, ACADEMIC ASSISTANT-MEDTRONICS TECHNICIAN [address] [place] [address] PCP - General Nurse Practitioner Family 05/26/21 [place] [address] [place] [address] PCP - Attributed-[employer] 04/07/17 06/14/17 documented as of this encounter
--- OUTSIDE RECORDS SUMMARY | 2024-09-23 09:46 | XMS_ITS | Clinical Summary ---
Author Organization [facility] Address [address] [place] [address] Phone Care Team Providers Care Restaurant Bartender Name Role Phone Unavailable Primary Care Provider Unavailabl e Allergies No known active allergies Medications misoprostol (CYTOTEC) 200 mcg tablet Take 200 mcg by mouth 4 times daily. Active CETIRIZINE HCL (ZYRTEC ORAL) Take by mouth. A ctive indomethacin (INDOCIN) 50 mg capsule 6 Active ibuprofen (MOTRIN) 200 mg tablet Take 200 mg by mouth every 6 hours as needed for Pain, Mild Takes up to 5 tabs per day . Active CIALIS 20 mg tablet TK 1 T PO QD PRN 0 9 Active lisinopriL (PRINIVIL) 20 mg tablet Take 1 Tablet (20 mg) by mouth daily. 90 Tablet 3 0 Active metFORMIN (GLUCOPHAGE) 500 mg tablet 500 mg daily with breakfast. 0 Active aspirin (TAMIKA) 325 mg tablet Take 1 Tablet (325 mg) by mouth daily. 30 Tablet 11 1 Active Additional Information Patient not taking.Reported on 09/10/2024 montelukast (SINGULAIR) 5 mg Tablet, Chewable Take 5 mg by mouth daily. Active sildenafiL 50 mg tablet Take 50 mg by mouth 1 time daily as needed. 2 Active INDOMETHACIN ORAL Take by mouth. Activ e Active Problems Patient Care Coordination No te Formatting of this note migh t be different from the original. Najma Herrera MD-[facility] @ Caroline Dover NP-[facility] @ Problem Noted Date Diagnosed Date Preop cardiovascular exam 08/17/2022 Arthritis 08/17/2022 Essential hypertension 10/22/2019 SVT (supraventricular tachycardia) 07/11/2018 Pure hypercholesterolemia 07/04/2017 Paroxysmal atrial fibrillation 09/08/2015 Encounters Date Type Department Care Team Description 09/10/2024 8:00 AM CDT Office Visit [facility] At [address] [place] [address] Chano Machuca MD Paroxysmal atrial fibrillation (CMS/HCC) (Primary Dx); Essential hypertension; Pure hypercholesterolemia; Preop cardiovascular exam from Last 3 Months Family History Medical History Relation Name Comments [...] Sign Reading Time Taken Comments Blood Pressure 140/74 09/10/2024 7:44 AM CDT Pulse 58 09/10/2024 7:44 AM CDT Temperature 36.3 C (97.4 F) 04/23/2020 8:02 AM WIRE WELDER Respiratory Rate 16 09/14/2018 5:05 AM CDT Oxygen Saturation 97% 09/10/2024 7:44 AM CDT Inhaled Oxygen Concentration - - Weight 81.2 kg (179 lb) 09/10/2024 7:44 AM CDT Height 170.2 cm (5' 7) 09/10/2024 7:44 AM CDT Body Mass Index 28.04 09/10/2024 7:44 AM CDT Plan of Treatment Upcoming Encounters Date Type Department Care Team (Late st Contact Info) Description 09/12/2025 8:00 AM CDT Office Visit [facility] At [address] [place] [address] Chano Machuca MD [address] [facility] [address] [place] [address] Health Maintenance Due Date Last Done Comments Pre-Diabetes and Diabetes Screening 1960 FIT-DNA Q 3 years 2005 FIT/FOBT Q 1 year 2005 Flex Sig/CT Colonography Q 5 years 2005 ZOSTER VACCINE (1 of 2) 2010 COLORECTAL SCREENING 09/01/2018 09/02/2015, 09/02/19 16 Colorectal Cancer Screening 09/01/2018 COVID-19 Vaccine (2023-2 5 season) 2023 03/25/2020, 03/07/2020 INFLUENZA VACCINE (#1) 2024 2, 12/02/2019, 11/12/2018, Additional history exists DTAP/TDAP/TD VACCINES (2 - T d or Tdap) 04/22/2029 04/23/2019 RSV VACCINE (60+ or ) (1 - 1-dose 75+ series) 05/31/2035 Advance Directives For more information, please contact: [phone] * Full Code (Latest Code Status on [...]
== END 2024-09-23 09:41 | disposition home or self-care (01) ==
LOC: CHSCARD 09:41
PROVIDERS: PCP Nurse Practitioner Family; Visit Provider Nurse Practitioner Family
DX: R03.0 Elevated blood-pressure reading, without diagnosis of hypertension (principal); I45.10 Unspecified right bundle-branch block
CPT/HCPCS: 93005

== ENCOUNTER 2024-10-07 09:37 | Outpatient (CLI) | payer BC, SELFPAY ==
--- NOTE | 2024-10-07 10:03 | ECG_ITS ---
Test Date: 2024-10-07 10:15:45 Measurements Intervals [place] Rate: 60 P: 62 AR: 138 QRS: -30 QRSD: 110 T: 12 QT: 400 QTc: 401 Interpretive Statements SINUS RHYTHM INCOMPLETE RIGHT BUNDLE BRANCH BLOCK BORDERLINE ECG Compared to ECG 09/23/2024 09:55:01 NO SIGNIFICANT CHANGE Electronically Signed On 10-07-2024 10:32:36 CDT by Raymon Reaves D.O.
[2024-10-07 10:13] LABS: Hematocrit 51.5 % (40.0-54.0); Hemoglobin 16.8 g/dL (14.0-18.0); Immature Granulocyte Percent A 0.4 % (0.0-0.0); Lymphocytes Absolute Auto 1.56 K/mm3 (1.10-4.50); Mean Corpuscular HGB Conc 32.6 g/dL (32-36); Mean Corpuscular Hemoglobin 29.1 pg (27.0-31.0); Mean Corpuscular Volume 89.1 fL (78.0-102.0); Nucleated Red Blood Cells Absolute Auto 0.00 K/mm3 (0.00-0.00); Nucleated Red Blood Cells Perc 0.0 % (0-0.0); Platelet Count Result 218 K/mm3 (150-420); Red Blood Count 5.78 M/mm3 (4.70-6.10); White Blood Count 8.2 K/mm3 (4.8-10.8)
--- OUTSIDE RECORDS SUMMARY | 2024-10-07 10:20 | XMS_ITS | Clinical Summary ---
Author Organization [facility] Address [address] [place] [address] Care Team Providers Care Hay Chopper Name Role Phone Saira Bansal MANAGER WEALTH MANAGEMENT-DEPUTY CLERK Primary Care Provider Source Comments [facility],non-owned Affiliates and Associated Physician Practices is amultiple site organization consisting of ambulatory clinics and hospital sitesin [place], [place], [place] and [place]. This disclosure is being madepursuant to the Care Everywhere program and may not contain all information available regarding this patient. Last updated 17.[facility] Allergies No known active allergies Medications * [...] to environmental toxic substances 02/13 Overview (04/23/2019): Immigration Inspector Annual Physical Exam - [facility] Tobacco use Periodontal disease Osteoarthritis [...] LURIA, FLUZONE TRIVALENT; 6MO+) (IIV3) 11/27/2013,11/27/2012,12/10/2010,2009 Covid Lifeables primary monoval ent 12+ yr 0.3mL Purple [...] on file Legal Sex Male 7:11 AM DAILY SALES AUDIT CLERK Gender Identity Not on file Sexual Orientation [...] COMPREHENSIVE METABOLIC PANEL Routine 04/20/2023 7:45 AM DAILY SALES AUDIT CLERK Annual Physical Exam [facility] LIPID PROFILE W TCHOL/HDL Routine 04/20/2023 7:45 AM DAILY SALES AUDIT CLERK Annual Physical Exam [facility] PROSTATE SPECIFIC ANTIGEN SCREEN Routine 04/20/2023 7:45 AM DAILY SALES AUDIT CLERK Annual Physical Exam [facility] HEPATITIS C ANTIBODY Routine 02/18/2019 7:55 AM DAILY SALES AUDIT CLERK Annual Physical Exam [facility] from Last 3 Months or Most Recently Relevant to Health Maintenance Results * (ABNORMAL) LIPID PROFILE W TCHOL/HDL (04/20/2023 7:45 AM DAILY SALES AUDIT CLERK) Cholesterol 179 100 - 199 mg/dL [facility] [...] BLOOD SPECIMEN / Unknown 04/20/2023 7:45 AM DAILY SALES AUDIT CLERK 04/20/2023 Narrative Resulting Agency Comment Lab Testing performed at: Lab[address] [id number] us Esther Monteiro MD LAB - CHEMISTRY ORDERABLES Madonna l Result [facility] ACCOUNT BILL [address] [place] [address] * (ABNORMAL) COMPREHENSIVE METABOLIC PANEL (04/20/2023 7:45 AM DAILY SALES AUDIT CLERK) Glucose 158(H) 70 - 99 mg/dL [facility] [...] BLOOD SPECIMEN / Unknown 04/20/2023 7:45 AM DAILY SALES AUDIT CLERK 04/20/2023 Narrative Resulting Agency Comment [facility] [address] [facility] [id number] us Esther Monteiro MD LAB - CHEMISTRY ORDERABLES Madonna l Result [facility] ACCOUNT BILL [address] [place] [address] * PROSTATE SPECIFIC ANTIGEN SCREEN (04/20/2023 7:45 AM DAILY SALES AUDIT CLERK) PSA 0.4 0.0 - 4.0 ng/mL [facility] ACCOUNT BILL Comment: Shama ECLIA methodology. . According to the [place] Urological Association, Serum PSA should decrease and [...] BLOOD SPECIMEN / Unknown 04/20/2023 7:45 AM DAILY SALES AUDIT CLERK 04/20/2023 Narrative Resulting Agency Comment Lab Testing performed at: [facility] [place] [id number] us Esther Monteiro MD LAB - CHEMISTRY ORDERABLES Madonna l Result Performing Organization Address City/[facility]/ZIP Co de Phone Number [facility] ACCOUNT BILL [address] [place] [address] * HEPATITIS C ANTIBODY (02/18/2019 7:55 AM DAILY SALES AUDIT CLERK) Hepatitis C Antibody 0.1 0.0 - 0.9 s/co ratio [facility] ACCOUNT BILL Comment: Negative: < 0.8 Indeterminate: 0.8 - 0.9 Positive: > 0.9 . The CDC recommends that a positive HCV antibody result be followed up with a HCV Nucleic Acid Amplification test (315497). FASTING Blood BLOOD SPECIMEN / Unknown 02/18/2019 7:55 AM DAILY SALES AUDIT CLERK 02/19/2019 Narrative Resulting Agency Comment Lab Testing performed at: [facility] [address] [facility] [phone] us Kofi Hart MD LAB - CHEMISTRY ORDERABLES Fi nal Result Performing Organization Address City/[facility]/ZIP Co de Phone Number [facility] ACCOUNT BILL [address] [place] [address] from Last 3 Months or Most Recently Relevant to Health Maintenance Care Teams Hay Chopper Relationship Specialty Start Date End Date aSira Bansal, MANAGER WEALTH MANAGEMENT-DEPUTY CLERK [address] [place] [phone] PCP - General Nurse Practitioner Family 05/26/21
--- OUTSIDE RECORDS SUMMARY | 2024-10-07 10:20 | XMS_ITS | Clinical Summary ---
Author Organization [facility] Address [address] [place] [address] Phone Care Team Providers Care Senior Wind Energy Consultant Name Role Phone Unavailable Primary Care Provider Unavailabl e Allergies No known active allergies Medications misoprostol (CYTOTEC) 200 mcg tablet Take 200 mcg by mouth 4 times daily. Active CETIRIZINE HCL (ZYRTEC ORAL) Take by mouth. A ctive indomethacin (INDOCIN) 50 mg capsule 08/25/19 16 Active ibuprofen (MOTRIN) 200 mg tablet Take 200 mg by mouth every 6 hours as needed for Pain, Mild Takes up to 5 tabs per day . Active CIALIS 20 mg tablet TK 1 T PO QD PRN 0 07/20/19 19 Active metFORMIN (GLUCOPHAGE) 500 mg tablet 500 mg daily with breakfast. 02/03/20 20 Active aspirin (TAMIKA) 325 mg tablet Take 1 Tablet (325 mg) by mouth daily. 30 Tablet 11 04/24/19 21 Active Additional Information Patient not taking.Reported on 09/10/2024 montelukast (SINGULAIR) 5 mg Tablet, Chewable Take 5 mg by mouth daily. Active sildenafiL 50 mg tablet Take 50 mg by mouth 1 time daily as needed. 04/27/19 22 Active INDOMETHACIN ORAL Take by mouth. Activ e lisinopriL (PRINIVIL) 20 mg tablet Take 2 Tablets (40 mg) by mouth daily. 90 Tablet 3 09/27/19 25 Active lisinopriL (PRINIVIL) 20 mg tablet Take 1 Tablet (20 mg) by mouth daily. 90 Tablet 3 10/03/19 20 025 Discontinued Active Problems Patient Care Coordination No te Formatting of this note migh t be different from the original. Najma Herrera MD-[facility] @ Caroline Dover NP-[facility] @ Problem Noted Date Diagnosed Date Preop cardiovascular exam 08/17/2022 Arthritis 08/17/2022 Essential hypertension 10/22/2019 SVT (supraventricular tachycardia) 07/11/2018 Pure hypercholesterolemia 07/04/2017 Paroxysmal atrial fibrillation 09/08/2015 Encounters Date Type Department Care Team Description 10/04/2024 Telephone [facility] At [address] [place] [address] Chano Machuca MD Blood Pressure Monitoring 10/01/2024 Results Follow-Up [facility] At [address] [place] [address] Chano Machuca MD BASIC METABOLIC PANEL 09/26/2024 Telephone [facility] At [address] [place] [address] Chano Machuca MD BP Reading 09/10/2024 8:00 AM CDT Office Visit [facility] At [address] [place] [address] Chano Machuca MD Paroxysmal atrial fibrillation (CMS/HCC) [...] declined 09/13/2018 How often do you attend adventist or synagogue serv ices? Patient declined 09/13/2018 Do you belong to any clubs o r organizations such as adventist groups, unions, fraternal or athletic groups, or [...] 36.3 C (97.4 F) 04/23/2020 8:02 AM MACHINE MOLDER SQUEEZE Respiratory Rate 16 09/14/2018 5:05 AM CDT [...] Description 09/12/2025 8:00 AM CDT Office Visit [facility] At [facility] [address] [place] [address] Chano Machuca MD [address] [facility] [address] [place] [address] Health Maintenance Due Date Last [...] ) (1 - 1-dose 75+ series) 05/31/2035 Procedures Procedure Name Priority Date/Time Associated Diagnosis Comments BASIC METABOLIC PANEL Routine 09/30/2024 8:58 AM CDT Essential hypertension from Last 3 Months Results * (ABNORMAL) BASIC METABOLIC PANEL (09/30/2024 8:58 AM CDT) GLUCOSE 200(H) 65 - 139 mg/dL [facility] Comment: Non-fasting reference interval BUN 13 7 - 25 mg/dL [facility] CREATININE 0.76 0.70 - 1.35 mg/dL [facility] GFR 100 > OR = 60 mL/min/1. 73m2 [facility] [place] BUN/CREAT RATIO SEE NOTE: 6 - 22 (calc) Amilcar [facility] [place] Comment: Not Reported: BUN and Creatinine are within reference range. SODIUM 139 135 - 146 mmol/L [facility] POTASSIUM 4.6 3.5 - 5.3 mmol/L Power Efficiency NishiS2C Global SystemsIris [place] CHLORIDE 105 98 - 110 mmol/L Amilcar AlmodovarS2C Global SystemsIris [place] CO2 28 20 - 32 mmol/L [facility] [place] CALCIUM 9.2 8.6 - 10.3 mg/dL [facility] [place] Comment: FASTING:NO FASTING: NO Test Performed at: [facility] [address] [place] [address] Amanda Banks Blood 09/30/2024 8:58 AM CDT 10/01/2024 2:27 AM CDT us Chano Machuca MD CHEMISTRY ORDERABLES Final Resul t [facility] [phone] [facility] [address] [place] [address] from Last 3 Months Advance Directives For more information, please contact: [phone] * Full Code (Latest Code Status on [...]
--- OUTSIDE RECORDS SUMMARY | 2024-10-07 10:20 | XMS_ITS | Encounter Summary ---
Author Organization [facility] Address [address] [place] [address] Care Team Providers Care Cocoa Bean Roaster Helper Name Role Phone Unavailable Primary Care Provider Unavailabl e Reason for Visit * Reason Onset Date Comments Blood Pressure Monitoring 10/04/2024 Encounter Details Date Type Department Care Team (Late st Contact Info) Description 10/04/2024 Telephone [facility] At [facility] [address] [facility] [place] [address] Chano Machuca MD [address] [facility] [address] [place] [address] Blood Pressure Monitoring Social History Tobacco Use Types Packs/Day Years Used Date Smoking Tobacco: Never Smokeless Tobacco: Current Chew Comments:Chew once a week. Alcohol Use Standard [...] declined 09/13/2018 How often do you attend lutheran or jehovah's witness serv ices? Patient declined 09/13/2018 Do you belong to any clubs o r organizations such as lutheran groups, unions, fraternal or athletic groups, or [...] on file documented as of this encounter Miscellaneous Notes * Telephone Encounter - Jyoti Gramajo RN - 10/07/2024 8:11 AM CDT No changes presently but needs the BMP please And let's have him do a full 7 day week of checking BP 1-2 hours after AM meds and then update us w/ a full 7 day record Thx Left message on pt's voicemail with Dr. Machuca's recommendations. * Telephone Encounter - Jigna Black - 10/04/2024 2:06 PM CDT Pt called today and was told to call the office with BP readings 10-03-24 Morning 145/84 Midday 127/65 Evening 140/74 10-05-23 Morning 175/98 Again at 10am 160/84 Again half an hour later 135/79 2pm 138/78 [phone] Thanks documented in this encounter Plan of Treatment Upcoming Encounters Date Type Department Care Team (Late st Contact Info) Description 09/12/2025 8:00 AM CDT Office Visit [facility] At [facility] [address] [facility] [place] [address] Chano Machuca MD [facility] [address] [facility] [address] [place] [address] documented as of this encounter Visit Diagnoses Not on filedocumented in this encounter
--- OUTSIDE RECORDS SUMMARY | 2024-10-07 10:20 | XMS_ITS | Encounter Summary ---
Author Organization [facility] Address [address] [place] [address] Care Team Providers Care Dictaphone Typist Name Role Phone None, Pcp Primary Care Provider Unavailabl e Seth Joiner MD Primary Care Provider [phone] Kofi Hart MD Unavailable [phone] Saira Bansal TRAINING SYSTEMS OFFICER-ORGANIZATIONAL DEVELOPMENT MANAGER Primary Care Provider Kofi Hart MD Unavailable [phone] Encounter Details Date Type Department Care [...] on file Legal Sex Male 7:11 AM SURVEILLANCE MONITOR Gender Identity Not on file Sexual Orientation Not on file documented as of this encounter Plan of Treatment Not on file documented as of this encounter Visit Diagnoses Not on filedocumented in this encounter Care Teams Dictaphone Typist Relationship Specialty Start Date End Date None, [place] [address] PCP - General 03/19/13 04/04/13 Seth Joiner MD [address] [facility] [address] [place] [address] PCP - General Family Medicine 04/05/13 04/22/19 [place] [address] [facility] [place] [address] PCP - Attributed-[employer] Commercial 08/13/18 08/01/19 Saira Bansal, TRAINING SYSTEMS OFFICER-ORGANIZATIONAL DEVELOPMENT MANAGER [address] [place] [address] PCP - General Nurse Practitioner Family 05/26/21 [place] [address] [address] [place] [address] PCP - Attributed-[place] Commercial 04/07/17 06/14/17 documented as of this encounter
[2024-10-07 10:40] LABS: Hemoglobin A1C 6.5 % (<5.7)
[2024-10-07 10:43] LABS: Alanine Aminotransferase 14 U/L (6-50); Albumin Level 4.2 g/dL (3.5-5.1); Alkaline Phosphatase 61 U/L (38-126); Anion Gap 5 mmol/L (4-12); Aspartate Amino Transferase 30 U/L (17-59); Bilirubin,Total 0.6 mg/dL (0.2-1.3); Blood Urea Nitrogen 13 mg/dL (9-20); Calcium 9.9 mg/dL (8.4-10.2); Carbon Dioxide 33 mmol/L (22-30); Chloride 103 mmol/L (98-107); Estimated Glomerular Filt Rate > 60; Glucose 133 mg/dL (65-110); Osmolality Calculated 294 mOsm/kg (285-295); Potassium 4.6 mmol/L (3.4-5.0); Sodium 141 mmol/L (137-145); Total Protein 6.8 g/dL (6.3-8.2)
== END 2024-10-07 09:38 | disposition home or self-care (01) ==
LOC: CHSLAB 09:39
PROVIDERS: PCP Nurse Practitioner Family; Visit Provider Neurological Surgery
DX: Z01.818 Encounter for other preprocedural examination (principal); I45.19 Other right bundle-branch block
CPT/HCPCS: 36415; 80053; 83036; 85025; 93005

== ENCOUNTER 2024-11-27 08:38 | Outpatient (RCR) | payer BC, SELFPAY ==
--- NOTE | 2024-11-27 08:45 | OPREHPOC ---
Outpatient Therapy Plan of Care This is a Multidisciplinary Plan of Care that may contain components documented by all disciplines (PT, OT, and ST.) PT Problem 1 PT Problem #1 Knowledge Deficit PT Goal 1 Goal / Goal Update Independent and compliant with HEP. Target Visit 2 PT Problem 2 PT Problem #2 Impaired Strength PT Goal 1 Goal / Goal Update Pt to improve gross bilat LE strength to 5/5. Pt to improve abdominal strength to 4+/5. Target Visit 8 PT Problem 3 PT Problem #3 Impaired Functional Mobility PT Goal 1 Goal / Goal Update Pt to report 10% or less perceived disability on Oswestry. Pt to report improved steadiness on his feet when ambulating outdoors. Target Visit 8
--- NOTE | 2024-11-27 08:45 | PTOPEVAL1 ---
Assessment and note entered by Jennifer Solitario, PT Evaluation Information Assessment Status Evaluation Diagnosis S/p L3-4 foraminectomy, microdiscectomy ICD-10 Condition Codes (PT) Pain in low back M54.50,Encounter for other orthopedic aftercare Z47.89 Onset 10/21/24 Subjective Information Pt reports he had lumbar surgery (L3-4 lateral foraminectomy and microdiscectomy) 5 weeks ago on 10/21/24. He states the surgery gave him instant relief from his back pain and he no longer has burning down his L leg. He does report mild discomfort and stiffness in his lower back occasionally but that his main concern is still his L knee pain. He reports he notes frequent popping in the L knee when walking and that he cannot walk more than 1 mile without increased knee pain and popping. He had his L knee replaced in 2022 and is seeing an orthopedic surgeon next Monday to discuss what could be done to improve his knee. He reports that since the surgery he feels weak and unstable on his feet. He states that he's had to use a staff when he's out walking . Pt states he is under BLT precautions per his surgeon. He plans to start aquatic exercise to improve his endurance and strength. Reported Pain Level Pain Score 0: Self Report Assessment PT Clinical Summary Mr. Johnson presents to skilled PT evaluation s /p L3-4 foraminectomy and microdiscectomy on . He demonstrates deficits in gross LE strength and abdominal weakness as well as functional limitations in long distance walking and lifting. He will benefit from skilled PT intervention to address these deficits to allow him to return to full independence and participation in functional and recreational activities. Plan of Care Interventions Electrical Stimulation,Gait Training,Hot Pack/Cold Pack,Manual Therapy,Neuro Re-education,Patient/ Caregiver Education,Therapeutic Activities, Therapeutic Exercise,Self-Care/Home Management PT Services Indicated Yes Treatment Frequency and 3x/week for 8 visits Duration These treatments will address the objective and functional deficits as defined above. The patient will be advanced safely and appropriately in order for the patient to progress towards his/her prior level of function. Additional exercises will be introduced and as well as a comprehensive home exercise program upon discharge, if needed, ?to ensure carryover of functional gains achieved in the clinic. This treatment plan has been reviewed and agreement upon by the patient.
--- NOTE | 2024-12-05 08:38 | OPREHPOC ---
Outpatient Therapy Plan of Care This is a Multidisciplinary Plan of Care that may contain components documented by all disciplines (PT, OT, and ST.) PT Problem 1 PT Problem #1 Knowledge Deficit PT Goal 1 Goal / Goal Update Independent and compliant with HEP. Target Visit 2 Progress Met PT Problem 2 PT Problem #2 Impaired Strength PT Goal 1 Goal / Goal Update Pt to improve gross bilat LE strength to 5/5. -met Pt to improve abdominal strength to 4+/5. -not met Target Visit 8 Progress Partially Met PT Problem 3 PT Problem #3 Impaired Functional Mobility PT Goal 1 Goal / Goal Update Pt to report 10% or less perceived disability on Oswestry. -not met Pt to report improved steadiness on his feet when ambulating outdoors. -met Target Visit 8 Progress Partially Met
--- NOTE | 2024-12-05 08:38 | PTOPDC ---
Assessment and note entered by Jennifer Solitario, PT Evaluation Information Assessment Status Discharge Diagnosis S/p L3-4 foraminectomy, microdiscectomy ICD-10 Condition Codes (PT) Pain in low back M54.50,Encounter for other orthopedic aftercare Z47.89 Onset 10/21/24 Subjective Information Seth reports feeling good today and he denies pain. He reports feeling therapy has been helpful and he would like to discharge today due to insurance reasons and he also plans to start doing aquatic workouts at his local fitness center. He reports he has good days and bad days but overall feels good. He also saw a new ortho yesterday to discuss concerns with his L TKA and states the doctor told him his knee is structurally sound and that he just needs to keep moving it. Reported Pain Level Pain Score 0: Self Report Assessment PT Clinical Summary Mr. Johnson has attended 5 skilled PT visits following L3-4 laminectomy and microdiscectomy on 10/21/24. He demonstrates improvements in his abdominal and gross LE strength as well as improved ambulation tolerance. He has met or partially met all goals and is appropriate for discharge from skilled PT treatment to transition to independent exercises with HEP and aquatic fitness. Educated pt on continued HEP adherence to prevent recurrence of symptoms and to maintain progress made in PT. Plan of Care PT Services Indicated No
== END 2024-12-05 11:11 | disposition home or self-care (01) ==
LOC: CHSPT 08:38
PROVIDERS: Visit Provider Neurological Surgery
DX: Z47.89 Encounter for other orthopedic aftercare (principal)
CPT/HCPCS: 97110; 97112; 97161; 97530